=== PATIENT | male | born 1945 | race Caucasian/White ===

== ENCOUNTER 2021-06-15 08:32 | Inpatient (IN) ==
[2021-06-15] MEDS ORDERED: SODIUM CHLORIDE 0.9% 1000ML 1,000 ML IV ONE ×3 (08:45→09:20)
[2021-06-15] MEDS ORDERED: ONDANSETRON INJ 2 MG/ML 2 ML VIAL IV STA (08:45)
[2021-06-15] MEDS ORDERED: fentaNYL citrate 100 MCG/2 ML VIAL IV STA (08:45)
--- NOTE | 2021-06-15 08:50 | Emergency Department Note ---
Impression & Plan Acute necrotizing pancreatitis, Leukocytosis, Acute renal insufficiency, Lactic acidosis ED Provider Note Name: SEVERO CUTLER Age: 75 Sex: M Arrives Via: Walk-In Informant: Patient, Family ED Provider: Mani Bush MD Chief Complaint: Chest Pain Impression: See above Medical Decision Makin yr old male with history of GERD, HTN, HLP, Neuropathy and no previous surgical history arrives with chest & abdominal pain tearing through to back with diffuse abdominal TTP. With symptoms and exam high concern for dissection thus IV obtained, fluids started and sent emergently to CT for evaluation. CT with no acute chest findings, but there is acute pancreatitis with concern necrotizing and possible abscess development. Patient denies history pancr eatitis nor alcohol use. Labs with severely elevated WBC and mild lactate elevation. Sepsis managed with Zosyn, NSS Bolus 3L IV, nss infusion. Pain controlled with IV narcotics. Other labs with mild renal insufficiency though in setting of concern dissection it was felt CT contrast still necessary. LFTs and Bili mildly elevated as well. Patient kept comfortable. Discussed with GI who advised transfer. Attempted to Place for transfer at [facility] but they report they have no available beds. Discussed with Amanda Aldridge who advised that likely not much different treatment if kept at [facility] vs what Amanda would be able to offer at this time. ELI Hale consulted again and plan will be to admit to this facility, keep up agreesive hydration, and monitor in ICU[facility]. Prior Medical Record and Triage/Nursing Notes reviewed by Me Additional history obtained from chart Differentials:Cardiac ischemia, aortic dissection, pulmonary embolism, pneumothorax, pneumonia, pericarditis, myocarditis, esophageal rupture, GERD, cholecystitis, pancreatitis, musculoskeletal, as well as other pathologies. Vital Signs: reviewed and remarkable for Tachy Interventions: Saline lock, nss bolus 3 L IV, Fentanyl 100mcg, Dilaudid 1mg & 0.5mg IV, Zosyn 4.5gm IV Labs:Reviewed and remarkable for elevated wbc, elevated lactate, bumped Cr and elevated LFTs Imaging:X ray results are stated below per my interpretation: Chest: 1 view: No infiltrate, no effusion, normal cardiac border. Radiologist interpretation reviewed by me: See below. Acute pancreatitis with concern abscess/necrosis EKG:Per My Interpretation: Indication Chest Pain: NSR 113 bpm, qtc 452. No Ectopy. No Ischemia. No previous for comparison Cardiac/Tele Monitoring: Cardiac Monitoring: An Order was placed for continuous cardiac monitoring. The monitor shows a rate of 90 with a normal sinus rhythm following sepsis/pain control. Consults:Amanda Hospitalist suggests continued management at [facility]. Kena hospitalist at [place] will admit Plan: Disposition:Hospitalization. Condition: Guarded History of Present Illness:75 yr old male arrives for evaluation of chest pain. Patient with 3 days of chest pain. Substernal and radiates to back. Associated with nausea, vomiting, palpitations. Notes developing severe diffuse abdominal pain over the last few days. Denies headache, cough, chills, fevers, syncope, arm pain, leg weakness, calf swelling, urinary/bowel symptoms nor other symptoms. no medications prior to arrival. Unable to eat nor take meds due to vomiting. No history of similar. Denies trauma, injuries, falls. No previous surgeries. Denies known CAD/Aortic history. ROS: See above HPI for pertinent positives & negatives. A total of 10 systems reviewed and were otherwise negative. Past Medical History:GERD, HTN, HLP, Neuropathy Past Surgical History:none Family History:See Below Social History:See Below Home Medications:See Below Allergies:NKDA Vitals:Blood Pressure: 119/79, Pulse 117, RR 20, T 36.9C, O2 96% on RA Physical Exam: GENERAL: Patient is very unwell appearing and in moderate/severe distress. Moaning loudly EYES: No scleral icterus, unremarkable pupils. ENT: Mucous membranes moist, no nasal congestion. NECK: No masses appreciated, nomeningismus, trachea is midline. RESPIRATORY: No dyspnea. Clear to auscultation and equal bilaterally. No wheeze, no rhonchi. CARDIOVASCULAR: Tachy.No murmurs, rubs, gallops appreciated. GASTROINTESTINAL: Diffuse TTP, mildly distended Abdomen soft, no peritonitis.Bowel sounds positive.No masses appreciated. BACK: No midline tenderness, no CVA tenderness EXTREMITIES: Normal motion all extremities, no cyanosis, no edema. NEUROLOGIC: Hard of hearing, Alert and oriented, no acute motor or sensory deficits, no focal weakness, cranial nerves grossly intact. SKIN: No rash, no jaundice, no diaphoresis. PSYCH: Appropriate GCS: 15 ED Course: Times/Reassessments: vastly improved pain with narcotics though requiring repeat dosing, abdomen without tense nor evidence compartment syndrome. Breathing comfortably. Given increased hydration with evidence of sepsis and hospitalist in to evaluate further. Critical Care: I have personally spent 50 minutes of critical care time in the direct management of this patient. Necrotizing Pancreatitis with severe sepsis. This was a life/limb threatening event. This 50 minutes is in excess of all separately billable procedures. Mani Bush MD Past Med/Surg History Medical History BPH (benign prostatic hyperplasia) GERD (gastroesophageal reflux disease) Hyperlipidemia Hypertension Surgical History H/O: vasectomy Social History Smoking Status: Former smoker Hx Alcohol Use: Yes Alcohol type: beer Hx Substance Use: No Preferred Language: Belizean Communication Ability: Effective Irrigator Sprinkling System Required: No Beliefs That Will Affect Care: None Current Living Situation: Family Other Information That Helps Us Care for You: No Feels Safe at Home: Yes Safety Concerns: Feels Safe At This Time Assistive Devices: Cane, Glasses, Hearing Aid - Left, Hearing Aid - Right and Oxygen - Continuous Allergies Allergies Allergy/AdvReac Type Severity Reaction Status Date / Time No Known Allergies Allergy Verified 06/15/21 10:29 Home Meds Home Medications Medication Instructions Recorded Confirmed atorvastatin 20 mg tablet (Lipitor) 20 mg PO HS 10/28/20 06/15/21 famotidine 20 mg tablet (Pepcid) 20 mg PO BID 10/28/20 06/15/21 lisinopril 20 1 tab PO QAM 10/28/20 06/15/21 mg-hydrochlorothiazide 25 mg tablet (Zestoretic) omega-3 fatty acids-fish oil 340 1 cap PO QAM 10/28/20 06/15/21 mg-1,000 mg capsule (Fish Oil) cholecalciferol (vitamin D3) 50 50 mcg PO QAM 06/15/21 06/15/21 mcg (2,000 unit) capsule (Vitamin D3) finasteride 5 mg tablet (Proscar) 5 mg PO QAM 06/15/21 06/15/21 potassium citrate 10 mEq (1,080 10 meq PO BID 06/15/21 06/15/21 mg) tablet,extended release (Urocit-K 10) tamsulosin 0.4 mg capsule (Flomax) 0.4 mg PO HS 06/15/21 06/15/21 Results & Data (ED) Vital Signs Vital Signs - 24 hr 06/15/21 08:32 06/15/21 08:36 06/15/21 10:32 Temperature 36.9 C 36.9 C Temperature Source Temporal Artery Scan Temporal Artery Scan Pulse Rate 117 H Pulse Rate [Apical] 98 H Pulse Rate from SpO2 Sensor Pulse Rhythm Regular Pulse Strength Normal Respiratory Rate 20 20 Respiratory Effort / Characteristics Non-Labored Spontaneous Non-Labored Spontaneous Non-Labored Spontaneous Respiratory Depth Normal Normal Normal Respiratory Pattern Regular Regular Blood Pressure 119/79 Blood Pressure [Right Arm] 169/87 H Blood Pressure Mean 92 Blood Pressure Mean [Right Arm] 114 Blood Pressure Position Sitting Blood Pressure Position [Right Arm] Lying Pulse Oximetry 96 96 Oxygen Delivery Method Room Air Room Air Room Air Sepsis Recent Fever Within 48 Hours No Sepsis New/Unexplained Change in Mental Status N/A Sepsis Action Taken by Nursing No Action Required 06/15/21 12:00 06/15/21 13:30 Temperature Temperature Source Pulse Rate 107 H 105 H Pulse Rate [Apical] Pulse Rate from SpO2 Sensor 107 H 105 H Pulse Rhythm Pulse Strength Respiratory Rate 20 18 Respiratory Effort / Characteristics Respiratory Depth Respiratory Pattern Blood Pressure 132/81 142/88 H Blood Pressure [Right Arm] Blood Pressure Mean 98 106 Blood Pressure Mean [Right Arm] Blood Pressure Position Blood Pressure Position [Right Arm] Pulse Oximetry 91 91 Oxygen Delivery Method Sepsis Recent Fever Within 48 Hours Sepsis New/Unexplained Change in Mental Status Sepsis Action Taken by Nursing Laboratory Data Result diagrams: 06/16/21 05:23 06/16/21 05:23 Lab Results 06/15/21 06/15/21 06/15/21 Range/Units 08:53 08:53 08:53 WBC 39.22 H* (4.8-10.8) K/uL RBC 5.55 (4.7-6.1) M/uL Hgb 18.0 (14.0-18.0) g/dL POC Hgb (14.0-18.0) g/dl Hct 50.2 (42-52) % POC Hct (42-52) % MCV 90.5 (80-100) fL MCH 32.4 (25-34) pg MCHC 35.9 (32-36) g/dL RDW Std Deviation 44.1 (36.4-46.3) fL RDW Coeff of Yinka 13.6 (11.5-14.5) % Plt Count 263 (130-400) K/uL MPV 9.4 (7.4-10.4) fL Immature Gran % (Auto) 0.7 % Neut % (Auto) 88.4 % Lymph % (Auto) 2.1 % [place] % (Auto) 8.8 % Eos % (Auto) 0.0 % Baso % (Auto) 0.0 % Neut # (Auto) 34.66 H (1.4-6.5) K/uL Lymph # (Auto) 0.82 L (1.2-3.4) K/uL [place] # (Auto) 3.46 H (0.11-0.59) K/uL Eos # (Auto) 0.00 (0-0.5) K/uL Baso # (Auto) 0.01 (0-0.2) K/uL Immature Gran # (Auto) 0.27 H (0.00-0.02) K/uL PT 13.0 H (9.0-12.0) Seconds INR 1.3 H (0.9-1.1) APTT 25.8 (21.0-31.0) Seconds PTT Ratio 1.0 POC Sodium (135-144) mmol/L Sodium 133 L (136-145) mmol/L POC Potassium (3.3-5.0) mmol/L Potassium 3.9 (3.5-5.1) mmol/L POC Chloride (101-112) mmol/L Chloride 99 (98-107) mmol/L Carbon Dioxide 25 (21-32) mmol/L POC Total CO2 (24-31) mmol/L Anion Gap 9.0 (3-11) POC Anion Gap (16-25) mmol/L POC BUN (7-18) mg/dl BUN 40 H (7-18) mg/dl Creatinine 1.89 H (0.6-1.4) mg/dl POC Creatinine (0.6-1.3) mg/dl Est Cr Clr Drug Dosing 40.3 ml/min Est GFR ( Amer) 39.6 ml/min Est GFR (Non-Af Amer) 34.2 ml/min BUN/Creatinine Ratio 20.9 H (10-20) Glucose 141 H (70-99) mg/dl POC Glucose (other) (70-99) mg/dl Lactate (0.4-2.0) mmol/L Calcium 8.5 (8.5-10.1) mg/dl POC Ioniz Calcium Leonard (1.12-1.32) mmol/l Magnesium 1.5 L (1.8-2.4) mg/dl Total Bilirubin 2.6 H (0.2-1) mg/dl Direct Bilirubin 1.0 H (0-0.2) mg/dl AST 286 H (15-37) U/L ALT 631 H (12-78) U/L Alkaline Phosphatase 143 H (45-117) U/L Troponin I < 0.015 (0-0.045) ng/ml Total Protein 7.7 (6.4-8.2) gm/dl Albumin 3.7 (3.4-5.0) gm/dl Lipase 4141 H (73-393) U/L COVID-19 Eval Order SARS-CoV-2 (PCR) (Negative) 06/15/21 06/15/21 06/15/21 Range/Units 09:01 09:14 09:14 WBC (4.8-10.8) K/uL RBC (4.7-6.1) M/uL Hgb (14.0-18.0) g/dL POC Hgb 18.7 H (14.0-18.0) g/dl Hct (42-52) % POC Hct 55 H (42-52) % MCV (80-100) fL MCH (25-34) pg MCHC (32-36) g/dL RDW Std Deviation (36.4-46.3) fL RDW Coeff of Yinka (11.5-14.5) % Plt Count (130-400) K/uL MPV (7.4-10.4) fL Immature Gran % (Auto) % Neut % (Auto) % Lymph % (Auto) % [place] % (Auto) % Eos % (Auto) % Baso % (Auto) % Neut # (Auto) (1.4-6.5) K/uL Lymph # (Auto) (1.2-3.4) K/uL [place] # (Auto) (0.11-0.59) K/uL Eos # (Auto) (0-0.5) K/uL Baso # (Auto) (0-0.2) K/uL Immature Gran # (Auto) (0.00-0.02) K/uL PT (9.0-12.0) Seconds INR (0.9-1.1) APTT (21.0-31.0) Seconds PTT Ratio POC Sodium 134 L (135-144) mmol/L Sodium (136-145) mmol/L POC Potassium 3.8 (3.3-5.0) mmol/L Potassium (3.5-5.1) mmol/L POC Chloride 96 L (101-112) mmol/L Chloride (98-107) mmol/L Carbon Dioxide (21-32) mmol/L POC Total CO2 22 L (24-31) mmol/L Anion Gap (3-11) POC Anion Gap 21.0 (16-25) mmol/L POC BUN 40 H (7-18) mg/dl BUN (7-18) mg/dl Creatinine (0.6-1.4) mg/dl POC Creatinine 1.7 H (0.6-1.3) mg/dl Est Cr Clr Drug Dosing ml/min Est GFR ( Amer) ml/min Est GFR (Non-Af Amer) ml/min BUN/Creatinine Ratio (10-20) Glucose (70-99) mg/dl POC Glucose (other) 148 H (70-99) mg/dl Lactate (0.4-2.0) mmol/L Calcium (8.5-10.1) mg/dl POC Ioniz Calcium Leonard 1.02 L (1.12-1.32) mmol/l Magnesium (1.8-2.4) mg/dl Total Bilirubin (0.2-1) mg/dl Direct Bilirubin (0-0.2) mg/dl AST (15-37) U/L ALT (12-78) U/L Alkaline Phosphatase (45-117) U/L Troponin I (0-0.045) ng/ml Total Protein (6.4-8.2) gm/dl Albumin (3.4-5.0) gm/dl Lipase (73-393) U/L COVID-19 Eval Order Covid19 at [facility] SARS-CoV-2 (PCR) NEGATIVE (Negative) 06/15/21 06/15/21 Range/Units 09:41 12:20 WBC (4.8-10.8) K/uL RBC (4.7-6.1) M/uL Hgb (14.0-18.0) g/dL POC Hgb (14.0-18.0) g/dl Hct (42-52) % POC Hct (42-52) % MCV (80-100) fL MCH (25-34) pg MCHC (32-36) g/dL RDW Std Deviation (36.4-46.3) fL RDW Coeff of Yinka (11.5-14.5) % Plt Count (130-400) K/uL MPV (7.4-10.4) fL Immature Gran % (Auto) % Neut % (Auto) % Lymph % (Auto) % [place] % (Auto) % Eos % (Auto) % Baso % (Auto) % Neut # (Auto) (1.4-6.5) K/uL Lymph # (Auto) (1.2-3.4) K/uL [place] # (Auto) (0.11-0.59) K/uL Eos # (Auto) (0-0.5) K/uL Baso # (Auto) (0-0.2) K/uL Immature Gran # (Auto) (0.00-0.02) K/uL PT (9.0-12.0) Seconds INR (0.9-1.1) APTT (21.0-31.0) Seconds PTT Ratio POC Sodium (135-144) mmol/L Sodium (136-145) mmol/L POC Potassium (3.3-5.0) mmol/L Potassium (3.5-5.1) mmol/L POC Chloride (101-112) mmol/L Chloride (98-107) mmol/L Carbon Dioxide (21-32) mmol/L POC Total CO2 (24-31) mmol/L Anion Gap (3-11) POC Anion Gap (16-25) mmol/L POC BUN (7-18) mg/dl BUN (7-18) mg/dl Creatinine (0.6-1.4) mg/dl POC Creatinine (0.6-1.3) mg/dl Est Cr Clr Drug Dosing ml/min Est GFR ( Amer) ml/min Est GFR (Non-Af Amer) ml/min BUN/Creatinine Ratio (10-20) Glucose (70-99) mg/dl POC Glucose (other) (70-99) mg/dl Lactate 2.6 H* 3.0 H* (0.4-2.0) mmol/L Calcium (8.5-10.1) mg/dl POC Ioniz Calcium Leonard (1.12-1.32) mmol/l Magnesium (1.8-2.4) mg/dl Total Bilirubin (0.2-1) mg/dl Direct Bilirubin (0-0.2) mg/dl AST (15-37) U/L ALT (12-78) U/L Alkaline Phosphatase (45-117) U/L Troponin I (0-0.045) ng/ml Total Protein (6.4-8.2) gm/dl Albumin (3.4-5.0) gm/dl Lipase (73-393) U/L COVID-19 Eval Order SARS-CoV-2 (PCR) (Negative) Administered Medications Atorvastatin Calcium (Atorvastatin 20 Mg Tab) 20 mg PO HS APOLLO Stop: 07/15/21 20:59 Last Admin: 06/15/21 21:24 Dose: 20 mg Documented by: [id number] Famotidine (Famotidine 20 Mg Tab) 20 mg PO BID APOLLO Stop: 07/15/21 20:59 Last Admin: 06/15/21 21:24 Dose: 20 mg Documented by: [id number] Heparin Sodium (Porcine) (Heparin Sod 5,000 Unit/0.5 Ml Vial) 5,000 units SQ Q12H APOLLO Stop: 07/16/21 05:59 Last Admin: 06/16/21 05:26 Dose: 5,000 units Documented by: [id number] Hydromorphone HCl (Hydromorphone Inj 1 Mg/Ml Syringe) 1 mg IV Q2H PRN PRN Reason: Pain Stop: 06/29/21 16:43 Last Admin: 06/16/21 05:39 Dose: 1 mg Documented by: [id number] Admin: 06/16/21 03:29 Dose: 1 mg Documented by: [id number] Admin: 06/16/21 00:02 Dose: 1 mg Documented by: [id number] Admin: 06/15/21 21:17 Dose: 1 mg Documented by: [id number] Lactated Ringer's (Lr) 1,000 mls @ 100 mls/hr IV .Q10H APOLLO Stop: 07/15/21 13:59 Last Admin: 06/16/21 05:26 Dose: 100 mls/hr Documented by: [id number] Infusion: 06/16/21 05:26 Dose: 150 mls/hr Documented by: [id number] Infusion: 06/16/21 01:36 Dose: 150 mls/hr Documented by: [id number] Admin: 06/15/21 23:35 Dose: 200 mls/hr Documented by: [id number] Infusion: 06/15/21 23:35 Dose: 200 mls/hr Documented by: [id number] Infusion: 06/15/21 22:08 Dose: 200 mls/hr Documented by: [id number] Admin: 06/15/21 19:02 Dose: 250 mls/hr Documented by: [id number] Infusion: 06/15/21 19:02 Dose: 250 mls/hr Documented by: [id number] Admin: 06/15/21 15:45 Dose: 250 mls/hr Documented by: [id number] Meropenem 500 mg/ Syringe 10 mls @ 2 mls/min IV Q8H APOLLO; Protocol Stop: 06/25/21 15:59 Last Admin: 06/16/21 00:01 Dose: 2 mls/min Documented by: [id number] Admin: 06/15/21 17:18 Dose: 2 mls/min Documented by: [id number] Tamsulosin HCl (Tamsulosin Hcl 0.4 Mg Cap) 0.4 mg PO HS APOLLO Stop: 07/15/21 20:59 Last Admin: 06/15/21 21:25 Dose: 0.4 mg Documented by: [id number] Discontinued Medications Fentanyl Citrate (Fentanyl Citrate 100 Mcg/2 Ml Vial) 75 mcg IV NOW STA Stop: 06/15/21 08:46 Last Admin: 06/15/21 09:10 Dose: 75 mcg Documented by: [id number] Heparin Sodium (Porcine) (Heparin Sod 5,000 Unit/0.5 Ml Vial) 5,000 units SQ NOW STA Stop: 06/15/21 16:06 Last Admin: 06/15/21 16:49 Dose: 5,000 units Documented by: [id number] Hydromorphone HCl (Hydromorphone Inj 1 Mg/Ml Syringe) 1 mg IV NOW STA Stop: 06/15/21 11:19 Last Admin: 06/15/21 11:23 Dose: 1 mg Documented by: [id number] Hydromorphone HCl (Hydromorphone Inj 0.5 Mg/0.5 Ml Syr) 0.5 mg IV NOW STA Stop: 06/15/21 12:21 Last Admin: 06/15/21 12:30 Dose: 0.5 mg Documented by: [id number] Hydromorphone HCl (Hydromorphone Inj 0.5 Mg/0.5 Ml Syr) 0.5 mg IV Q4H PRN PRN Reason: Pain Stop: 06/29/21 15:43 Last Admin: 06/15/21 16:22 Dose: 0.5 mg Documented by: [id number] Hydromorphone HCl (Hydromorphone Inj 1 Mg/Ml Syringe) 1 mg IV NOW STA Stop: 06/15/21 16:44 Last Admin: 06/15/21 16:48 Dose: 1 mg Documented by: [id number] Sodium Chloride (Nss 1000ml) 1,000 mls @ 999 mls/hr IV .Q1H1M ONE Stop: 06/15/21 09:45 Last Infusion: 06/15/21 10:46 Dose: 0 mls/hr Documented by: [id number] Admin: 06/15/21 09:10 Dose: 999 mls/hr Documented by: [id number] Sodium Chloride (Nss 1000ml) 1,000 mls @ 999 mls/hr IV .Q1H1M ONE Stop: 06/15/21 10:18 Last Infusion: 06/15/21 12:32 Dose: 0 mls/hr Documented by: [id number] Admin: 06/15/21 11:19 Dose: 999 mls/hr Documented by: [id number] Piperacillin Sod/Tazobactam Sod (Zosyn) 4.5 gm in 120 mls @ 240 mls/hr IV NOW STA Stop: 06/15/21 09:49 Last Infusion: 06/15/21 11:19 Dose: 0 mls/hr Documented by: [id number] Admin: 06/15/21 10:23 Dose: 240 mls/hr Documented by: [id number] Sodium Chloride (Nss 1000ml) 1,000 mls @ 999 mls/hr IV .Q1H1M ONE Stop: 06/15/21 10:20 Last Infusion: 06/15/21 12:32 Dose: 0 mls/hr Documented by: [id number] Admin: 06/15/21 10:23 Dose: 999 mls/hr Documented by: [id number] Sodium Chloride (Nss 1000ml) 1,000 mls @ 250 mls/hr IV .Q4H APOLLO Stop: 07/15/21 12:29 Last Infusion: 06/15/21 14:55 Dose: 0 mls/hr Documented by: [id number] Admin: 06/15/21 12:30 Dose: 125 mls/hr Documented by: [id number] Magnesium Sulfate/Dextrose (Magnesium Sulfate / D5w) 1 gm in 100 mls @ 50 mls/hr IV Q2H APOLLO Stop: 06/15/21 21:25 Last Infusion: 06/15/21 21:50 Dose: 0 mls/hr Documented by: [id number] Admin: 06/15/21 19:43 Dose: 50 mls/hr Documented by: [id number] Infusion: 06/15/21 19:43 Dose: 50 mls/hr Documented by: [id number] Admin: 06/15/21 17:53 Dose: 50 mls/hr Documented by: [id number] Ondansetron HCl (Ondansetron Inj 2 Mg/Ml 2 Ml Vial) 4 mg IV NOW STA Stop: 06/15/21 08:46 Last Admin: 06/15/21 09:10 Dose: 4 mg Documented by: [id number] Imaging Data Radiologist's Impression: Abdomen/Pelvis CTA 06/15/21 08:45 CT angio abd pelvis wo/w con CT DOSE: CLINICAL HISTORY: tearing chest pain from chest in to entire abdomen TECHNIQUE: A dose lowering technique was utilized adhering to the principles of ALARA. COMPARISON STUDY: None. FINDINGS: Abdominal aorta is normal in caliber with scattered calcifications of its wall. There is no dissection or aneurysmal dilatation is seen. Liver, spleen and bilateral adrenal glands are unremarkable. Gallbladder is fluid-filled without intraluminal radiopaque gallstones. Evaluation of the pancreas shows 3.3 cm area of decreased opacification within pancreatic body, extensive peripancreatic fat stranding and 2.6 x 2.2 cm fluid collection at superior aspect of the pancreatic body concerning for acute pancreatitis which is complicated by focal area of necrosis and possible abscess formation. Scattered areas of fluid collection is seen extending from the pancreas to the lower abdomen and right and left paracolic gutter. Evaluation of the kidneys shows no evidence of hydronephrosis or nephrolithiasis. Urinary bladder is adequately filled with urine. Prostate gland is mildly enlarged. There is large diverticulum at the first portion of duodenum with diffuse enhancement of its mucosa and air-fluid level. Second and third portion of duodenum shows mild thickening of its wall and diffuse mucosal enhancement, likely reactive due to close proximity to the pancreas. Distal loops of small bowel are collapsed. Large bowel is nondilated. Diverticulosis of sigmoid colon is seen without evidence of diverticulitis. Adenopathy: None. Osseous structures: Degenerative changes of the spine. IMPRESSION: 1. Acute pancreatitis. Possible pancreatic necrosis and abscess/cyst formation. Short-term follow-up is recommended. Report will be sent to emergency Department. 2. Large duodenal diverticulum. Mucosal enhancement and wall thickening of proximal duodenum, likely reactive due to surrounding inflammatory changes from acute pancreatitis. 3. Diverticulosis of sigmoid colon without evidence of diverticulitis. 4. Normal abdominal aorta without aneurysmal dilatation or dissection. 5. The rest of findings as above. ACT 112: Negative or not required by law. The above report was generated using voice recognition software. It may contain grammatical, syntax or spelling errors. Electronically signed by: Shandra Pérez DO 06/15/2021 10:54 AM Chest CTA 06/15/21 08:45 CT ANGIOGRAM OF THE CHEST COMBO CLINICAL HISTORY: Lower chest pain is at radiates into entire back. Vomiting. COMPARISON STUDY: None TECHNIQUE: Before and following the IV administration of 120 cc of Optiray, CT angiogram of the chest was performed from the thoracic inlet to the upper abdomen utilizing the dissection protocol. Images are reviewed in the axial, sagittal, and coronal planes. 3-D MIPS images are created and assessed. IV contrast was administered without complication. A dose lowering technique was utilized adhering to the principles of ALARA. CT DOSE: 2573.26 mGy.cm FINDINGS: Thyroid: Imaged portions of the thyroid gland are normal in size and attenuation. Mild wall thinning of distal esophagus with surrounding fat stranding (6/179). Small fat containing hiatal hernia is seen. Thoracic aorta: The thoracic aorta is normal in caliber and demonstrates standard 3-vessel arch anatomy. No dissection is seen. Minimal calcified aortic wall plaques are seen within aortic arch. Pulmonary vasculature: Is normal in caliber. Heart: The heart is normal in size and configuration, and without pericardial effusion. Coronary calcifications are seen. Lungs and pleural spaces: Tracheobronchial tree is patent. Small amount of secretion is seen within right tracheal wall, vinny and dependent portion of the left mainstem bronchus. Patchy consolidative opacities are seen at dependent portion of the left lower lobe and lingula which opacified with IV contrast most likely representing atelectasis. Mild diffuse thickening of bronchial rios are seen throughout bilateral lungs. Mild compressive atelectasis is seen at dependent portions of bilateral lower lobes. Limited evaluation due to motion artifact and low inspiratory effort. Trace left pleural effusion is seen. Upper abdomen: Please see separate report of CT of abdomen and pelvis. Skeletal structures: No multilevel degenerative changes of the spine with prominent anterior osteophytes. IMPRESSION: 1. Mild wall thickening and surrounding fat stranding within distal esophagus which might represent esophagitis versus other etiology. Please correlate above- mentioned findings with GI evaluation. 2. Normal appearance of aorta without aneurysmal dilatation or dissection. 3. Atelectasis within lingula and left lower lobe. Possible bronchitis. Trace left pleural effusion. 4. Atherosclerosis. 5. The rest of findings as above. ACT 112: Negative or not required by law. The above report was generated using voice recognition software. It may contain grammatical, syntax or spelling errors. Electronically signed by: Shandra Pérez DO 06/15/2021 10:39 AM Chest X-Ray 06/15/21 08:45 XR chest 1V portable CLINICAL HISTORY: chest pain COMPARISON STUDY: No previous studies for comparison. FINDINGS: No pneumothorax. Mild blunting of the left costophrenic angle which could be due to atelectasis or small left pleural effusion. Linear density at the left base might represent atelectasis or infiltrates. Overall lung volumes are decreased with crowded lung markings. Cardiomediastinal silhouette is within normal limits in size. No significant pulmonary vascular congestion.. Aorta is tortuous. Osseous structures: Degenerative changes of the spine and bilateral shoulder. IMPRESSION: 1. Atelectasis or infiltrate at the left base. Possible small left pleural effusion. ACT 112: Negative or not required by law. The above report was generated using voice recognition software. It may contain grammatical, syntax or spelling errors. Electronically signed by: Shandra Pérez DO 06/15/2021 10:27 AM Discharge Plan Visit Data Chief Complaint: Chest Pain Stated Complaint: CHEST PAIN INTO LOWER BACK ED Provider: Mani Bush Discharge Problem: Acute necrotizing pancreatitis, Leukocytosis, Acute renal insufficiency, Lactic acidosis Patient Disposition: Admitted As Inpatient Discharge Instructions Interventions: ED Discharge Assessment Last Done: 06/15/21 15:00
[2021-06-15 09:14] LABS: iSTAT Creatinine 1.7 mg/dl (0.6-1.3); iSTAT Hemoglobin 18.7 g/dl (14.0-18.0); iSTAT Ionized Calcium 1.02 mmol/l (1.12-1.32); iSTAT Potassium 3.8 mmol/L (3.3-5.0)
[2021-06-15 09:14] LABS: Hematocrit (blood only) 50.2 % (42-52); Mean Corpuscular Hemoglobin 32.4 pg (25-34); Mean Corpuscular Hgb Conc 35.9 g/dL (32-36); Mean Corpuscular Volume 90.5 fL (80-100); Mean Platelet Volume 9.4 fL (7.4-10.4); Platelet Count 263 K/uL (130-400); RDW Coefficient of Variation 13.6 % (11.5-14.5); RDW Standard Deviation 44.1 fL (36.4-46.3); Red Blood Count 5.55 M/uL (4.7-6.1); White Blood Count 39.22 K/uL (4.8-10.8)
[2021-06-15 09:17] LABS: INR 1.3 (0.9-1.1); Partial Thromboplastin Time 25.8 Seconds (21.0-31.0)
[2021-06-15] MEDS ORDERED: PIPERACILLIN/TAZOBACTAM 4.5 GM/120 ML BAG IV STA (09:20)
[2021-06-15 09:24] LABS: Alanine Aminotransferase 631 U/L (12-78); Albumin Level 3.7 gm/dl (3.4-5.0); Aspartate Aminotransferase 286 U/L (15-37); BUN Creatinine Ratio 20.9 (10-20); Blood Urea Nitrogen 40 mg/dl (7-18); Calcium 8.5 mg/dl (8.5-10.1); Carbon Dioxide 25 mmol/L (21-32); Chloride 99 mmol/L (98-107); Creatinine Clr Calc Pharmacy 40.3 ml/min; Est GFR (African American) 39.6 ml/min; Est GFR (Non-African American) 34.2 ml/min; Glucose 141 mg/dl (70-99); Magnesium 1.5 mg/dl (1.8-2.4); Potassium 3.9 mmol/L (3.5-5.1); Sodium 133 mmol/L (136-145)
[2021-06-15 09:29] LABS: Alkaline Phosphatase 143 U/L (45-117); Bilirubin,Total 2.6 mg/dl (0.2-1); Lipase 4141 U/L (73-393); Total Protein 7.7 gm/dl (6.4-8.2); Troponin I < 0.015 ng/ml (0-0.045)
[2021-06-15 09:47] LABS: Basophils # (auto) 0.01 K/uL (0-0.2); Immature Granulocytes # (auto) 0.27 K/uL (0.00-0.02); Immature Granulocytes % (auto) 0.7 %; Lymphocytes # (auto) 0.82 K/uL (1.2-3.4); Lymphocytes % (auto) 2.1 %; Monocytes # (auto) 3.46 K/uL (0.11-0.59); Monocytes % (auto) 8.8 %; Neutrophils # (auto) 34.66 K/uL (1.4-6.5); Neutrophils % (auto) 88.4 %
--- NOTE | 2021-06-15 10:29 | XRay Report ---
XR chest 1V portable CLINICAL HISTORY: chest pain COMPARISON STUDY: No previous studies for comparison. FINDINGS: No pneumothorax. Mild blunting of the left costophrenic angle which could be due to atelectasis or small left pleural effusion. Linear density at the left base might represent atelectasis or infiltrates. Overall lung volumes are decreased with crowded lung markings. Cardiomediastinal silhouette is within normal limits in size. No significant pulmonary vascular congestion.. Aorta is tortuous. Osseous structures: Degenerative changes of the spine and bilateral shoulder. IMPRESSION: 1. Atelectasis or infiltrate at the left base. Possible small left pleural effusion. ACT 112: Negative or not required by law. The above report was generated using voice recognition software. It may contain grammatical, syntax o r spelling errors. Electronically signed by: Shandra Pérez DO 06/15/2021 10:27 AM
--- NOTE | 2021-06-15 10:41 | CT Scan Report ---
CT ANGIOGRAM OF THE CHEST COMBO CLINICAL HISTORY: Lower chest pain is at radiates into entire back. Vomiting. COMPARISON STUDY: None TECHNIQUE: Before and following the IV administration of 120 cc of Optiray, CT angiogram of the chest was performed from the thoracic inlet to the upper abdomen utilizing the dissection protocol. Images are reviewed in the axial, sagittal, and coronal planes. 3-D MIPS images are created and assessed. I V contrast was administered without complication. A dose lowering technique was utilized adhering to the principles of ALARA. CT DOSE: 2573.26 mGy.cm FINDINGS: Thyroid: Imaged portions of the thyroid gland are normal in size and attenuation. Mild wall thinning of distal esophagus with surrounding fat stranding (6/179). Small fat containing h iatal hernia is seen. Thoracic aorta: The thoracic aorta is normal in caliber and demonstrates standard 3-vessel arch anato my. No dissection is seen. Minimal calcified aortic wall plaques are seen within aortic arch. Pulmonary vasculature: Is normal in caliber. Heart: The heart is normal in size and configuration, and without pericardial effusion. Coronary calc ifications are seen. Lungs and pleural spaces: Tracheobronchial tree is patent. Small amount of secretion is seen within right tracheal wall, vinny and dependent portion of the lef t mainstem bronchus. Patchy consolidative opacities are seen at dependent portion of the left lower lobe and lingula which opacified with IV contrast most likely representing atelectasis. Mild diffuse thickening of bronchial rios are seen throughout bilateral lungs. Mild compressive atelectasis is seen at dependent portions of bilateral lower lobes. Limited evaluation due to motion artifact and low inspiratory effort. Trace left pleural effusion is seen. Upper abdomen: Please see separate report of CT of abdomen and pelvis. Skeletal structures: No multilevel degenerative changes of the spine with prominent anterior osteophy jumana. IMPRESSION: 1. Mild wall thickening and surrounding fat stranding within distal esophagus which might represent esophagitis versus other etiology. Please correlate above-mentioned findings with GI evaluation. 2. Normal appearance of aorta without aneurysmal dilatation or dissection. 3. Atelectasis within lingula and left lower lobe. Possible bronchitis. Trace left pleural effusion. 4. Atherosclerosis. 5. The rest of findings as above. ACT 112: Negative or not required by law. The above report was generated using voice recognition software. It may contain grammatical, syntax o r spelling errors. Electronically signed by: Shandra Pérez DO 06/15/2021 10:39 AM
--- NOTE | 2021-06-15 10:55 | CT Scan Report ---
CT angio abd pelvis wo/w con CT DOSE: CLINICAL HISTORY: tearing chest pain from chest in to entire abdomen TECHNIQUE: A dose lowering technique was utilized adhering to the principles of ALARA. COMPARISON STUDY: None. FINDINGS: Abdominal aorta is normal in caliber with scattered calcifications of its wall. There is no dissectio n or aneurysmal dilatation is seen. Liver, spleen and bilateral adrenal glands are unremarkable. Gallbladder is fluid-filled without intraluminal radiopaque gallstones. Evaluation of the pancreas shows 3.3 cm area of decreased opacification within pancreatic body, exten sive peripancreatic fat stranding and 2.6 x 2.2 cm fluid collection at superior aspect of the pancrea tic body concerning for acute pancreatitis which is complicated by focal area of necrosis and possibl e abscess formation. Scattered areas of fluid collection is seen extending from the pancreas to the lower abdomen and righ t and left paracolic gutter. Evaluation of the kidneys shows no evidence of hydronephrosis or nephrolithiasis. Urinary bladder is adequately filled with urine. Prostate gland is mildly enlarged. There is large diverticulum at the first portion of duodenum with diffuse enhancement of its mucosa and air-fluid level. Second and third portion of duodenum shows mild thickening of its wall and diffu se mucosal enhancement, likely reactive due to close proximity to the pancreas. Distal loops of small bowel are collapsed. Large bowel is nondilated. Diverticulosis of sigmoid colon is seen without evid ence of diverticulitis. Adenopathy: None. Osseous structures: Degenerative changes of the spine. IMPRESSION: 1. Acute pancreatitis. Possible pancreatic necrosis and abscess/cyst formation. Short-term follow-up is recommended. Report will be sent to emergency Department. 2. Large duodenal diverticulum. Mucosal enhancement and wall thickening of proximal duodenum, likely reactive due to surrounding inflammatory changes from acute pancreatitis. 3. Diverticulosis of sigmoid colon without evidence of diverticulitis. 4. Normal abdominal aorta without aneurysmal dilatation or dissection. 5. The rest of findings as above. ACT 112: Negative or not required by law. The above report was generated using voice recognition software. It may contain grammatical, syntax o r spelling errors. Electronically signed by: Shandra Pérez DO 06/15/2021 10:54 AM
[2021-06-15] MEDS ORDERED: HYDROmorphone INJ 1 MG/ML SYRINGE IV STA ×2 (11:18→16:43)
[2021-06-15] MEDS ORDERED: HYDROmorphone INJ 0.5 MG/0.5 ML SYR IV STA (12:20)
[2021-06-15] MEDS ORDERED: SODIUM CHLORIDE 0.9% 1000ML 1,000 ML IV SCH (12:30)
--- NOTE | 2021-06-15 13:52 | History & Physical Report ---
Date of Service June 15, 2021 Assessment & Plan (1) Sepsis: (2) Acute necrotizing pancreatitis: Plan: This is a 75yo M with a PMH of HTN, HLD, peripheral neuropathy who presents with worsening abdominal pain x3 days. HR 117, WBC 39, lactate 3.0 Tbili 2.6, dbili 1, AST 286, ALT 631, alk phos 142, lipase 4,141 CT abd/pelvis with acute pancreatitis. Possible pancreatic necrosis and abscess/cyst formation No history of pancreatitis. Denies tobacco or alcohol use. ? Gall stone (does have gall bladder) ER discussed potential transfer to [place] with Dr. Aldridge who advised that treatment would likely be the same if kept at [facility] Case discussed with Dr. Hale of GI, who recommends management in ICU Dr. Umanzor aware and accepts patient LR @250 ml/hr Starting IV Meropenem Continue trending lactate (3) Acute renal insufficiency: Plan: Unknown renal baseline but Cr 1.89 in setting of sepsis, necrotizing pancreatitis Continue to monitor with daily BMP (4) Hypertension: Plan: Home meds include lisinopril- hctz, which we will hold at this point due to potential FR[place]LIN and dehydration (5) Hyperlipidemia: Plan: On statin at home (6) BPH (benign prostatic hyperplasia): Plan: Flomax HS Code status: FULL PCP: [facility] MK Thompson Dispo: Admitted to ICU. Discharge planning ordered Patient seen in collaboration with Dr. Reed. Please see addendum. History of Present Illness Chief Complaint: abd pain Primary Care Provider: Júnior Thompson PA-C This is a 75yo M with a PMH of HTN, HLD, peripheral neuropathy who presents with worsening abdominal pain x3 days. Endorses diffuse sharp 10/10 abdominal pain that is constant and most painful in epigastric region with radiation to back. Not currently nauseated but endorses nausea with a few episodes of emesis 2 nights ago that were dark in color, described as black. No recurrent emesis since then. Poor appetite. Pain persisted at home but patient did not take any medication for it. Patient denies any history of pancreatitis. Is not smoking or drinking alcohol at this time. Remote history. Does have history of hyperlipidemia for which she is taking a statin. Is a [facility] patient of MK Thompson. Denies fever, chills, lightheadedness, headache, chest pain, shortness of breath, dysuria, diarrhea or constipation. Allergies Allergy/AdvReac Type Severity Reaction Status Date / Time No Known Allergies Allergy Verified 06/15/21 10:29 Home Medications Medication Instructions Recorded Confirmed Type atorvastatin 20 mg tablet (Lipitor) 20 mg PO HS 10/28/20 06/15/21 History famotidine 20 mg tablet (Pepcid) 20 mg PO BID 10/28/20 06/15/21 History lisinopril 20 1 tab PO QAM 10/28/20 06/15/21 History mg-hydrochlorothiazide 25 mg tablet (Zestoretic) omega-3 fatty acids-fish oil 340 1 cap PO QAM 10/28/20 06/15/21 History mg-1,000 mg capsule (Fish Oil) cholecalciferol (vitamin D3) 50 50 mcg PO QAM 06/15/21 06/15/21 History mcg (2,000 unit) capsule (Vitamin D3) finasteride 5 mg tablet (Proscar) 5 mg PO QAM 06/15/21 06/15/21 History potassium citrate 10 mEq (1,080 10 meq PO BID 06/15/21 06/15/21 History mg) tablet,extended release (Urocit-K 10) tamsulosin 0.4 mg capsule (Flomax) 0.4 mg PO HS 06/15/21 06/15/21 History Past Med/Surg History Medical History BPH (benign prostatic hyperplasia) GERD (gastroesophageal reflux disease) Hyperlipidemia Hypertension Surgical History H/O: vasectomy Social History Smoking Status: Former smoker Hx Alcohol Use: Yes Alcohol type: beer Hx Substance Use: No Preferred Language: Guinean Communication Ability: Effective Internal Grinder Required: No Beliefs That Will Affect Care: None Current Living Situation: Family Other Information That Helps Us Care for You: No Feels Safe at Home: Yes Safety Concerns: Feels Safe At This Time Assistive Devices: Cane, Glasses, Hearing Aid - Left and Hearing Aid - Right Review of Systems Review of Systems: At least ten systems reviewed and negative except as noted in the HPI. Physical Exam Physical Exam: General Appearance: vitals as above, NAD, sitting up in bed, appears acutely ill, conversing easily Head: normocephalic, atraumatic Eyes: normal inspection, PERRL, conjunctivae normal, anicteric sclerae ENT: external ear and nose normal, oropharynx normal Neck: normal visual inspection, trachea midline, no thyromegaly Respiratory: normal respiratory effort, lungs clear to auscultation, no wheeze, rales, rhonchi. No accessory muscle use Cardiovascular: tachycardic rate, regular rhythm, no murmur appreciated, normal peripheral pulses, no BLE edema. Vessels: no JVD Chest: normal inspection of chest Abdomen/GI: normal bowel sounds, soft, diffuse TTP, no hepatosplenomegaly Extremities/Musculoskeletal: no cyanosis or clubbing, extremities motor strength 5/5 Neurologic: PERRL, EOMI, accommodation nl, no face palsy, no dysarthria, CN's II-XI intact bilaterally and moves all extremities Psychiatric: A+Ox3, euthymic affect Skin: no rashes, normal color, warm/dry Results & Data Results & Data ([facility]) Vital Signs (Past 12 Hours) Vital Signs Temp Pulse Pulse Resp BP BP Pulse Ox 06/15/21 13:30 105 H 18 142/88 H 91 06/15/21 12:00 107 H 20 132/81 91 06/15/21 10:32 36.9 C 98 H 20 169/87 H 96 06/15/21 08:36 36.9 C 117 H 20 119/79 96 Laboratory Results Short CBC 06/15/21 Range/Units 08:53 WBC 39.22 H* (4.8-10.8) K/uL Hgb 18.0 (14.0-18.0) g/dL Hct 50.2 (42-52) % Plt Count 263 (130-400) K/uL BMP 06/15/21 08:53 Sodium 133 L Potassium 3.9 Chloride 99 Carbon Dioxide 25 BUN 40 H Creatinine 1.89 H Glucose 141 H Calcium 8.5 Cardiac Enzymes 06/15/21 Range/Units 08:53 Troponin I < 0.015 (0-0.045) ng/ml Liver Function 06/15/21 Range/Units 08:53 Total Bilirubin 2.6 H (0.2-1) mg/dl Direct Bilirubin 1.0 H (0-0.2) mg/dl AST 286 H (15-37) U/L ALT 631 H (12-78) U/L Alkaline Phosphatase 143 H (45-117) U/L Albumin 3.7 (3.4-5.0) gm/dl Urine 06/15/21 Range/Units 14:01 Urine Color Dark Yellow Urine Appearance Clear (Clear) Urine pH 5.5 (4.5-7.5) Ur Specific [place] > 1.045 H (1.000-1.030) Urine Protein Trace H (Negative) Urine Glucose (UA) Negative (Negative) Diagnostic Findings Abdomen/Pelvis CTA 06/15/21 08:45 CT angio abd pelvis wo/w con CT DOSE: CLINICAL HISTORY: tearing chest pain from chest in to entire abdomen TECHNIQUE: A dose lowering technique was utilized adhering to the principles of ALARA. COMPARISON STUDY: None. FINDINGS: Abdominal aorta is normal in caliber with scattered calcifications of its wall. There is no dissection or aneurysmal dilatation is seen. Liver, spleen and bilateral adrenal glands are unremarkable. Gallbladder is fluid-filled without intraluminal radiopaque gallstones. Evaluation of the pancreas shows 3.3 cm area of decreased opacification within pancreatic body, extensive peripancreatic fat stranding and 2.6 x 2.2 cm fluid collection at superior aspect of the pancreatic body concerning for acute pancreatitis which is complicated by focal area of necrosis and possible abscess formation. Scattered areas of fluid collection is seen extending from the pancreas to the lower abdomen and right and left paracolic gutter. Evaluation of the kidneys shows no evidence of hydronephrosis or nephrolithiasis. Urinary bladder is adequately filled with urine. Prostate gland is mildly enlarged. There is large diverticulum at the first portion of duodenum with diffuse enhancement of its mucosa and air-fluid level. Second and third portion of duodenum shows mild thickening of its wall and diffuse mucosal enhancement, likely reactive due to close proximity to the pancreas. Distal loops of small bowel are collapsed. Large bowel is nondilated. Diverticulosis of sigmoid colon is seen without evidence of diverticulitis. Adenopathy: None. Osseous structures: Degenerative changes of the spine. IMPRESSION: 1. Acute pancreatitis. Possible pancreatic necrosis and abscess/cyst formation. Short-term follow-up is recommended. Report will be sent to emergency Department. 2. Large duodenal diverticulum. Mucosal enhancement and wall thickening of proximal duodenum, likely reactive due to surrounding inflammatory changes from acute pancreatitis. 3. Diverticulosis of sigmoid colon without evidence of diverticulitis. 4. Normal abdominal aorta without aneurysmal dilatation or dissection. 5. The rest of findings as above. ACT 112: Negative or not required by law. The above report was generated using voice recognition software. It may contain grammatical, syntax or spelling errors. Electronically signed by: Shandra Pérez DO 06/15/2021 10:54 AM Chest CTA 06/15/21 08:45 CT ANGIOGRAM OF THE CHEST COMBO CLINICAL HISTORY: Lower chest pain is at radiates into entire back. Vomiting. COMPARISON STUDY: None TECHNIQUE: Before and following the IV administration of 120 cc of Optiray, CT angiogram of the chest was performed from the thoracic inlet to the upper abdomen utilizing the dissection protocol. Images are reviewed in the axial, sagittal, and coronal planes. 3-D MIPS images are created and assessed. IV contrast was administered without complication. A dose lowering technique was utilized adhering to the principles of ALARA. CT DOSE: 2573.26 mGy.cm FINDINGS: Thyroid: Imaged portions of the thyroid gland are normal in size and attenuation. Mild wall thinning of distal esophagus with surrounding fat stranding (6/179). Small fat containing hiatal hernia is seen. Thoracic aorta: The thoracic aorta is normal in caliber and demonstrates standard 3-vessel arch anatomy. No dissection is seen. Minimal calcified aortic wall plaques are seen within aortic arch. Pulmonary vasculature: Is normal in caliber. Heart: The heart is normal in size and configuration, and without pericardial effusion. Coronary calcifications are seen. Lungs and pleural spaces: Tracheobronchial tree is patent. Small amount of secretion is seen within right tracheal wall, vinny and dependent portion of the left mainstem bronchus. Patchy consolidative opacities are seen at dependent portion of the left lower lobe and lingula which opacified with IV contrast most likely representing atelectasis. Mild diffuse thickening of bronchial rios are seen throughout bilateral lungs. Mild compressive atelectasis is seen at dependent portions of bilateral lower lobes. Limited evaluation due to motion artifact and low inspiratory effort. Trace left pleural effusion is seen. Upper abdomen: Please see separate report of CT of abdomen and pelvis. Skeletal structures: No multilevel degenerative changes of the spine with prominent anterior osteophytes. IMPRESSION: 1. Mild wall thickening and surrounding fat stranding within distal esophagus which might represent esophagitis versus other etiology. Please correlate above- mentioned findings with GI evaluation. 2. Normal appearance of aorta without aneurysmal dilatation or dissection. 3. Atelectasis within lingula and left lower lobe. Possible bronchitis. Trace left pleural effusion. 4. Atherosclerosis. 5. The rest of findings as above. ACT 112: Negative or not required by law. The above report was generated using voice recognition software. It may contain grammatical, syntax or spelling errors. Electronically signed by: Shandra Pérez DO 06/15/2021 10:39 AM Chest X-Ray 06/15/21 08:45 XR chest 1V portable CLINICAL HISTORY: chest pain COMPARISON STUDY: No previous studies for comparison. FINDINGS: No pneumothorax. Mild blunting of the left costophrenic angle which could be due to atelectasis or small left pleural effusion. Linear density at the left base might represent atelectasis or infiltrates. Overall lung volumes are decreased with crowded lung markings. Cardiomediastinal silhouette is within normal limits in size. No significant pulmonary vascular congestion.. Aorta is tortuous. Osseous structures: Degenerative changes of the spine and bilateral shoulder. IMPRESSION: 1. Atelectasis or infiltrate at the left base. Possible small left pleural effusion. ACT 112: Negative or not required by law. The above report was generated using voice recognition software. It may contain grammatical, syntax or spelling errors. Electronically signed by: Shandra Pérez DO 06/15/2021 10:27 AM Code Status & VTE Plan VTE Prophylaxis Plan VTE Prophylaxis will be ordered: Yes Supervising Physician Co-Signing Physician Notes Attending addendum The patient was seen and examined in ICU Is a 75-year-old male was admitted with worsening abdominal pain for the last 3 days and noted to have acute necrotizing pancreatitis He remains unstable in the ICU but has been feeling a little better since admission Denies any nausea and or vomiting and the pain seems to be reasonably stable On examination Acute distress due to abdominal distention and pain Has tachycardia and tachypnea otherwise hemodynamically stable Chest-clear to auscultate bilaterally Heart-S1-S2, tachycardic Abdomen-distended, mildly tender all over specially over epigastrium, bowel sounds sluggish and difficult to feel for any organs 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 Generally weak His admission labs, EKG and imaging studies reviewed Has acute necrotizing pancreatitis-transferred to [facility] was attempted at presentation by the ER physician and was advised to have conservative management Appreciate GI and shrimp header input We will continue IV antibiotics and IV fluid and pain medications with suppor tive care Agree with assessment and plan as outlined above by MK Rehman DR
--- NOTE | 2021-06-15 13:53 | Critical Care Consultation ---
Date of Consultation June 15, 2021 Assessment & Plan (1) Acute necrotizing pancreatitis: Reason Critically Ill: 75 y/o male admitted for acute pancreatitis. He was transferred to the ICU because of pancreatic necrosis w/ possible abscess and septic presentation w/ severe leukocytosis and climbing lactate. acute necrotizing pancreatitis with severe sepsis - [place] (13, 15% nonoperative mortality). BISAP (3, >15% mortality). [place] (3 points at admission, severe). - tachycardic, tachypneic, elevated lactate 2.6, wbc of 40. - he has significant tbili (2.6) and transaminitis (AST 286, ALT 631), hepatocellular>cholestatic - etiologies considered: gallstone, HCTZ, etoh (distant hx use), tobacco (distant heavy use), HLD (will order panel), autoimmune (denies family hx), trauma (denies), infection (denies hx hepatitis), obstruction (denies celiac, IBD). - severe pain, may be partially masked by narcotic medications - CT abd showing possible pancreatic necrosis (3.3cm area at body) and abscess/cyst (2.6x2.2cm) formation. Wall thickening of proximal duodenum likely from surrounding inflammation. No radiopaque gallstones noted. - GI consulted - s/p Zosyn x1 in ED - plan: fluids (250mL/hr), pain control, NPO, abx (Meropenem), assess for worsening sepsis (would suggest need for intervention such as percutaneous drainage). - Follow labs. Check hepatitis panel. Check RUQ US. Monitor intra-abd compartment pressures via chao. Neuro - [facility] ICU: negative - analgesia: IV Dilaudid 1mg q2hprn Cardiac - - cardiac monitoring for sepsis hypertension - hold home lisinopril-hctz - exacerbated by pain Respiratory - - goal saturation >90; he is tolerating room air and in no respiratory distress GI - - see above - NPO abnormal liver enzymes - as above. follow CMP RENAL/LYTES - - acute kidney injury - Cr 1.89, baseline unknown - most likely prerenal/hypovolemic [place]LIN given HPI's lack of PO intake x3 days - ordered lab workup - bladder scan if poor UOP, has hx of BPH - hyponatremia 133 - follow BMP, continue LR - - chao, monitor Is/Os ENDO - - no listed hx of diabetes - check A1C, more prone to gallstones if diabetic HEME - - stable H/H, follow CBC ID - see above - urine and blood cultures pending - follow CBC LINES/IV ACCESS - PIVs intact DVT PROPHYLAXIS - SCDs, subq heparin 5000u q12h CODE - full (2) Acute renal insufficiency: (3) BPH (benign prostatic hyperplasia): (4) Admitted to intensive care unit: (5) Sepsis: (6) Hyperlipidemia: (7) Hypertension: (8) GERD (gastroesophageal reflux disease): (9) Hyponatremia: Supervising Physician Co-Signing Physician Notes Dr. Iniguez was the resident-physician during care of patient. I separately evaluat ed patient for ngo portions of the history and the exam. I was present during the critical portion of medical decision making, and I discussed the case with the resident. I generally agree with the findings and plan except for any additions/exceptions noted. 75-year-old male with past medical history of dyslipidemia, heavy alcohol use back in his 20s quit very long time ago, half a pack a day smoker again in his 20s presented to hospital with complaints of epigastric abdominal pain going on since last 3 days associated with nonbilious nonbloody vomit. He denies any history of trauma to the belly. No fever at home. No headache. Denies any history of gallstones or any surgery in the belly. Patient had CT abdomen which showed acute pancreatitis possibility of formation of abscess. No pleural effusion Constitutional: In distress secondary to pain HEENT: EOMI, PERRLA, hard to hear Respiratory system: Decreased antibiotic, no wheeze, rhonchi, mild crackles bilateral lower lobe CVS: S1-S2 positive, no murmurs or gallops, tachycardia Abdomen: Soft, diffuse abdominal tenderness more in the epigastrium, no rebound, decreased bowel sounds, obese Extremities: +2 pulses bilaterally radialis/ dorsalis pedis, no cyanosis, no edema, cold extremities Neuro: Awake alert oriented x3 Psych: Normal mood and affect G/U: No Chao --Prophylaxis VTE: Heparin GI: None Lines: Peripheral Diet: N.p.o. Plan: ESR 16 CRP 14.5, procalcitonin 1.54, nasal MRSA negative COVID-19 PCR negative EKG: Sinus tachycardia, normal axis, no ST-T wave changes Give aggressive IV fluids to 50 mL an hour for at least 3-4 L. Reassess patient status at that time. We will go down lower after that. Pain medication [id number]. Given the patient's possibility of necrotizing pancreatitis and formation of abscess I will give the patient meropenem for at least 48 hours. [place] likely prerenal. Follow-up urine lites Monitor BUNs/creatinine, avoid nephrotoxic medications Stick in and out. I will get the Chao catheter placed into local intra-abdominal pressure. We need to make sure we are not developing compartment syndrome in patients with severe pancreatitis Transaminitis Could be secondary to pancreatitis I would order hepatitis profile. Follow-up right upper quadrant ultrasound, no gallstones appreciated on the CT chest Incentive spirometry. Patient's biSAp score is 3, [place] score was 13 both of which shows mortality approximately 15-20% I have personally spent 66 minutes of critical care time in the direct management of this patient. This is a life/limb threatening event. This includes time spent evaluating patient, direct bedside care, chart review, placing orders, interpretation of diagnostic studies, discussion with consultants, patient, and/or family members regarding treatment decisions, as well as other required patient management activities. This time is exclusive of all separately billable procedures, and teaching time and separate from and in addition to any other critical care service time. History of Present Illness Reason for Consultation: necrotizing pancreatitis Requesting Physician: Dr. Reed Attending Physician: Dr. Umanzor History of Present Illness Leeroy Lee is a 75 y/o male w/ PMHx of BTH, HTN, HLD, GERD, neuropathy, and chronic low back pain who presents nausea, vomiting, and epigastric abdominal pain since 2 days ago. He had multiple episodes of NBNB emesis 2 nights ago continued into most of day yesterday, since stopped. His intermittent epigastric abdominal pain worsened in severity, described as an ache. Patient has had no appetite for these 3 days and has skipped his home medications as a result due to lack of PO intake. He has not taken any medications for the pain at home. Denies fevers or chills. No chest pain and no resting shortness of breath, but he has been more dyspneic on exertion than usual. Distant tobacco (0.5 PPD x many years) and distant alcohol use (heavier use in his 20s). No family history of IBD, Crohn's, or pancreatic disease. Patient has not had abdominal surgeries and denies prior history of pancreatitis, gallstones or hepatitis. No recent changes in his health or medications. Currently, the pain is much better after narcotic medications, and is a 2/10 at rest, 10/10 w/ movement or actions such as coughing. ED course: WBC to 40, Lactate 2.6->3.0. AST 280 ALT 631. Lipase 4141. Zosyn and IV fluids. fentanyl 75mcg x1 and 1.5mg of Dilaudid. CT chest neg for dissection. CT abd w/ acute pancreatitis and necrosis and possible abscess. Allergies Allergy/AdvReac Type Severity Reaction Status Date / Time No Known Allergies Allergy Verified 06/15/21 10:29 Home Medications Medication Instructions Recorded Confirmed Type atorvastatin 20 mg tablet (Lipitor) 20 mg PO HS 10/28/20 06/15/21 History famotidine 20 mg tablet (Pepcid) 20 mg PO BID 10/28/20 06/15/21 History lisinopril 20 1 tab PO QAM 10/28/20 06/15/21 History mg-hydrochlorothiazide 25 mg tablet (Zestoretic) omega-3 fatty acids-fish oil 340 1 cap PO QAM 10/28/20 06/15/21 History mg-1,000 mg capsule (Fish Oil) cholecalciferol (vitamin D3) 50 50 mcg PO QAM 06/15/21 06/15/21 History mcg (2,000 unit) capsule (Vitamin D3) finasteride 5 mg tablet (Proscar) 5 mg PO QAM 06/15/21 06/15/21 History potassium citrate 10 mEq (1,080 10 meq PO BID 06/15/21 06/15/21 History mg) tablet,extended release (Urocit-K 10) tamsulosin 0.4 mg capsule (Flomax) 0.4 mg PO HS 06/15/21 06/15/21 History Patient History Medical History BPH (benign prostatic hyperplasia) GERD (gastroesophageal reflux disease) Hyperlipidemia Hypertension Surgical History H/O: vasectomy Social History Smoking Status: Former smoker Hx Alcohol Use: Yes Alcohol type: beer Hx Substance Use: No Preferred Language: Hebrew Communication Ability: Effective [employer]er Required: No Beliefs That Will Affect Care: None Current Living Situation: Family Other Information That Helps Us Care for You: No Feels Safe at Home: Yes Safety Concerns: Feels Safe At This Time Assistive Devices: Cane, Glasses, Hearing Aid - Left and Hearing Aid - Right Immunizations: Patient has not had covid immunization. Review of Systems Review of Systems: Constitutional: Denies fever, chills, ENT: Denies sore throat, sinus pain. Cardiovascular: Denies chest pain, chest pressure, palpitations, extremity swelling Respiratory: Denies shortness of breath, cough Gastrointestinal: Denies nausea, vomiting, constipation, diarrhea. + epigastric abdominal pain Genitourinary: Denies urinary symptoms including dysuria, hematuria Musculoskeletal: Denies muscle aches/pain, joint aches/pain. + chronic low back pain. Neurological: Denies headache. + L foot paresthesia, chronic. + bilat radicular symptoms, mild, chronic Physical Exam Physical Exam: General: A&Ox4. NAD. Cooperative. He appeared comfortable while at rest (s/p IV fentanyl and Dilaudid in ED) in the ED. He is moaning in pain after movement (straight leg raise test). Appears uncomfortable from pain during reassessment after arrived in ICU. HEENT: Atraumatic, normocephalic. EOMI. PERRL. No oropharyngeal erythema. + hard colored nodule at of mouth. Pulm: Auscultated anteriorly and laterally because exam limited by severe pain with movement. -wheezes. +transmitted neck sounds. Symmetrical chest rise. No respiratory distress. Cardiac: RRR, -mrg. Radial pulses intact and symmetrical. No LE edema. Abdominal: Soft, mild fullness. TTP at epigastrium. Mild discomfort w/ palpation of other regions of abdomen. No rigidity or involuntary guarding. No rebound. Back: Bilateral mild discomfort to palpation of costovertebral angles. Neuro: Moving all extremities. Skin: No rashes. Results & Data Results & Data ([facility]) Vital Signs (Past 12 Hours) Vital Signs Temp Pulse Pulse Resp BP BP Pulse Ox 06/15/21 13:30 105 H 18 142/88 H 91 06/15/21 12:00 107 H 20 132/81 91 06/15/21 10:32 36.9 C 98 H 20 169/87 H 96 06/15/21 08:36 36.9 C 117 H 20 119/79 96 16:30: 171/109. pulse 125. RR 27. 06/15/21 16:20 06/15/21 16:20 Laboratory Results Abnormal lab results 06/15/21 06/15/21 06/15/21 Range/Units 08:53 08:53 08:53 WBC 39.22 H* (4.8-10.8) K/uL POC Hgb (14.0-18.0) g/dl POC Hct (42-52) % Neut # (Auto) 34.66 H (1.4-6.5) K/uL Lymph # (Auto) 0.82 L (1.2-3.4) K/uL [place] # (Auto) 3.46 H (0.11-0.59) K/uL Immature Gran # (Auto) 0.27 H (0.00-0.02) K/uL PT 13.0 H (9.0-12.0) Seconds INR 1.3 H (0.9-1.1) POC Sodium (135-144) mmol/L Sodium 133 L (136-145) mmol/L POC Chloride (101-112) mmol/L POC Total CO2 (24-31) mmol/L POC BUN (7-18) mg/dl BUN 40 H (7-18) mg/dl Creatinine 1.89 H (0.6-1.4) mg/dl POC Creatinine (0.6-1.3) mg/dl BUN/Creatinine Ratio 20.9 H (10-20) Glucose 141 H (70-99) mg/dl POC Glucose (other) (70-99) mg/dl Lactate (0.4-2.0) mmol/L POC Ioniz Calcium [place] (1.12-1.32) mmol/l Magnesium 1.5 L (1.8-2.4) mg/dl Total Bilirubin 2.6 H (0.2-1) mg/dl Direct Bilirubin 1.0 H (0-0.2) mg/dl AST 286 H (15-37) U/L ALT 631 H (12-78) U/L Alkaline Phosphatase 143 H (45-117) U/L Lipase 4141 H (73-393) U/L Ur Specific [place] (1.000-1.030) Urine Protein (Negative) Urine Ketones (Negative) Urine Blood (Negative) Urine WBC (Auto) (0-5) /hpf U Epithel Cells (Auto) (0-5) /lpf Urine Mucus (None Prsent) 06/15/21 06/15/21 06/15/21 Range/Units 09:01 09:41 12:20 WBC (4.8-10.8) K/uL POC Hgb 18.7 H (14.0-18.0) g/dl POC Hct 55 H (42-52) % Neut # (Auto) (1.4-6.5) K/uL Lymph # (Auto) (1.2-3.4) K/uL [place] # (Auto) (0.11-0.59) K/uL Immature Gran # (Auto) (0.00-0.02) K/uL PT (9.0-12.0) Seconds INR (0.9-1.1) POC Sodium 134 L (135-144) mmol/L Sodium (136-145) mmol/L POC Chloride 96 L (101-112) mmol/L POC Total CO2 22 L (24-31) mmol/L POC BUN 40 H (7-18) mg/dl BUN (7-18) mg/dl Creatinine (0.6-1.4) mg/dl POC Creatinine 1.7 H (0.6-1.3) mg/dl BUN/Creatinine Ratio (10-20) Glucose (70-99) mg/dl POC Glucose (other) 148 H (70-99) mg/dl Lactate 2.6 H* 3.0 H* (0.4-2.0) mmol/L POC Ioniz Calcium [place] 1.02 L (1.12-1.32) mmol/l Magnesium (1.8-2.4) mg/dl Total Bilirubin (0.2-1) mg/dl Direct Bilirubin (0-0.2) mg/dl AST (15-37) U/L ALT (12-78) U/L Alkaline Phosphatase (45-117) U/L Lipase (73-393) U/L Ur Specific [place] (1.000-1.030) Urine Protein (Negative) Urine Ketones (Negative) Urine Blood (Negative) Urine WBC (Auto) (0-5) /hpf U Epithel Cells (Auto) (0-5) /lpf Urine Mucus (None Prsent) 06/15/21 Range/Units 14:01 WBC (4.8-10.8) K/uL POC Hgb (14.0-18.0) g/dl POC Hct (42-52) % Neut # (Auto) (1.4-6.5) K/uL Lymph # (Auto) (1.2-3.4) K/uL [place] # (Auto) (0.11-0.59) K/uL Immature Gran # (Auto) (0.00-0.02) K/uL PT (9.0-12.0) Seconds INR (0.9-1.1) POC Sodium (135-144) mmol/L Sodium (136-145) mmol/L POC Chloride (101-112) mmol/L POC Total CO2 (24-31) mmol/L POC BUN (7-18) mg/dl BUN (7-18) mg/dl Creatinine (0.6-1.4) mg/dl POC Creatinine (0.6-1.3) mg/dl BUN/Creatinine Ratio (10-20) Glucose (70-99) mg/dl POC Glucose (other) (70-99) mg/dl Lactate (0.4-2.0) mmol/L POC Ioniz Calcium [place] (1.12-1.32) mmol/l Magnesium (1.8-2.4) mg/dl Total Bilirubin (0.2-1) mg/dl Direct Bilirubin (0-0.2) mg/dl AST (15-37) U/L ALT (12-78) U/L Alkaline Phosphatase (45-117) U/L Lipase (73-393) U/L Ur Specific [place] > 1.045 H (1.000-1.030) Urine Protein Trace H (Negative) Urine Ketones Trace H (Negative) Urine Blood Trace H (Negative) Urine WBC (Auto) 10-30 H (0-5) /hpf U Epithel Cells (Auto) >30 H (0-5) /lpf Urine Mucus Present A (None Prsent) Diagnostic Findings Abdomen/Pelvis CTA 06/15/21 08:45 CT angio abd pelvis wo/w con IMPRESSION: 1. Acute pancreatitis. Possible pancreatic necrosis and abscess/cyst formation. Short-term follow-up is recommended. Report will be sent to emergency Department. 2. Large duodenal diverticulum. Mucosal enhancement and wall thickening of proximal duodenum, likely reactive due to surrounding inflammatory changes from acute pancreatitis. 3. Diverticulosis of sigmoid colon without evidence of diverticulitis. 4. Normal abdominal aorta without aneurysmal dilatation or dissection. 5. The rest of findings as above. FINDINGS (pancreas only): Evaluation of the pancreas shows 3.3 cm area of decreased opacification within pancreatic body, extensive peripancreatic fat stranding and 2.6 x 2.2 cm fluid collection at superior aspect of the pancreatic body concerning for acute pancreatitis which is complicated by focal area of necrosis and possible abscess formation. Scattered areas of fluid collection is seen extending from the pancreas to the lower abdomen and right and left paracolic gutter. Chest CTA 06/15/21 08:45 IMPRESSION: 1. Mild wall thickening and surrounding fat stranding within distal esophagus which might represent esophagitis versus other etiology. Please correlate above- mentioned findings with GI evaluation. 2. Normal appearance of aorta without aneurysmal dilatation or dissection. 3. Atelectasis within lingula and left lower lobe. Possible bronchitis. Trace left pleural effusion. 4. Atherosclerosis. 5. The rest of findings as above. Chest X-Ray 06/15/21 08:45 XR chest 1V portable IMPRESSION: 1. Atelectasis or infiltrate at the left base. Possible small left pleural effusion. ECG Additional Comments: Per my interpretation: Sinus tach 113. Normal axis and intervals. No acute ST-T changes. +poor R wave progression. Resident Activity Tracking Resident Involvement: Resident Care Provided Care Provided: Adult [facility] Medicine
[2021-06-15] MEDS ORDERED: MEROPENEM CONSULT ACITVE PRN ×2 (14:22→14:35)
[2021-06-15 14:33] LABS: Appearance Urine Clear (Clear); Bacteria Urine Automated Negative (Negative); Bilirubin Urine Negative (Negative); Blood Urine Trace (Negative); Color Urine Dark Yellow; Epithelial Cell Urine Auto >30 /lpf (0-5); Glucose Urine UA Negative (Negative); Ketones Urine Trace (Negative); Leukocyte Esterase Urine Negative (Negative); Nitrite Urine Negative (Negative); Protein Urine Trace (Negative); RBC Urine Automated 0-4 /hpf (0-4); Specific Gravity Urine > 1.045 (1.000-1.030); Urobilinogen Urine Negative (Negative); pH Urine 5.5 (4.5-7.5)
[2021-06-15 14:45] LABS: Mucus Urine Present (None Prsent)
[2021-06-15] MEDS ORDERED: ICU PROTOCOL FOR HYPERGLYCEMIA PRN (15:44)
[2021-06-15] MEDS ORDERED: HYDROmorphone INJ 0.5 MG/0.5 ML SYR IV PRN (15:44)
[2021-06-15] MEDS: LACTATED RINGER'S 1,000 ML IV SCH ×3 (15:45→23:35)
[2021-06-15] MEDS ORDERED: HEPARIN SOD 5,000 UNIT/0.5 ML VIAL SQ STA (16:05)
[2021-06-15 16:41] LABS: INR 1.3 (0.9-1.1); Prothrombin Time 13.1 Seconds (9.0-12.0)
[2021-06-15 16:45] LABS: Hematocrit (blood only) 45.4 % (42-52); Hemoglobin 15.6 g/dL (14.0-18.0); Mean Corpuscular Hemoglobin 31.9 pg (25-34); Mean Corpuscular Hgb Conc 34.4 g/dL (32-36); Mean Corpuscular Volume 92.8 fL (80-100); Mean Platelet Volume 9.4 fL (7.4-10.4); Platelet Count 237 K/uL (130-400); RDW Coefficient of Variation 13.7 % (11.5-14.5); RDW Standard Deviation 46.8 fL (36.4-46.3); Red Blood Count 4.89 M/uL (4.7-6.1); White Blood Count 34.38 K/uL (4.8-10.8)
[2021-06-15 17:04] LABS: Albumin Level 3.1 gm/dl (3.4-5.0); C Reactive Protein 14.5 mg/dl (0-0.29); Calcium 7.2 mg/dl (8.5-10.1); Creatinine Clr Calc Pharmacy 46.1 ml/min; Est GFR (African American) 47.4 ml/min; Est GFR (Non-African American) 40.9 ml/min; Globulin 3.1 gm/dl (2.5-4.0); Magnesium 1.3 mg/dl (1.8-2.4); Phosphorus 3.8 mg/dl (2.5-4.9); Potassium 4.3 mmol/L (3.5-5.1); Total Protein 6.2 gm/dl (6.4-8.2)
[2021-06-15] MEDS: MEROPENEM 500 MG in SYRINGE 0 ML IV SCH (17:18)
[2021-06-15 17:33] LABS: Appearance Urine Cloudy (Clear); Bacteria Urine Automated Negative (Negative); Bilirubin Urine Negative (Negative); Blood Urine 3+ (Negative); Color Urine Orange; Epithelial Cell Urine Auto >30 /lpf (0-5); Glucose Urine UA Negative (Negative); Ketones Urine Trace (Negative); Leukocyte Esterase Urine 1+ (Negative); Nitrite Urine Negative (Negative); Protein Urine Trace (Negative); RBC Urine Automated >30 /hpf (0-4); Specific Gravity Urine 1.037 (1.000-1.030); Urobilinogen Urine Negative (Negative)
[2021-06-15 17:45] LABS: Bilirubin Direct 0.8 mg/dl (0-0.2)
[2021-06-15 17:52] LABS: Chloride Random Urine < 10 mmol/L; Potassium Random Urine 84.9 mmol/L; Sodium Random Urine < 5 mmol/L
[2021-06-15] MEDS: MAGNESIUM SULFATE / D5W 1 GM/100 ML BAG IV SCH ×2 (17:53→19:43)
--- NOTE | 2021-06-15 18:15 | Billing Data ---
Date of Service June 15, 2021 Coding Level of Care Code Critical Care 1st 30-74 mins Time Spent (min) 66
--- NOTE | 2021-06-15 18:29 | Ultrasound Report ---
US liver CLINICAL HISTORY: 75 years-old Male presenting with r/o gallstone. patient has pancreatitis. TECHNIQUE: Real-time grayscale ultrasound imaging of the upper abdomen was performed for a focused ev aluation at the site of clinical concern. COMPARISON: None. Correlation is made with CT of the abdomen and pelvis performed earlier today. FINDINGS: Pancreas is not well seen due to overlying bowel gas. Liver is normal in size with heterogeneous echogenicity and slightly coarsening of echotexture of its parenchyma. Minimal ascites is seen. Gallbladder is fluid-filled without definite evidence of intraluminal calculi and multiple avascular echogenic foci attached to mildly thickening gallbladder wall which could represent polyps or tumef active sludge. Isaacs's sign cannot be assessed due to pain medications. Common bile duct is nondilated measuring 0.4 cm in diameter. Right kidney is measuring 11.3 cm in length without evidence of hydronephrosis. IMPRESSION: 1. No gallstones seen. Mild diffuse thickening of gallbladder wall which could be due to ascites/adrian ma or cholecystitis. Small polyps versus tumefactive sludge. 2. Possible hepatic steatosis. 3. Pancreas is not visualized. 4. Mild ascites. ACT 112: Negative or not required by law. Electronically signed by: Shandra Pérez DO 06/15/2021 6:28 PM
[2021-06-15] MEDS: HYDROmorphone INJ 1 MG/ML SYRINGE IV PRN (21:17)
[2021-06-15] MEDS: ATORVASTATIN 20 MG TAB PO SCH (21:24)
[2021-06-15] MEDS: FAMOTIDINE 20 MG TAB PO SCH (21:24)
[2021-06-15] MEDS: TAMSULOSIN HCL 0.4 MG CAP PO SCH (21:25)
[2021-06-16] MEDS: MEROPENEM 500 MG in SYRINGE 0 ML IV SCH ×4 (00:01→19:42)
[2021-06-16] MEDS: HYDROmorphone INJ 1 MG/ML SYRINGE IV PRN ×9 (00:02→23:21)
[2021-06-16] MEDS: LACTATED RINGER'S 1,000 ML IV SCH (05:26)
[2021-06-16] MEDS: HEPARIN SOD 5,000 UNIT/0.5 ML VIAL SQ SCH ×2 (05:26→17:32)
[2021-06-16 05:35] LABS: Hematocrit (blood only) 42.1 % (42-52); Hemoglobin 14.2 g/dL (14.0-18.0); Mean Corpuscular Hemoglobin 31.6 pg (25-34); Mean Corpuscular Hgb Conc 33.7 g/dL (32-36); Mean Corpuscular Volume 93.8 fL (80-100); Mean Platelet Volume 9.2 fL (7.4-10.4); Platelet Count 211 K/uL (130-400); RDW Coefficient of Variation 13.9 % (11.5-14.5); RDW Standard Deviation 47.6 fL (36.4-46.3); Red Blood Count 4.49 M/uL (4.7-6.1); White Blood Count 28.24 K/uL (4.8-10.8)
[2021-06-16 05:43] LABS: INR 1.2 (0.9-1.1); Prothrombin Time 12.3 Seconds (9.0-12.0)
[2021-06-16] MEDS ORDERED: HEPARIN SOD 5,000 UNIT/0.5 ML VIAL SQ SCH (06:00)
[2021-06-16 06:02] LABS: Albumin Level 2.9 gm/dl (3.4-5.0); BUN Creatinine Ratio 30.9 (10-20); Calcium 7.4 mg/dl (8.5-10.1); Creatinine Clr Calc Pharmacy 59.6 ml/min; Est GFR (African American) 64.7 ml/min; Est GFR (Non-African American) 55.8 ml/min; Magnesium 2.1 mg/dl (1.8-2.4)
[2021-06-16 06:12] LABS: Albumin Globulin Ratio 0.9 (0.9-2); Bilirubin,Total 1.6 mg/dl (0.2-1); C Reactive Protein 18.7 mg/dl (0-0.29); Globulin 3.1 gm/dl (2.5-4.0)
[2021-06-16 06:15] LABS: Basophils # (auto) 0.01 K/uL (0-0.2); Immature Granulocytes # (auto) 0.29 K/uL (0.00-0.02); Lymphocytes # (auto) 0.63 K/uL (1.2-3.4); Lymphocytes % (auto) 2.2 %; Monocytes # (auto) 2.37 K/uL (0.11-0.59); Monocytes % (auto) 8.4 %; Neutrophils # (auto) 24.94 K/uL (1.4-6.5); Neutrophils % (auto) 88.4 %
--- NOTE | 2021-06-16 07:23 | Electrocardiogram Report ---
Test Reason : Blood Pressure : / mmHG Vent. Rate : 113 BPM Atrial Rate : 113 BPM P-R Int : 158 ms QRS Dur : 080 ms QT Int : 330 ms P-R-T Axes : 047 063 059 degrees QTc Int : 452 ms Sinus tachycardia Otherwise normal ECG No previous ECGs available Confirmed by Romulo Maldonado ([id number]) on 06/16/2021 7:23:08 AM Referred By: REFERRED SELF Confirmed By:Corby Maldonado
[2021-06-16] MEDS: FAMOTIDINE 20 MG TAB PO SCH ×2 (08:03→20:41)
[2021-06-16] MEDS: FINASTERIDE 5 MG TAB PO SCH (08:03)
--- NOTE | 2021-06-16 08:41 | Critical Care Progress Note ---
Date of Service June 16, 2021 Assessment & Plan (1) Acute necrotizing pancreatitis: Plan: Reason Critically Ill: 75 y/o male admitted for acute pancreatitis. He was t ransferred to the ICU because of pancreatic necrosis w/ possible abscess and septic presentation w/ severe leukocytosis and climbing lactate. Acute necrotizing pancreatitis with severe sepsis - [place] (13, 15% nonoperative mortality). BISAP (3, >15% mortality). [place] (3 points at admission, severe) - ESR 16 CRP 14.5, procalcitonin 1.54, nasal MRSA negative, COVID-19 PCR negative - tbili (2.6) and transaminitis (AST 286, ALT 631), hepatocellular>cholestatic - etiologies considered: gallstone, HCTZ, etoh (distant hx use), tobacco (distant heavy use), HLD (will order panel), autoimmune (denies family hx), trauma (denies), infection (denies hx hepatitis), obstruction (denies celiac, IBD). - CT abd showing possible pancreatic necrosis (3.3cm area at body) and abscess/cyst (2.6x2.2cm) formation. Wall thickening of proximal duodenum likely from surrounding inflammation. No radiopaque gallstones noted. -Continue monitoring intra-abdominal pressures - GI on board Neuro - [facility] ICU: negative - analgesia: IV Dilaudid 1mg q2hprn Cardiac - - cardiac monitoring for sepsis Hypertension - hold home lisinopril-hctz - exacerbated by pain Respiratory - -O2 supplementation to keep oxygen saturation greater than 90 GI - - see above Transaminitis -Trending down -Continue to monitor RENAL/LYTES - - Acute kidney injury - Cr 1.89, baseline unknown --> improving - likely prerenal, improving -Strict ins and outs -Avoid nephrotoxic medication - - chao, monitor Is/Os ENDO - - no listed hx of diabetes - check A1C, more prone to gallstones if diabetic HEME - - stable H/H, follow CBC ID - see above - urine and blood cultures pending --Prophylaxis VTE: Heparin GI: Pepcid Lines: Peripheral Diet: Start clear liquid Plan: In/out: +6.3 L, urine output 775 Intra-abdominal pressure was 15 in the morning. Continue with meropenem given the necrotic nature of the pancreatitis. Right upper quadrant ultrasound shows sludge in the gallbladder, questionable polyp. Nonspecific continue to monitor. We will decrease the IV fluids to 50 mL/h. Clear liquid diet and advance as tolerated Patient blood pressure is on the higher side. Will start amlodipine 5 mg if persistently stays high. Patient is requiring 2 L oxygen which is new compared to yesterday. We will consider Lasix if the patient gets in respiratory distress. Continue with pain management with Dilaudid. Follow-up hepatitis profile Incentive spirometry. Case was discussed with Dr. Hale I have personally spent 37 minutes of critical care time in the direct manag ement of this patient. This is a life/limb threatening event. This includes time spent evaluating patient, direct bedside care, chart review, placing orders, interpretation of diagnostic studies, discussion with consultants, patient, and/or family members regarding treatment decisions, as well as other required patient management activities. This time is exclusive of all separately billable procedures, and teaching time and separate from and in addition to any other critical care service time. (2) Acute renal insufficiency: (3) BPH (benign prostatic hyperplasia): (4) Admitted to intensive care unit: (5) Sepsis: (6) Hyperlipidemia: (7) Hypertension: (8) GERD (gastroesophageal reflux disease): (9) Hyponatremia: Admission and Anticipated Discharge Date Admission Date: June 15, 2021 Subjective Patient seen and examined at bedside. No acute distress. Patient is feeling better than yesterday. He still complains of some burping. Denies any nausea. Abdominal pain is controlled with pain medication Denies any chest pain, no shortness of breath No dizziness. Has been afebrile. Review of Systems Review of Systems: All systems reviewed & are unremarkable except as noted in Subjective Physical Exam Physical Exam: Constitutional: No acute distress HEENT: EOMI, PERRLA, hard to hear Respiratory system: Decreased antibiotic, no wheeze, rhonchi, positive crackles bilateral lower lobe CVS: S1-S2 positive, no murmurs or gallops Abdomen: Soft, minimal epigastric tenderness, no rebound, decreased bowel sounds, obese Extremities: +2 pulses bilaterally radialis/ dorsalis pedis, no cyanosis, no edema Neuro: Awake alert oriented x3 Psych: Normal mood and affect G/U: Positive Chao Skin: no rashes, warm and dry Lymphatic: no cervical or axillary lymphadenopathy Results & Data Results & Data ([facility]) Vital Signs (Past 12 Hours) Vital Signs Temp Pulse Resp BP Pulse Ox 06/16/21 05:13 102 H 20 166/111 H 97 06/16/21 04:30 101 H 20 161/117 H 96 06/16/21 04:00 37.4 C 06/16/21 03:31 108 H 16 176/95 H 95 06/16/21 02:30 107 H 21 155/94 H 96 06/16/21 01:30 106 H 17 156/101 H 93 06/16/21 00:30 106 H 13 111/90 95 06/16/21 00:00 37.1 C 106 H 06/15/21 23:30 106 H 15 122/95 95 06/15/21 22:30 104 H 14 125/88 94 06/15/21 21:30 108 H 17 104/84 95 06/15/21 21:28 112 H 19 143/90 H 97 06/16/21 05:23 06/16/21 05:23 Coding Level of Care Code Critical Care 1st 30-74 mins Diagnoses Acute necrotizing pancreatitis K85.91 Acute renal insufficiency N28.9 BPH (benign prostatic hyperplasia) N40.0 Admitted to intensive care unit Z78.9 Sepsis A41.9 Hyperlipidemia E78.5 Hypertension I10 GERD (gastroesophageal reflux disease) K21.9 Hyponatremia E87.1 Time Spent (min) 37
--- NOTE | 2021-06-16 09:33 | Gastrointestinal Consultation ---
Date of Consultation June 16, 2021 Assessment & Plan (1) Acute necrotizing pancreatitis: (2) Sepsis: BISAP score of 3, >15% mortality. appears to be infected necrosis, he is responding well to antbiotics and IVFs, lactate has normalized. Recs: --advance diet to clears today; then would advance to low residue diet as tolerated. --if unable to tolerate, take po diet after 48 hours of admission, would consider enteral feeding via NG tube with high protein, low fat, semi-elemental feeding formulas (eg, Peptamen AF) --continue meropenem alone for infected pancreatic necrosis, will likely need 4 weeks of antibiotics --obtain MRI pancreas protocol in the next day or two, then would repeat it in 4 weeks --after 4 weeks can reassess for the need for potential axios stent and necrosectomy, currently no plans for endoscopic intervention in this acute stage --supportive care, pain control -biliary sludge is noted on imaging, tbili 2.6, would continue to trend LFTs daily Thank you for allowing me to participate in the care of this patient History of Present Illness Attending Physician: Elise Reed MD History of Present Illness 75yo M with a PMH of HTN, HLD, peripheral neuropathy who presents with worsening abdominal pain x3 days. Endorses diffuse sharp 10/10 abdominal pain that is constant and most painful in epigastric region with radiation to back. Also with some emesis. He was found on imaging to have severe necrotizing pancreatitis with possible abscess, found to be septic as well. Currently he is improving, has been receiving aggressive IV hydration and pain control as well as meropenem for infected panc necrosis. labs reviewed, tachycardic. Allergies Allergy/AdvReac Type Severity Reaction Status Date / Time No Known Allergies Allergy Verified 06/15/21 10:29 Home Medications Medication Instructions Recorded Confirmed Type atorvastatin 20 mg tablet (Lipitor) 20 mg PO HS 10/28/20 06/15/21 History famotidine 20 mg tablet (Pepcid) 20 mg PO BID 10/28/20 06/15/21 History lisinopril 20 1 tab PO QAM 10/28/20 06/15/21 History mg-hydrochlorothiazide 25 mg tablet (Zestoretic) omega-3 fatty acids-fish oil 340 1 cap PO QAM 12/20/20 08/07/21 History mg-1,000 mg capsule (Fish Oil) cholecalciferol (vitamin D3) 50 50 mcg PO QAM 06/15/21 06/15/21 History mcg (2,000 unit) capsule (Vitamin D3) finasteride 5 mg tablet (Proscar) 5 mg PO QAM 06/15/21 06/15/21 History potassium citrate 10 mEq (1,080 10 meq PO BID 06/15/21 06/15/21 History mg) tablet,extended release (Urocit-K 10) tamsulosin 0.4 mg capsule (Flomax) 0.4 mg PO HS 06/15/21 06/15/21 History Patient History Medical History BPH (benign prostatic hyperplasia) GERD (gastroesophageal reflux disease) Hyperlipidemia Hypertension Surgical History H/O: vasectomy Social History Smoking Status: Former smoker Hx Alcohol Use: Yes Alcohol type: beer Hx Substance Use: No Preferred Language: Citizen Of [place] Communication Ability: Effective Student Services Rep Required: No Beliefs That Will Affect Care: None Current Living Situation: Family Other Information That Helps Us Care for You: No Feels Safe at Home: Yes Safety Concerns: Feels Safe At This Time Assistive Devices: Glasses, Hearing Aid - Bilateral and Oxygen - Continuous Review of Systems Constitutional: no fever, no chills and no weight loss Eyes: as per Subjective / HPI Ear, Nose, Mouth, Throat: as per Subjective / HPI Respiratory: no dyspnea and no dyspnea on exertion Cardiovascular: no chest pain and no palpitations Gastrointestinal: as per Subjective / HPI Musculoskeletal: no joint pain and no swelling Integumentary: no rash and no lesions Neurologic: no numbness and no paresthesia Psychiatric: no depression and no anxiety Endocrine: no fatigue Hematologic / Lymphatic: no easy bleeding and no easy bruising Physical Exam Constitutional: WD/WN, vitals as above Eyes: EOM intact bilaterally Neck: normal visual inspection Respiratory: normal respiratory effort, lungs clear to auscultation Cardiovascular: RRR, no murmur, no edema Gastrointestinal (Abdomen): Inspection/Auscultation: abdomen normal to inspection; abdomen not distended Percussion/Palpation: + abdomen tender (diffuse mild-moderate) and abdomen soft; no hepatosplenomegaly Musculoskeletal: Extremities: no cyanosis Gait: normal gait Skin: no rashes, warm and dry Neurologic: moves all extremities Psychiatric: A+Ox3, euthymic affect Results & Data ([facility]) Vital Signs (Past 12 Hours) Vital Signs Temp Pulse Resp BP Pulse Ox 06/16/21 08:30 105 H 19 149/89 H 97 06/16/21 07:30 101 H 20 129/82 92 06/16/21 05:13 102 H 20 166/111 H 97 06/16/21 04:30 101 H 20 161/117 H 96 06/16/21 04:00 37.4 C 06/16/21 03:31 108 H 16 176/95 H 95 06/16/21 02:30 107 H 21 155/94 H 96 06/16/21 01:30 106 H 17 156/101 H 93 06/16/21 00:30 106 H 13 111/90 95 06/16/21 00:00 37.1 C 106 H 06/15/21 23:30 106 H 15 122/95 95 06/15/21 22:30 104 H 14 125/88 94 06/15/21 21:30 108 H 17 104/84 95 06/15/21 21:28 112 H 19 143/90 H 97 PG Care Time/CCT Total # of Minutes Spent Total Time Spent with Patient: Total time spent is greater than 50% in coordination of care (as documented) at patient's floor/unit and/or counseling patient: Coding Level of Care Code 53866 Initial Inpt Care Lvl 3 Diagnoses Acute necrotizing pancreatitis K85.91 Sepsis A41.9
--- NOTE | 2021-06-16 13:04 | Hospitalist Progress Note ---
Date of Service June 16, 2021 Assessment & Plan (1) Sepsis: Plan: Secondary to acute necrotizing pancreatitis On admission HR 117, WBC 39, lactate 3.0 CRP and prolactin were elevated too Has been receiving considerable amount of intravenous fluid Has been on intravenous meropenem Signs and symptoms are improving Blood and urine culture have been negative White count is down to 28,000, lactate is normalized with improvement of BUN and creatinine (2) Acute necrotizing pancreatitis: Plan: This is a 75yo M with a PMH of HTN, HLD, peripheral neuropathy who presents with worsening abdominal pain x3 days. CT abd/pelvis with acute pancreatitis. Possible pancreatic necrosis and abscess/cyst formation No history of pancreatitis. Denies tobacco or alcohol use. Ultrasound did not show any gallstones but did show hepatic steatosis and lipid profile is unremarkable ER discussed potential transfer to [place] with Dr. Aldridge who advised that treatment would likely be the same if kept at [facility] Appreciate GI input and recommendation Appreciate videotape editor input and recommendation His condition is a little better Improvement of LFTs, lipase, BUN and creatinine We will continue current management-n.p.o., IV fluids, pain medications as needed and antibiotic Prognosis remains poor Elevated liver enzymes On admission Tbili 2.6, dbili 1, AST 286, ALT 631, alk phos 142, lipase 4,141 Has been improving (3) Acute renal insufficiency: Plan: Unknown renal baseline but Cr 1.89 in setting of sepsis, necrotizing pancreatitis Continue to monitor with daily BMP Creatinine has been normalized to 1.26 as of 06/16/2021 (4) Hypertension: Plan: Home meds include lisinopril- hctz, which we will hold at this point due to potential [place] and dehydration Blood pressure remains on the upper side at 154/94 today (5) Hyperlipidemia: Plan: On statin at home (6) BPH (benign prostatic hyperplasia): Plan: Flomax HS Code status: FULL PCP: [facility] MK Thompson Dispo: Admitted to ICU. Discharge planning ordered Admission and Anticipated Discharge Date Admission Date: June 15, 2021 Subjective 06/16/2021 The patient was seen and examined in ICU He complains to have abdominal distention and ongoing back pain Denies any nausea and or vomiting Bowel has not moved yet Review of Systems Review of Systems: All systems reviewed and are unremarkable except as noted below Gastrointestinal: Abdominal distention with discomfort. Back pain Physical Exam Physical Exam: Lying in bed with acute distress due to abdominal pain and distention Constitutional: well developed, well nourished, + ill appearing and + well hydrated Eyes: PERRL, conjunctivae normal, anicteric sclerae ENMT: external ear and nose normal, oropharynx normal Neck: trachea midline, no thyromegaly Respiratory: normal respiratory effort, lungs clear to auscultation Cardiovascular: Rate/Rhythm: regular rate, regular rhythm and + tachycardic Heart Sounds: normal S1 and normal S2; no murmur Extremities: no edema Gastrointestinal (Abdomen): Inspection/Auscultation: + abdomen distended; + abnormal bowel sounds (Diminished) Percussion/Palpation: + abdomen tender, + guarding and + abdomen firm; abdomen not rigid Musculoskeletal: No acute arthritis in any joint Neurologic: Alert, awake and oriented x3. Generally weak without any focal neuro deficit Lymphatic: no cervical or axillary lymphadenopathy Results & Data Results & Data ([facility]) Vital Signs (Past 12 Hours) Vital Signs Temp Pulse Resp BP Pulse Ox 06/16/21 11:30 104 H 22 154/94 H 97 06/16/21 10:30 104 H 19 150/94 H 97 06/16/21 09:30 104 H 13 114/81 96 06/16/21 09:00 36.9 C 06/16/21 08:30 105 H 19 149/89 H 97 06/16/21 07:30 101 H 20 129/82 92 06/16/21 05:13 102 H 20 166/111 H 97 06/16/21 04:30 101 H 20 161/117 H 96 06/16/21 04:00 37.4 C 06/16/21 03:31 108 H 16 176/95 H 95 06/16/21 02:30 107 H 21 155/94 H 96 06/16/21 01:30 106 H 17 156/101 H 93 Laboratory Results Short CBC 06/15/21 06/16/21 Range/Units 16:20 05:23 WBC 34.38 H* 28.24 H (4.8-10.8) K/uL Hgb 15.6 14.2 (14.0-18.0) g/dL Hct 45.4 42.1 (42-52) % Plt Count 237 211 (130-400) K/uL BMP 06/15/21 06/16/21 16:20 05:23 Sodium 135 L 135 L Potassium 4.3 4.0 Chloride 103 104 Carbon Dioxide 27 27 BUN 38 H 39 H Creatinine 1.63 H 1.26 D Glucose 112 H 110 H Calcium 7.2 L D 7.4 L Liver Function 06/15/21 06/16/21 Range/Units 16:20 05:23 Total Bilirubin 2.0 H 1.6 H (0.2-1) mg/dl Direct Bilirubin 0.8 H (0-0.2) mg/dl AST 162 H 96 H (15-37) U/L ALT 416 H 284 H (12-78) U/L Alkaline Phosphatase 95 76 (45-117) U/L Albumin 3.1 L 2.9 L (3.4-5.0) gm/dl Urine 06/15/21 06/15/21 Range/Units 14:01 17:10 Urine Color Dark Yellow [place] Urine Appearance Clear Cloudy A (Clear) Urine pH 5.5 5.0 (4.5-7.5) Ur Specific V[place] > 1.045 H 1.037 H (1.000-1.030) Urine Protein Trace H Trace H (Negative) Urine Glucose (UA) Negative Negative (Negative) Medications Administered Current Inpatient Medications Atorvastatin Calcium (Atorvastatin 20 Mg Tab) 20 mg PO HS APOLLO Stop: 07/15/21 20:59 Last Admin: 06/15/21 21:24 Dose: 20 mg Documented by: Famotidine (Famotidine 20 Mg Tab) 20 mg PO BID APOLLO Stop: 07/15/21 20:59 Last Admin: 06/16/21 08:03 Dose: 20 mg Documented by: Finasteride (Finasteride 5 Mg Tab) 5 mg PO QAM APOLLO Stop: 07/16/21 08:59 Last Admin: 06/16/21 08:03 Dose: 5 mg Documented by: Heparin Sodium (Porcine) (Heparin Sod 5,000 Unit/0.5 Ml Vial) 5,000 units SQ Q12H APOLLO Stop: 07/16/21 05:59 Last Admin: 06/16/21 05:26 Dose: 5,000 units Documented by: Hydromorphone HCl (Hydromorphone Inj 1 Mg/Ml Syringe) 1 mg IV Q2H PRN PRN Reason: Pain Stop: 06/29/21 16:43 Last Admin: 06/16/21 12:42 Dose: 1 mg Documented by: Lactated Ringer's (Lr) 1,000 mls @ 50 mls/hr IV .Q20H APOLLO Stop: 07/15/21 13:59 Last Infusion: 06/16/21 08:34 Dose: 50 mls/hr Documented by: Meropenem 500 mg/ Syringe 10 mls @ 2 mls/min IV Q6H APOLLO; Protocol Stop: 06/25/21 15:59 Miscellaneous (Icu Protocol For Hyperglycemia) 1 ea N/A PRN PRN; Protocol PRN Reason: Hyperglycemia Protocol Stop: 06/17/21 15:43 Miscellaneous Information (Meropenem Consult Acitve) 1 ea N/A UD PRN PRN Reason: Consult Stop: 07/15/21 14:21 Tamsulosin HCl (Tamsulosin Hcl 0.4 Mg Cap) 0.4 mg PO HS APOLLO Stop: 07/15/21 20:59 Last Admin: 06/15/21 21:25 Dose: 0.4 mg Documented by:
[2021-06-16] MEDS: ATORVASTATIN 20 MG TAB PO SCH (20:41)
[2021-06-16] MEDS: TAMSULOSIN HCL 0.4 MG CAP PO SCH (20:41)
[2021-06-17] MEDS: HYDROmorphone INJ 1 MG/ML SYRINGE IV PRN ×4 (01:38→23:11)
[2021-06-17] MEDS: MEROPENEM 500 MG in SYRINGE 0 ML IV SCH ×4 (01:38→21:06)
[2021-06-17 04:41] LABS: Hematocrit (blood only) 35.8 % (42-52); Mean Corpuscular Hgb Conc 33.5 g/dL (32-36); Mean Corpuscular Volume 92.5 fL (80-100); Mean Platelet Volume 9.3 fL (7.4-10.4); Platelet Count 182 K/uL (130-400); RDW Coefficient of Variation 13.7 % (11.5-14.5); RDW Standard Deviation 46.8 fL (36.4-46.3); Red Blood Count 3.87 M/uL (4.7-6.1); White Blood Count 18.72 K/uL (4.8-10.8)
[2021-06-17 04:49] LABS: INR 1.1 (0.9-1.1); Prothrombin Time 11.2 Seconds (9.0-12.0)
[2021-06-17] MEDS: HEPARIN SOD 5,000 UNIT/0.5 ML VIAL SQ SCH ×2 (05:01→17:15)
[2021-06-17 05:02] LABS: Basophils # (auto) 0.01 K/uL (0-0.2); Basophils % (auto) 0.1 %; Eosinophils # (auto) 0.04 K/uL (0-0.5); Eosinophils % (auto) 0.2 %; Immature Granulocytes # (auto) 0.11 K/uL (0.00-0.02); Immature Granulocytes % (auto) 0.6 %; Lymphocytes # (auto) 0.96 K/uL (1.2-3.4); Lymphocytes % (auto) 5.1 %; Monocytes # (auto) 1.48 K/uL (0.11-0.59); Monocytes % (auto) 7.9 %; Neutrophils # (auto) 16.12 K/uL (1.4-6.5); Neutrophils % (auto) 86.1 %; RBC Morphology Unremarkable
[2021-06-17 05:05] LABS: Albumin Level 2.6 gm/dl (3.4-5.0); BUN Creatinine Ratio 36.8 (10-20); Calcium 7.6 mg/dl (8.5-10.1); Creatinine Clr Calc Pharmacy 81.6 ml/min; Est GFR (African American) 94.6 ml/min; Est GFR (Non-African American) 81.6 ml/min; Magnesium 2.4 mg/dl (1.8-2.4); Potassium 3.9 mmol/L (3.5-5.1)
[2021-06-17 05:17] LABS: Bilirubin Direct 0.6 mg/dl (0-0.2); Bilirubin,Total 1.4 mg/dl (0.2-1); Phosphorus 1.7 mg/dl (2.5-4.9); Total Protein 5.8 gm/dl (6.4-8.2)
[2021-06-17] MEDS ORDERED: POTASSIUM PHOS 3 MMOL/1 ML INFUSION IV STA (06:26)
[2021-06-17] MEDS ORDERED: POTASSIUM PHOSPHATE 21 MMOL in SODIUM CHLORIDE 0.9% 500 ML IV ONE (06:45)
[2021-06-17 07:44] LABS: Estimated Average Glucose 131 mg/dl; Hemoglobin A1C 6.2 % (4.5-5.6)
[2021-06-17 09:14] LABS: Hepatitis B Surf Ag Rflx Conf Neg (Neg)
[2021-06-17 09:42] LABS: Hepatitis C IgG 13Yrs+Old_Rflx Neg (Neg)
--- NOTE | 2021-06-17 10:06 | Critical Care Progress Note ---
Date of Service June 17, 2021 Assessment & Plan (1) Acute necrotizing pancreatitis: Plan: Reason Critically Ill: 75 y/o male admitted for acute pancreatitis. He was transferred to the ICU because of pancreatic necrosis w/ possible abscess and septic presentation. Overall, he is stable and improving. Acute necrotizing pancreatitis with severe sepsis, improving - EMMONAK II (13, 15% nonoperative mortality). BISAP (3, >15% mortality) - At admission, ESR 16 CRP 14.5, procalcitonin 1.54, nasal MRSA negative, COVID-19 PCR negative - tbili (2.6) and transaminitis (AST 286, ALT 631), hepatocellular>cholestatic - etiologies considered: gallstone, HCTZ, etoh (distant hx use), tobacco (distant heavy use), HLD (will order panel), autoimmune (denies family hx), trauma (denies), infection (denies hx hepatitis), obstruction (denies celiac, IBD). - CT abd showing possible pancreatic necrosis (3.3cm area at body) and abscess/cyst (2.6x2.2cm) formation. Wall thickening of proximal duodenum likely from surrounding inflammation. No radiopaque gallstones noted. - liver US: No gallstones. Mild diffuse thickening of gallbladder wall which could be due to ascites/edema or cholecystitis. Small polyps versus tumefactive sludge. Possible hepatic steatosis. Mild ascites. - overall w/ symptoms/pain improvement and downtrending wbc and transaminases. - uptrending crp noted. 14.5->18.5->22 Neuro - CAM ICU: negative - analgesia: IV Dilaudid 1mg q2hprn changed to q4hprn chronic low back pain - s/p injury in many years ago - flaring up today. ordered Voltaren gel - deferred Tylenol given transaminitis Cardiac - - cardiac monitoring for sepsis Hypertension, resolved - hold home lisinopril-hctz - exacerbated by pain Respiratory - - O2 supplementation to keep oxygen saturation greater than 90 - continue incentive spirometry GI - - see above Transaminitis and elevated bilirubin - Trending down - Continue to monitor RENAL/LYTES - - Acute kidney injury, resolved - Hypophosphatemia 1.7 - s/p KPhos repletion 21mmol - - chao removed ENDO - - no listed hx of diabetes - A1C 6.2, prediabetes HEME - - stable H/H, follow CBC ID - see above - leukocytosis downtrending, 29->34->28->19 - BC 48 hrs no growth. - UC w/ mixed claudia, low counts possible pancreatic abscess - continue meropenem; defer to GI regarding abx choice and duration (possibly 4 wks) - awaiting MRI pancreas --Prophylaxis VTE: Heparin GI: Pepcid Lines: Peripheral Diet: NPO while awaiting MRI pancreas. Otherwise, diet had been advanced to full liquids low fat. Dispo: stable for downgrade from ICU (2) Acute renal insufficiency: (3) BPH (benign prostatic hyperplasia): (4) Admitted to intensive care unit: (5) Sepsis: (6) Hyperlipidemia: (7) Hypertension: (8) GERD (gastroesophageal reflux disease): (9) Hyponatremia: (10) Hypophosphatemia: Admission and Anticipated Discharge Date Admission Date: June 15, 2021 Supervising Physician Co-Signing Physician Notes Seen and examined. Discussed with off going roof technician. Discussed with family practice resident and agree with assessment and plan as noted. Patient was presented on multidisciplinary rounds and discussed with bedside critical care nurse as well. The patient's improved clinically. His best complaint currently is his chronic back pain. He is tolerating a diet without significant abdominal pain. He is passing gas. Bladder pressures have been checked but they are likely unreliable in this patient who is awake and breathing spontaneously. Will defer antibiotic choice and duration to GI. The patient is stable to transfer out of the intensive care unit to the floor. We will sign off at this point time from a critical care perspective. Feel free to contact us if we can be of additional assistance. Subjective Patient's main complaint is low back pain. He denies any chest pain or SOB. His epigastric pain has resolved. No N/V. No headache or dizziness. Last BM was >2 days ago. He does not feel hungry. Review of Systems Review of Systems: All systems reviewed & are unremarkable except as noted in HPI & below Physical Exam Physical Exam: General: A&Ox4. NAD. Cooperative. Uncomfortable from low back pain. HEENT: Atraumatic, normocephalic. EOMI. PERRL. Neck is loud to auscultation bilaterally. Pulm: Diffuse short-duration expiratory wheezes. + transmitted upper airway sounds from neck. No respiratory distress. Cardiac: RRR, -mrg. Radial pulses intact and symmetrical. No LE edema. Abdominal: Mildly distended. Soft, nontender, including at epigastrium. +BS. Neuro: Moving all extremities. Results & Data Results & Data ([facility]) Vital Signs (Past 12 Hours) Vital Signs Temp Pulse Pulse Resp BP BP BP 06/17/21 08:30 88 22 107/66 06/17/21 08:00 36.5 C 91 H 18 125/72 06/17/21 06:10 93 H 16 127/73 06/17/21 05:00 95 H 14 116/79 06/17/21 04:00 37.1 C 87 15 115/67 06/17/21 03:00 84 14 114/63 06/17/21 02:00 89 12 126/61 06/17/21 01:00 90 16 124/88 06/17/21 00:00 37.2 C 88 14 107/80 06/16/21 23:00 95 H 16 116/67 06/16/21 22:00 90 14 127/70 Pulse Ox 06/17/21 08:30 97 06/17/21 08:00 96 06/17/21 06:10 99 06/17/21 05:00 94 06/17/21 04:00 95 06/17/21 03:00 97 06/17/21 02:00 95 06/17/21 01:00 95 06/17/21 00:00 95 06/16/21 23:00 94 06/16/21 22:00 95 Laboratory Results Abnormal lab results 06/16/21 06/17/21 06/17/21 Range/Units 05:23 04:29 04:29 WBC 18.72 H (4.8-10.8) K/uL RBC 3.87 L (4.7-6.1) M/uL Hgb 12.0 L (14.0-18.0) g/dL Hct 35.8 L (42-52) % RDW Std Deviation 46.8 H (36.4-46.3) fL Neut # (Auto) 16.12 H (1.4-6.5) K/uL Lymph # (Auto) 0.96 L (1.2-3.4) K/uL Carver # (Auto) 1.48 H (0.11-0.59) K/uL Immature Gran # (Auto) 0.11 H (0.00-0.02) K/uL Sodium 135 L (136-145) mmol/L Anion Gap 2.0 L (3-11) BUN 34 H (7-18) mg/dl BUN/Creatinine Ratio 36.8 H (10-20) Glucose 100 H (70-99) mg/dl Hemoglobin A1c 6.2 H (4.5-5.6) % Calcium 7.6 L (8.5-10.1) mg/dl Phosphorus 1.7 L D (2.5-4.9) mg/dl Total Bilirubin 1.4 H (0.2-1) mg/dl Direct Bilirubin 0.6 H (0-0.2) mg/dl AST 59 H (15-37) U/L ALT 172 H (12-78) U/L C-Reactive Protein 22.00 H (0-0.29) mg/dl Total Protein 5.8 L (6.4-8.2) gm/dl Albumin 2.6 L (3.4-5.0) gm/dl Procalcitonin (0-0.5) ng/ml 06/17/21 Range/Units 04:29 WBC (4.8-10.8) K/uL RBC (4.7-6.1) M/uL Hgb (14.0-18.0) g/dL Hct (42-52) % RDW Std Deviation (36.4-46.3) fL Neut # (Auto) (1.4-6.5) K/uL Lymph # (Auto) (1.2-3.4) K/uL Carver # (Auto) (0.11-0.59) K/uL Immature Gran # (Auto) (0.00-0.02) K/uL Sodium (136-145) mmol/L Anion Gap (3-11) BUN (7-18) mg/dl BUN/Creatinine Ratio (10-20) Glucose (70-99) mg/dl Hemoglobin A1c (4.5-5.6) % Calcium (8.5-10.1) mg/dl Phosphorus (2.5-4.9) mg/dl Total Bilirubin (0.2-1) mg/dl Direct Bilirubin (0-0.2) mg/dl AST (15-37) U/L ALT (12-78) U/L C-Reactive Protein (0-0.29) mg/dl Total Protein (6.4-8.2) gm/dl Albumin (3.4-5.0) gm/dl Procalcitonin 1.15 H (0-0.5) ng/ml Resident Activity Tracking Resident Involvement: Resident Care Provided Care Provided: Adult [facility]
[2021-06-17] MEDS: DICLOFENAC SOD 1% GEL 100 GM TUBE EXT PRN (10:09)
[2021-06-17] MEDS: FINASTERIDE 5 MG TAB PO SCH (10:09)
[2021-06-17] MEDS: FAMOTIDINE 20 MG TAB PO SCH ×2 (10:09→23:12)
--- NOTE | 2021-06-17 10:53 | Gastroenterology Progress Note ---
Date of Service June 17, 2021 Assessment & Plan (1) Acute necrotizing pancreatitis: Plan: -Keep NPO for MRI today for further evaluation -Continue IV antibiotics per primary team -Supportive care and pain control per primary team -Continue to trend LFTs Further recommendations pending results of MRI. Admission and Anticipated Discharge Date Admission Date: June 15, 2021 Supervising Physician Co-Signing Physician Notes Agree with TRISTAN Whitaker as above Abd: Soft, tender midepigastric, Distended, +BS Continue current therapy and supportive care MRI tonight for further evaluation Subjective Patient is a 75 yo male with necrotizing pancreatitis. Patient is resting in bed at the time of my visit. He notes that he has back pain. he denies other complaints at present. WBC 18,720, T Bili 1.4, D Bili 0.6, CRP 22, AST 59, ALT 172. Review of Systems Constitutional: no fever Respiratory: no cough and no dyspnea Cardiovascular: no chest pain Gastrointestinal: + abdominal pain (abdominal/back pain) Musculoskeletal: + back pain Physical Exam Constitutional: no acute distress Respiratory: normal respiratory effort Cardiovascular: Extremities: no edema Gastrointestinal (Abdomen): Inspection/Auscultation: abdomen normal to inspection Percussion/Palpation: abdomen soft; abdomen nontender Results & Data Results & Data ([facility]) Vital Signs (Past 12 Hours) Vital Signs Temp Pulse Pulse Resp BP BP BP 06/17/21 09:30 91 H 18 122/61 06/17/21 08:30 88 22 107/66 06/17/21 08:00 36.5 C 91 H 18 125/72 06/17/21 06:10 93 H 16 127/73 06/17/21 05:00 95 H 14 116/79 06/17/21 04:00 37.1 C 87 15 115/67 06/17/21 03:00 84 14 114/63 06/17/21 02:00 89 12 126/61 06/17/21 01:00 90 16 124/88 06/17/21 00:00 37.2 C 88 14 107/80 06/16/21 23:00 95 H 16 116/67 Pulse Ox 06/17/21 09:30 97 06/17/21 08:30 97 06/17/21 08:00 96 06/17/21 06:10 99 06/17/21 05:00 94 06/17/21 04:00 95 06/17/21 03:00 97 06/17/21 02:00 95 06/17/21 01:00 95 06/17/21 00:00 95 06/16/21 23:00 94 PG Care Time/CCT Total # of Minutes Spent Total Time Spent with Patient: Total time spent is greater than 50% in coordination of care (as documented) at patient's floor/unit and/or counseling patient: Coding Level of Care Code 13329 Subseq [facility] 3 Diagnoses Acute necrotizing pancreatitis K85.91
--- NOTE | 2021-06-17 11:37 | Hospitalist Progress Note ---
Date of Service June 17, 2021 Assessment & Plan (1) Sepsis: Plan: Secondary to acute necrotizing pancreatitis On admission HR 117, WBC 39, lactate 3.0 CRP and prolactin were elevated too Has been receiving considerable amount of intravenous fluid Has been on intravenous meropenem Signs and symptoms are improving Blood and urine culture have been negative No fever and/or chills The white count is coming down and which is 18.72 as of 06/17/2021 The patient be transferred to telemetry unit for continuation of care (2) Acute necrotizing pancreatitis: Plan: This is a 75yo M with a PMH of HTN, HLD, peripheral neuropathy who presents with worsening abdominal pain x3 days. CT abd/pelvis with acute pancreatitis. Possible pancreatic necrosis and abscess/cyst formation No history of pancreatitis. Denies tobacco or alcohol use. Ultrasound did not show any gallstones but did show hepatic steatosis and lipid profile is unremarkable ER discussed potential transfer to [place] with Dr. Aldridge who advised that treatment would likely be the same if kept at [facility] Appreciate GI input and recommendation Appreciate machine ii trimmer input and recommendation His condition is a little better Improvement of LFTs, lipase, BUN and creatinine We will continue current management-n.p.o., IV fluids, pain medications as needed and antibiotic Prognosis remains poor Clinically little bit better today and has been tolerating clears orally Will be transferred to telemetry unit for continuation of care Elevated liver enzymes On admission Tbili 2.6, dbili 1, AST 286, ALT 631, alk phos 142, lipase 4,141 Has been improving (3) Acute renal insufficiency: Plan: Unknown renal baseline but Cr 1.89 in setting of sepsis, necrotizing pancreatitis Continue to monitor with daily BMP Creatinine has been normalized to 1.26 as of 06/16/2021 Creatinine remains normal at 0.92 as of 06/17/2021 (4) Hypertension: Plan: Home meds include lisinopril- hctz, which we will hold at this point due to potential FRANKLIN and dehydration Blood pressure remains on the upper side at 154/94 today Blood pressure is controlled today (5) Hyperlipidemia: Plan: On statin at home (6) BPH (benign prostatic hyperplasia): Plan: Flomax HS Code status: FULL PCP: [facility] MK Thompson Dispo: Admitted to ICU. Discharge planning ordered He will be transferred to PCU for continuation of care Admission and Anticipated Discharge Date Admission Date: June 15, 2021 Subjective 06/16/2021 The patient was seen and examined in ICU He complains to have abdominal distention and ongoing back pain Denies any nausea and or vomiting Bowel has not moved yet 06/17/2021 The patient was seen and examined in ICU He has been feeling a little better compared with yesterday Complains to have back pain which has been chronic and now is complicated by acute hemorrhagic pancreatitis He has been moving gas but no bowel movement No fever and no chills Review of Systems Review of Systems: All systems reviewed and are unremarkable except as noted below Gastrointestinal: Abdominal distention with discomfort. Back pain Physical Exam Physical Exam: Lying in bed with acute distress due to abdominal pain and distention Constitutional: well developed, well nourished, + ill appearing and + well hydrated Eyes: PERRL, conjunctivae normal, anicteric sclerae ENMT: external ear and nose normal, oropharynx normal Neck: trachea midline, no thyromegaly Respiratory: normal respiratory effort, lungs clear to auscultation Cardiovascular: Rate/Rhythm: regular rate, regular rhythm and + tachycardic Heart Sounds: normal S1 and normal S2; no murmur Extremities: no edema Gastrointestinal (Abdomen): Inspection/Auscultation: + abdomen distended; + abnormal bowel sounds (Diminished) Percussion/Palpation: + abdomen tender, + guarding and + abdomen firm; abdomen not rigid Musculoskeletal: No acute arthritis in any joint Neurologic: Alert, awake and oriented. Generally weak Lymphatic: no cervical or axillary lymphadenopathy Results & Data Results & Data ([facility]) Vital Signs (Past 12 Hours) Vital Signs Temp Pulse Pulse Resp BP BP BP 06/17/21 09:30 91 H 18 122/61 06/17/21 08:30 88 22 107/66 06/17/21 08:00 36.5 C 91 H 18 125/72 06/17/21 06:10 93 H 16 127/73 06/17/21 05:00 95 H 14 116/79 06/17/21 04:00 37.1 C 87 15 115/67 06/17/21 03:00 84 14 114/63 06/17/21 02:00 89 12 126/61 06/17/21 01:00 90 16 124/88 06/17/21 00:00 37.2 C 88 14 107/80 Pulse Ox 06/17/21 09:30 97 06/17/21 08:30 97 06/17/21 08:00 96 06/17/21 06:10 99 06/17/21 05:00 94 06/17/21 04:00 95 06/17/21 03:00 97 06/17/21 02:00 95 06/17/21 01:00 95 06/17/21 00:00 95 Laboratory Results Short CBC 06/17/21 Range/Units 04:29 WBC 18.72 H (4.8-10.8) K/uL Hgb 12.0 L (14.0-18.0) g/dL Hct 35.8 L (42-52) % Plt Count 182 (130-400) K/uL BMP 06/17/21 04:29 Sodium 135 L Potassium 3.9 Chloride 103 Carbon Dioxide 30 BUN 34 H Creatinine 0.92 D Glucose 100 H Calcium 7.6 L Liver Function 06/17/21 Range/Units 04:29 Total Bilirubin 1.4 H (0.2-1) mg/dl Direct Bilirubin 0.6 H (0-0.2) mg/dl AST 59 H (15-37) U/L ALT 172 H (12-78) U/L Alkaline Phosphatase 62 (45-117) U/L Albumin 2.6 L (3.4-5.0) gm/dl Medications Administered Current Inpatient Medications Atorvastatin Calcium (Atorvastatin 20 Mg Tab) 20 mg PO HS APOLLO Stop: 07/15/21 20:59 Last Admin: 06/16/21 20:41 Dose: 20 mg Documented by: Diclofenac Sodium (Diclofenac Sod 1% Gel 100 Gm Tube) 2 gm EXT Q6H PRN PRN Reason: Pain Stop: 07/17/21 08:44 Last Admin: 06/17/21 10:09 Dose: 2 gm Documented by: Famotidine (Famotidine 20 Mg Tab) 20 mg PO BID APOLLO Stop: 07/15/21 20:59 Last Admin: 06/17/21 10:09 Dose: 20 mg Documented by: Finasteride (Finasteride 5 Mg Tab) 5 mg PO QAM APOLLO Stop: 07/16/21 08:59 Last Admin: 06/17/21 10:09 Dose: 5 mg Documented by: Heparin Sodium (Porcine) (Heparin Sod 5,000 Unit/0.5 Ml Vial) 5,000 units SQ Q12H APOLLO Stop: 07/16/21 05:59 Last Admin: 06/17/21 05:01 Dose: Not Given Documented by: Hydromorphone HCl (Hydromorphone Inj 1 Mg/Ml Syringe) 1 mg IV Q4H PRN PRN Reason: Pain Stop: 06/29/21 16:43 Meropenem 500 mg/ Syringe 10 mls @ 2 mls/min IV Q6H APOLLO; Protocol Stop: 06/25/21 15:59 Last Admin: 06/17/21 07:39 Dose: 2 mls/min Documented by: Miscellaneous (Icu Protocol For Hyperglycemia) 1 ea N/A PRN PRN; Protocol PRN Reason: Hyperglycemia Protocol Stop: 06/17/21 15:43 Miscellaneous Information (Meropenem Consult Acitve) 1 ea N/A UD PRN PRN Reason: Consult Stop: 07/15/21 14:21 Tamsulosin HCl (Tamsulosin Hcl 0.4 Mg Cap) 0.4 mg PO HS APOLLO Stop: 07/15/21 20:59 Last Admin: 06/16/21 20:41 Dose: 0.4 mg Documented by:
--- NOTE | 2021-06-17 16:53 | Billing Data ---
Date of Service June 17, 2021 Coding Level of Care Code 65316 Initial Inpt Care Lvl 3 Time Spent (min) 45
[2021-06-17] MEDS: TAMSULOSIN HCL 0.4 MG CAP PO SCH (23:12)
[2021-06-17] MEDS: ATORVASTATIN 20 MG TAB PO SCH (23:12)
[2021-06-18] MEDS ORDERED: GADOBUTROL 65ML VIAL IV ONE (01:04)
[2021-06-18 01:46] LABS: Hepatitis A Antibody IgM NON-REACTIVE (NON-REACTIVE); Hepatitis B Core Antibody IgM NON-REACTIVE (NON-REACTIVE)
[2021-06-18] MEDS: MEROPENEM 500 MG in SYRINGE 0 ML IV SCH ×4 (03:04→20:00)
[2021-06-18] MEDS: HYDROmorphone INJ 1 MG/ML SYRINGE IV PRN ×3 (05:04→20:00)
[2021-06-18] MEDS: HEPARIN SOD 5,000 UNIT/0.5 ML VIAL SQ SCH ×2 (05:07→17:00)
[2021-06-18 07:00] LABS: Basophils # (auto) 0.02 K/uL (0-0.2); Basophils % (auto) 0.1 %; Eosinophils # (auto) 0.26 K/uL (0-0.5); Eosinophils % (auto) 1.5 %; Hemoglobin 11.3 g/dL (14.0-18.0); Immature Granulocytes # (auto) 0.08 K/uL (0.00-0.02); Immature Granulocytes % (auto) 0.5 %; Lymphocytes # (auto) 0.91 K/uL (1.2-3.4); Lymphocytes % (auto) 5.3 %; Mean Corpuscular Hemoglobin 30.8 pg (25-34); Mean Corpuscular Hgb Conc 33.2 g/dL (32-36); Mean Corpuscular Volume 92.6 fL (80-100); Mean Platelet Volume 8.6 fL (7.4-10.4); Monocytes # (auto) 1.91 K/uL (0.11-0.59); Monocytes % (auto) 11.1 %; Neutrophils # (auto) 14.09 K/uL (1.4-6.5); Neutrophils % (auto) 81.5 %; Platelet Count 211 K/uL (130-400); RDW Coefficient of Variation 13.6 % (11.5-14.5); Red Blood Count 3.67 M/uL (4.7-6.1); White Blood Count 17.27 K/uL (4.8-10.8)
--- NOTE | 2021-06-18 07:07 | XRay Report ---
XR orbits for MRI HISTORY: 75 years-old Male Screening for foreign body for MRI COMPARISON: None TECHNIQUE: 3 views of the orbits FINDINGS: No opaque foreign body of the orbits. No acute facial bone fracture identified. Mastoid air cells and paranasal sinuses are generally clear. IMPRESSION: No opaque foreign body of the orbits. ACT 112: Negative or not required by law. The above report was generated using voice recognition software. It may contain grammatical, syntax o r spelling errors. Electronically signed by: Akhil Padron M.D. 06/18/2021 7:06 AM
[2021-06-18 07:13] LABS: Prothrombin Time 10.5 Seconds (9.0-12.0)
[2021-06-18 07:36] LABS: Albumin Level 2.5 gm/dl (3.4-5.0); BUN Creatinine Ratio 33.5 (10-20); Calcium 7.9 mg/dl (8.5-10.1); Creatinine Clr Calc Pharmacy 91.1 ml/min; Est GFR (African American) 100.5 ml/min; Est GFR (Non-African American) 86.7 ml/min
[2021-06-18 07:39] LABS: Albumin Globulin Ratio 0.8 (0.9-2); Bilirubin,Total 1.3 mg/dl (0.2-1); Globulin 3.3 gm/dl (2.5-4.0); Total Protein 5.8 gm/dl (6.4-8.2)
[2021-06-18] MEDS: FINASTERIDE 5 MG TAB PO SCH (08:01)
[2021-06-18] MEDS: CHOLECALCIFEROL 1,000 UNITS 25 MCG TAB PO SCH (08:01)
[2021-06-18] MEDS: FAMOTIDINE 20 MG TAB PO SCH ×2 (08:01→20:02)
[2021-06-18] MEDS ORDERED: ALBUTEROL 0.083% NEBU SOLN 3 ML VIAL NEB PRN (09:03)
[2021-06-18] MEDS: NSS + 20MEQ KCL 20 MEQ/1,000 ML BAG IV SCH ×2 (09:39→16:53)
--- NOTE | 2021-06-18 10:38 | Gastroenterology Progress Note ---
Date of Service June 18, 2021 Assessment & Plan (1) Acute necrotizing pancreatitis: Plan: -Await MRI result -If patient unable to advance diet to liquids/light diet, would need to consider NG feeding -Continue IV antibiotics -Continue to monitor LFTs -Continue pain control & IV fluid hydration -Further recommendations pending results of MRI Admission and Anticipated Discharge Date Admission Date: June 15, 2021 Supervising Physician Co-Signing Physician Notes Agree with Eunice Blackwell PAC as above Abd: Soft, NT, Distended, +BS MRI Pending Continue current therapy and supportive care Subjective Patient is a 75 yo male with necrotizing pancreatitis. WBC 17,270, T Bili 1.3, AST 38, ALT 113. Patient reports persistent back pain. An MRI radiology report is pending. Patient reports that he is short of breath today. He denies nausea, vomiting, or other new GI complaints. He continues on IV antibiotic therapy at present. Review of Systems Constitutional: no fever and no chills Respiratory: no cough and no dyspnea Cardiovascular: no chest pain Gastrointestinal: no abdominal pain (+back pain), no nausea and no vomiting Physical Exam Constitutional: WD/WN, vitals as above Respiratory: + cough Auscultation: + crackles Cardiovascular: RRR, no murmur, no edema Gastrointestinal (Abdomen): normal bowel sounds, soft, nontender, no hepatosplenomegaly Psychiatric: A+Ox3, euthymic affect Results & Data Results & Data ([facility]) Vital Signs (Past 12 Hours) Vital Signs Temp Pulse Pulse Pulse Resp BP BP 06/18/21 09:57 83 20 06/18/21 07:48 36.6 C 75 22 116/56 L 06/18/21 03:11 37.4 C 73 20 115/63 06/18/21 00:00 82 06/17/21 23:05 37.5 C 77 20 123/64 Pulse Ox 06/18/21 09:57 96 06/18/21 07:48 96 06/18/21 03:11 94 06/18/21 00:00 06/17/21 23:05 95 PG Care Time/CCT Total # of Minutes Spent Total Time Spent with Patient: Total time spent is greater than 50% in coordination of care (as documented) at patient's floor/unit and/or counseling patient: Coding Level of Care Code 67574 Subseq Hosp Care Lvl 3 Diagnoses Acute necrotizing pancreatitis K85.91
[2021-06-18] MEDS: LIDOCAINE 5% 1 PATCH TD SCH (13:04)
[2021-06-18] MEDS: LORATADINE 10 MG TAB PO SCH (13:05)
--- NOTE | 2021-06-18 15:58 | Magnetic Resonance Report ---
MR abdomen wo/w con HISTORY: 75 years-old Male Pancreatitis with necrosis acute epigastric abdominal pain with concern f or acute pancreatitis COMPARISON: Ultrasound of the liver 06/15/2021, CTA chest, abdomen and pelvis 06/15/2021 TECHNIQUE: MRI of the abdomen was obtained both with and without the use of 10.0 mL Gadavist FINDINGS: Study is mildly motion degraded. Trace right and small left pleural effusions. Trace abdominal pelvic free fluid. Moderate interstitial and peripancreatic edema is similar to comparison there is an ovoi d 2.6 x 2.3 x 2.0 cm T2 hyperintense collection along the superior aspect of the pancreatic body on i mage 211 series 7 suggestive of an acute peripancreatic fluid collection. No encapsulated fluid colle ctions are identified. No pancreatic ductal dilation or pancreatic mass identified. There is heteroge neously decreased enhancement involving the pancreatic body and uncinate process which is similar to comparison. Partially occlusive thrombus of the superior mesenteric vein. Duodenal diverticulum. Mild distention of the proximal duodenum is suggestive of a focal ileus. Wall thickening of the stomach and duodenum is likely reactive. No bowel obstruction. Mild nonspecific tara ateral perinephric stranding. Unremarkable appearance of the liver. 5 mm T2 hyperintense lesion invol ving the posterior right hepatic lobe is too small to characterize however suggestive of a probable c yst. The gallbladder is mildly contracted and demonstrates mild wall thickening. No biliary ductal di lation identified. IMPRESSION: 1. Findings compatible with acute pancreatitis. Areas of heterogeneously decreased enhancement of the pancreas, notably within the body and uncinate process are suggestive of necrotizing pancreatitis. N o pancreatic ductal dilation or pancreatic mass identified. 2. 2.6 cm T2 hyperintense collection along the superior margin of the pancreatic body is suggestive o f an acute peripancreatic fluid collection. No abscess. 3. Small partially occlusive thrombus of the superior mesenteric vein. 4. Trace right and small left pleural effusions. 5. Gastric and duodenal wall thickening with moderate distention of the proximal duodenum, likely dirk ctive from the acute pancreatitis. ACT 112: Negative or not required by law. The above report was generated using voice recognition software. It may contain grammatical, syntax o r spelling errors. Electronically signed by: Akhil Padron M.D. 06/18/2021 3:57 PM
--- NOTE | 2021-06-18 17:18 | Hospitalist Progress Note ---
Date of Service June 18, 2021 Assessment & Plan (1) Sepsis: Plan: Secondary to acute necrotizing pancreatitis On admission HR 117, WBC 39, lactate 3.0 CRP and prolactin were elevated too Has been receiving considerable amount of intravenous fluid Has been on intravenous meropenem Signs and symptoms are improving Blood and urine culture have been negative No fever and/or chills The white count is coming down Clinically better-continue current antibiotic (2) Acute necrotizing pancreatitis: Plan: This is a 75yo M with a PMH of HTN, HLD, peripheral neuropathy who presents with worsening abdominal pain x3 days. CT abd/pelvis with acute pancreatitis. Possible pancreatic necrosis and abscess/cyst formation No history of pancreatitis. Denies tobacco or alcohol use. Ultrasound did not show any gallstones but did show hepatic steatosis and lipid profile is unremarkable ER discussed potential transfer to [place] with Dr. Aldridge who advised that treatment would likely be the same if kept at [facility] Appreciate GI input and recommendation Appreciate publishing director input and recommendation His condition is a little better Improvement of LFTs, lipase, BUN and creatinine We will continue current management-n.p.o., IV fluids, pain medications as needed and antibiotic Prognosis remains poor Clinically little bit better today and has been tolerating clears orally Abdominal MRI showed acute necrotizing pancreatitis but no evidence of abscess elsewhere. 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 Elevated liver enzymes On admission Tbili 2.6, dbili 1, AST 286, ALT 631, alk phos 142, lipase 4,141 Has been improving Acute on chronic back pain Has been complaining of back pain which may be aggravated by acute necrotizing pancreatitis Will apply local Lidoderm patch and try to avoid any narcotics use (3) Acute renal insufficiency: Plan: Unknown renal baseline but Cr 1.89 in setting of sepsis, necrotizing pancreatitis Continue to monitor with daily BMP Creatinine has been normalized to 1.26 as of 06/16/2021 Creatinine remains normal at 0.92 as of 06/17/2021 (4) Hypertension: Plan: Home meds include lisinopril- hctz, which we will hold at this point due to potential FR[place]LIN and dehydration Blood pressure remains on the upper side at 154/94 today Blood pressure is controlled today (5) Hyperlipidemia: Plan: On statin at home (6) BPH (benign prostatic hyperplasia): Plan: Flomax HS Code status: FULL PCP: [facility] MK Thompson Dispo: Admitted to ICU. Discharge planning ordered We will continue current management Admission and Anticipated Discharge Date Admission Date: June 15, 2021 Subjective 06/16/2021 The patient was seen and examined in ICU He complains to have abdominal distention and ongoing back pain Denies any nausea and or vomiting Bowel has not moved yet 06/17/2021 The patient was seen and examined in ICU He has been feeling a little better compared with yesterday Complains to have back pain which has been chronic and now is complicated by acute hemorrhagic pancreatitis He has been moving gas but no bowel movement No fever and no chills 06/18/2021 The patient was seen and examined in telemetry unit He has been complaining of back pain without radiation Denies any significant abdominal symptoms and no nausea and or vomiting He has been feeling cold with nasal congestion Review of Systems Review of Systems: All systems reviewed and are unremarkable except as noted below Gastrointestinal: Abdominal distention with discomfort. Back pain Physical Exam Physical Exam: Lying in bed with acute distress due to abdominal pain and distention Constitutional: well developed, well nourished, + ill appearing and + well hydrated Eyes: PERRL, conjunctivae normal, anicteric sclerae ENMT: external ear and nose normal, oropharynx normal Neck: trachea midline, no thyromegaly Respiratory: normal respiratory effort, lungs clear to auscultation Cardiovascular: Rate/Rhythm: regular rate, regular rhythm and + tachycardic Heart Sounds: normal S1 and normal S2; no murmur Extremities: no edema Gastrointestinal (Abdomen): Inspection/Auscultation: + abdomen distended; + abnormal bowel sounds (Diminished) Percussion/Palpation: + abdomen tender, + guarding and + abdomen firm; abdomen not rigid Musculoskeletal: No significant spinal tenderness. No radiculopathy Neurologic: Alert and awake. Generally weak and lethargic Lymphatic: no cervical or axillary lymphadenopathy Results & Data Results & Data ([facility]) Vital Signs (Past 12 Hours) Vital Signs Temp Pulse Pulse Pulse Resp BP BP 06/18/21 16:01 36.8 C 78 18 134/64 06/18/21 16:00 59 L 06/18/21 11:37 37.0 C 72 18 109/57 L 06/18/21 09:57 83 20 06/18/21 08:00 59 L 06/18/21 07:48 36.6 C 75 22 116/56 L Pulse Ox 06/18/21 16:01 95 06/18/21 16:00 06/18/21 11:37 97 06/18/21 09:57 96 06/18/21 08:00 06/18/21 07:48 96 Laboratory Results Short CBC 06/18/21 Range/Units 06:46 WBC 17.27 H (4.8-10.8) K/uL Hgb 11.3 L (14.0-18.0) g/dL Hct 34.0 L (42-52) % Plt Count 211 (130-400) K/uL BMP 06/18/21 06:46 Sodium 135 L Potassium 4.0 Chloride 102 Carbon Dioxide 30 BUN 28 H Creatinine 0.83 Glucose 96 Calcium 7.9 L Liver Function 06/18/21 Range/Units 06:46 Total Bilirubin 1.3 H (0.2-1) mg/dl AST 38 H (15-37) U/L ALT 113 H (12-78) U/L Alkaline Phosphatase 64 (45-117) U/L Albumin 2.5 L (3.4-5.0) gm/dl Medications Administered Current Inpatient Medications Albuterol (Albuterol 0.083% Nebu Soln 3 Ml Vial) 2.5 mg NEB Q6R PRN PRN Reason: Congestion Stop: 07/18/21 09:02 Last Admin: 06/18/21 09:56 Dose: 2.5 mg Documented by: Atorvastatin Calcium (Atorvastatin 20 Mg Tab) 20 mg PO HS APOLLO Stop: 07/15/21 20:59 Last Admin: 06/17/21 23:12 Dose: 20 mg Documented by: Diclofenac Sodium (Diclofenac Sod 1% Gel 100 Gm Tube) 2 gm EXT Q6H PRN PRN Reason: Pain Stop: 07/17/21 08:44 Last Admin: 06/17/21 10:09 Dose: 2 gm Documented by: Famotidine (Famotidine 20 Mg Tab) 20 mg PO BID APOLLO Stop: 07/15/21 20:59 Last Admin: 06/18/21 08:01 Dose: 20 mg Documented by: Finasteride (Finasteride 5 Mg Tab) 5 mg PO QAM APOLLO Stop: 07/16/21 08:59 Last Admin: 06/18/21 08:01 Dose: 5 mg Documented by: Heparin Sodium (Porcine) (Heparin Sod 5,000 Unit/0.5 Ml Vial) 5,000 units SQ Q12H [facility] Stop: 07/16/21 05:59 Last Admin: 06/18/21 17:00 Dose: Not Given Documented by: Hydromorphone HCl (Hydromorphone Inj 1 Mg/Ml Syringe) 1 mg IV Q4H PRN PRN Reason: Pain Stop: 06/29/21 16:43 Last Admin: 06/18/21 15:36 Dose: 1 mg Documented by: Meropenem 500 mg/ Syringe 10 mls @ 2 mls/min IV Q6H [facility]; Protocol Stop: 06/25/21 15:59 Last Admin: 06/18/21 13:05 Dose: 2 mls/min Documented by: Potassium Chloride/Sodium Chloride (Normal Saline W/20 Meq Kcl) 20 meq in 1,000 mls @ 125 mls/hr IV .Q8H [facility] Stop: 07/18/21 08:14 Last Admin: 06/18/21 16:53 Dose: 125 mls/hr Documented by: Lidocaine (Lidocaine 5% 1 Patch) 1 patch TD [facility] Stop: 07/18/21 11:29 Last Admin: 06/18/21 13:04 Dose: 1 patch Documented by: Loratadine (Loratadine 10 Mg Tab) 10 mg PO [facility] Stop: 07/18/21 11:14 Last Admin: 06/18/21 13:05 Dose: 10 mg Documented by: Miscellaneous (Remove Lidoderm Patch) 1 ea N/A DAILY@2100 [facility] Stop: 07/18/21 20:59 Miscellaneous Information (Meropenem Consult Acitve) 1 ea N/A UD PRN PRN Reason: Consult Stop: 07/15/21 14:21 Tamsulosin HCl (Tamsulosin Hcl 0.4 Mg Cap) 0.4 mg PO HS [facility] Stop: 07/15/21 20:59 Last Admin: 06/17/21 23:12 Dose: 0.4 mg Documented by: Vitamin D (Cholecalciferol 1,000 Units 25 Mcg Tab) 2,[facility] Stop: 07/18/21 08:59 Last Admin: 06/18/21 08:01 Dose: 2,000 units Documented by:
[2021-06-18] MEDS ORDERED: Nursing to Pharmacy Communication SCH (18:30)
[2021-06-18] MEDS: ATORVASTATIN 20 MG TAB PO SCH (20:01)
[2021-06-18] MEDS: TAMSULOSIN HCL 0.4 MG CAP PO SCH (20:02)
[2021-06-18] MEDS: DICLOFENAC SOD 1% GEL 100 GM TUBE EXT PRN (22:36)
[2021-06-19] MEDS: MEROPENEM 500 MG in SYRINGE 0 ML IV SCH ×4 (02:02→20:10)
[2021-06-19] MEDS ORDERED: ACETAMINOPHEN 325 MG TAB PO STA (02:52)
[2021-06-19] MEDS: NSS + 20MEQ KCL 20 MEQ/1,000 ML BAG IV SCH ×2 (05:25→20:04)
[2021-06-19] MEDS: HEPARIN SOD 5,000 UNIT/0.5 ML VIAL SQ SCH ×3 (05:26→17:50)
[2021-06-19] MEDS: HYDROmorphone INJ 1 MG/ML SYRINGE IV PRN ×2 (05:26→15:42)
[2021-06-19 06:20] LABS: Basophils # (auto) 0.01 K/uL (0-0.2); Basophils % (auto) 0.1 %; Eosinophils # (auto) 0.27 K/uL (0-0.5); Eosinophils % (auto) 1.5 %; Hematocrit (blood only) 33.1 % (42-52); Hemoglobin 11.3 g/dL (14.0-18.0); Immature Granulocytes # (auto) 0.28 K/uL (0.00-0.02); Immature Granulocytes % (auto) 1.6 %; Lymphocytes # (auto) 1.08 K/uL (1.2-3.4); Lymphocytes % (auto) 6.1 %; Mean Corpuscular Hemoglobin 31.3 pg (25-34); Mean Corpuscular Hgb Conc 34.1 g/dL (32-36); Mean Corpuscular Volume 91.7 fL (80-100); Mean Platelet Volume 9.1 fL (7.4-10.4); Monocytes # (auto) 2.53 K/uL (0.11-0.59); Monocytes % (auto) 14.2 %; Neutrophils # (auto) 13.62 K/uL (1.4-6.5); Neutrophils % (auto) 76.5 %; Platelet Count 242 K/uL (130-400); RDW Coefficient of Variation 13.4 % (11.5-14.5); Red Blood Count 3.61 M/uL (4.7-6.1); White Blood Count 17.79 K/uL (4.8-10.8)
[2021-06-19 06:51] LABS: Albumin Level 2.2 gm/dl (3.4-5.0); BUN Creatinine Ratio 27.3 (10-20); Calcium 7.5 mg/dl (8.5-10.1); Creatinine Clr Calc Pharmacy 102.2 ml/min; Est GFR (African American) 104.7 ml/min; Est GFR (Non-African American) 90.4 ml/min; Potassium 3.8 mmol/L (3.5-5.1)
[2021-06-19 06:53] LABS: Albumin Globulin Ratio 0.7 (0.9-2); Bilirubin,Total 1.1 mg/dl (0.2-1); Globulin 3.3 gm/dl (2.5-4.0); Total Protein 5.5 gm/dl (6.4-8.2)
[2021-06-19] MEDS: FAMOTIDINE 20 MG TAB PO SCH ×2 (07:48→20:05)
[2021-06-19] MEDS: LORATADINE 10 MG TAB PO SCH (07:48)
[2021-06-19] MEDS: FINASTERIDE 5 MG TAB PO SCH (07:48)
[2021-06-19] MEDS: CHOLECALCIFEROL 1,000 UNITS 25 MCG TAB PO SCH (07:48)
[2021-06-19] MEDS: LIDOCAINE 5% 1 PATCH TD SCH (07:49)
--- NOTE | 2021-06-19 10:31 | Gastroenterology Progress Note ---
Date of Service June 19, 2021 Assessment & Plan (1) Acute necrotizing pancreatitis: Plan: -Would advise continuation of IV Meropenem x 14 days -Will add IV PPI BID given duodenal inflammation -Continue to monitor CBC, CMP -Diet as tolerated -Pain control per primary team -Discussed with patient that unfortunately this may take a significant amount of time to improve (2) Mesenteric vein thrombosis: Plan: -Will defer further management to primary team Admission and Anticipated Discharge Date Admission Date: June 15, 2021 Supervising Physician Co-Signing Physician Notes Agree with TRISTAN Whitaker as above Abd: Soft, NT, ND, +BS Continue current therapy and supportive care Will follow clinical course and make further recommendations as needed. Subjective Patient is a 75 yo male with necrotizing pancreatitis. The patient reports back pain, but notes it does not worsen with food intake. He notes that he is tolerating his diet well. He had an MRI yesterday that indicated necrotizing pa ncreatitis with fluid collection and thrombus of the mesenteric vein as well as gastric and duodenal wall thickening. He continues on IV Meropenem. WBC count is 17.79. Other findings on the MRI include a thrombus of the mesenteric vein and small pleural effusions. Review of Systems Constitutional: + fatigue; no fever and no chills Respiratory: + cough Cardiovascular: no chest pain Gastrointestinal: + abdominal pain (back pain); no nausea, no vomiting and no diarrhea/loose stools moving bowels routinely Physical Exam Gastrointestinal (Abdomen): normal bowel sounds, soft, nontender, no hepatosplenomegaly Results & Data Results & Data ([facility]) Vital Signs (Past 12 Hours) Vital Signs Temp Pulse Pulse Resp BP Pulse Ox 06/19/21 08:00 67 06/19/21 07:24 37.2 C 71 18 132/70 95 06/19/21 03:38 36.9 C 06/19/21 02:50 38.0 C H 75 19 114/58 L 94 06/19/21 00:00 67 PG Care Time/CCT Total # of Minutes Spent Total Time Spent with Patient: Total time spent is greater than 50% in coordination of care (as documented) at patient's floor/unit and/or counseling patient: Coding Level of Care Code 29946 Subseq Hosp Care Lvl 3 Diagnoses Acute necrotizing pancreatitis K85.91 Mesenteric vein thrombosis K55.069
[2021-06-19] MEDS: PANTOprazole 40 MG TAB PO SCH ×2 (12:17→20:05)
--- NOTE | 2021-06-19 17:33 | Hospitalist Progress Note ---
Date of Service June 19, 2021 Assessment & Plan (1) Sepsis: Plan: Secondary to acute necrotizing pancreatitis On admission HR 117, WBC 39, lactate 3.0 CRP and prolactin were elevated too Has been receiving considerable amount of intravenous fluid Has been on intravenous meropenem Signs and symptoms are improving Blood and urine culture have been negative Has had fever of 38.0 last night and white counts remains elevated at 17.79 Will ask for ID recommendation for antibiotic (2) Acute necrotizing pancreatitis: Plan: This is a 75yo M with a PMH of HTN, HLD, peripheral neuropathy who presents with worsening abdominal pain x3 days. CT abd/pelvis with acute pancreatitis. Possible pancreatic necrosis and abscess/cyst formation No history of pancreatitis. Denies tobacco or alcohol use. Ultrasound did not show any gallstones but did show hepatic steatosis and lipid profile is unremarkable ER discussed potential transfer to [place] with Dr. Aldridge who advised that treatment would likely be the same if kept at [facility] Appreciate GI input and recommendation Appreciate dietary services director input and recommendation His condition is a little better Improvement of LFTs, lipase, BUN and creatinine We will continue current management-n.p.o., IV fluids, pain medications as needed and antibiotic Prognosis remains poor Clinically little bit better today and has been tolerating clears orally Abdominal MRI showed acute necrotizing pancreatitis but no evidence of abscess elsewhere. 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 Abdominal pain is better but complains to back pain Elevated liver enzymes On admission Tbili 2.6, dbili 1, AST 286, ALT 631, alk phos 142, lipase 4,141 Has been improving Acute on chronic back pain Has been complaining of back pain which may be aggravated by acute necrotizing pancreatitis Will apply local Lidoderm patch and try to avoid any narcotics use We will try local diclofenac gel (3) Acute renal insufficiency: Plan: Unknown renal baseline but Cr 1.89 in setting of sepsis, necrotizing pancreatitis Continue to monitor with daily BMP Creatinine has been normalized to 1.26 as of 06/16/2021 Creatinine remains normal at 0.92 as of 06/17/2021 (4) Hypertension: Plan: Home meds include lisinopril- hctz, which we will hold at this point due to potential FRANKLIN and dehydration Blood pressure remains on the upper side at 154/94 today Blood pressure is controlled today (5) Hyperlipidemia: Plan: On statin at home (6) BPH (benign prostatic hyperplasia): Plan: Flomax HS Code status: FULL PCP: [facility] MK Thompson Dispo: Admitted to ICU. Discharge planning ordered We will continue current management Admission and Anticipated Discharge Date Admission Date: June 15, 2021 Subjective 06/16/2021 The patient was seen and examined in ICU He complains to have abdominal distention and ongoing back pain Denies any nausea and or vomiting Bowel has not moved yet 06/17/2021 The patient was seen and examined in ICU He has been feeling a little better compared with yesterday Complains to have back pain which has been chronic and now is complicated by acute hemorrhagic pancreatitis He has been moving gas but no bowel movement No fever and no chills 06/18/2021 The patient was seen and examined in telemetry unit He has been complaining of back pain without radiation Denies any significant abdominal symptoms and no nausea and or vomiting He has been feeling cold with nasal congestion 06/19/2021 The patient was seen and examined in telemetry unit He improved a little bit but he still complains a lot of back pain Denies any acute shortness of breath, denies any nausea and or vomiting Review of Systems Review of Systems: All systems reviewed and are unremarkable except as noted below Gastrointestinal: Abdominal distention with discomfort. Back pain Physical Exam Physical Exam: Lying in bed with acute distress due to abdominal pain and distention Constitutional: well developed, well nourished, + ill appearing and + well hydrated Eyes: PERRL, conjunctivae normal, anicteric sclerae ENMT: external ear and nose normal, oropharynx normal Neck: trachea midline, no thyromegaly Respiratory: normal respiratory effort, lungs clear to auscultation Cardiovascular: Rate/Rhythm: regular rate, regular rhythm and + tachycardic Heart Sounds: normal S1 and normal S2; no murmur Extremities: no edema Gastrointestinal (Abdomen): Inspection/Auscultation: + abdomen distended; + abnormal bowel sounds (Diminished) Percussion/Palpation: + abdomen tender, + guarding and + abdomen firm; abdomen not rigid Musculoskeletal: No acute arthritis in any joint Lymphatic: no cervical or axillary lymphadenopathy Results & Data Results & Data ([facility]) Vital Signs (Past 12 Hours) Vital Signs Temp Pulse Pulse Resp BP Pulse Ox 06/19/21 15:44 37.4 C 77 18 158/89 H 92 06/19/21 11:13 37.1 C 76 18 118/82 97 06/19/21 08:00 67 06/19/21 07:24 37.2 C 71 18 132/70 95 Laboratory Results Short CBC 06/19/21 Range/Units 06:04 WBC 17.79 H (4.8-10.8) K/uL Hgb 11.3 L (14.0-18.0) g/dL Hct 33.1 L (42-52) % Plt Count 242 (130-400) K/uL BMP 06/19/21 06:04 Sodium 134 L Potassium 3.8 Chloride 107 Carbon Dioxide 26 BUN 20 H Creatinine 0.75 Glucose 97 Calcium 7.5 L Liver Function 06/19/21 Range/Units 06:04 Total Bilirubin 1.1 H (0.2-1) mg/dl AST 33 (15-37) U/L ALT 85 H (12-78) U/L Alkaline Phosphatase 67 (45-117) U/L Albumin 2.2 L (3.4-5.0) gm/dl Medications Administered Current Inpatient Medications Albuterol (Albuterol 0.083% Nebu Soln 3 Ml Vial) 2.5 mg NEB Q6R PRN PRN Reason: Congestion Stop: 07/18/21 09:02 Last Admin: 06/18/21 09:56 Dose: 2.5 mg Documented by: Atorvastatin Calcium (Atorvastatin 20 Mg Tab) 20 mg PO HS APOLLO Stop: 07/15/21 20:59 Last Admin: 06/18/21 20:01 Dose: 20 mg Documented by: Diclofenac Sodium (Diclofenac Sod 1% Gel 100 Gm Tube) 2 gm EXT Q6H PRN PRN Reason: Pain Stop: 07/17/21 08:44 Last Admin: 06/18/21 22:36 Dose: 2 gm Documented by: Famotidine (Famotidine 20 Mg Tab) 20 mg PO BID [facility] Stop: 07/15/21 20:59 Last Admin: 06/19/21 07:48 Dose: 20 mg Documented by: Finasteride (Finasteride 5 Mg Tab) 5 mg PO QAM [facility] Stop: 07/16/21 08:59 Last Admin: 06/19/21 07:48 Dose: 5 mg Documented by: Heparin Sodium (Porcine) (Heparin Sod 5,000 Unit/0.5 Ml Vial) 5,000 units SQ Q12H [facility] Stop: 07/16/21 05:59 Last Admin: 06/19/21 05:29 Dose: Not Given Documented by: Hydromorphone HCl (Hydromorphone Inj 1 Mg/Ml Syringe) 1 mg IV Q4H PRN PRN Reason: Pain Stop: 06/29/21 16:43 Last Admin: 06/19/21 15:42 Dose: 1 mg Documented by: Meropenem 500 mg/ Syringe 10 mls @ 2 mls/min IV Q6H [facility]; Protocol Stop: 06/25/21 15:59 Last Admin: 06/19/21 13:22 Dose: 2 mls/min Documented by: Potassium Chloride/Sodium Chloride (Normal Saline W/20 Meq Kcl) 20 meq in 1,000 mls @ 75 mls/hr IV .[id number] [facility] Stop: 07/18/21 08:14 Last Admin: 06/19/21 05:25 Dose: 75 mls/hr Documented by: Lidocaine (Lidocaine 5% 1 Patch) 1 patch TD [facility] Stop: 07/18/21 11:29 Last Admin: 06/19/21 07:49 Dose: Not Given Documented by: Loratadine (Lor[facility]adine 10 Mg Tab) [facility] Stop: 07/18/21 11:14 Last Admin: 06/19/21 07:48 Dose: 10 mg Documented by: Miscellaneous (Remove Lidoderm Patch) 1 ea N/A DAILY@2100 [facility] Stop: 07/18/21 20:59 Last Admin: 06/18/21 20:02 Dose: 1 ea Documented by: Miscellaneous Information (Meropenem Consult Acitve) 1 ea N/A UD PRN PRN Reason: Consult Stop: 07/15/21 14:21 Pantoprazole Sodium (Pantoprazole 40 Mg Tab) 40 mg PO BID [facility] Stop: 07/19/21 10:59 Last Admin: 06/19/21 12:17 Dose: 40 mg Documented by: Tamsulosin HCl (Tamsulosin Hcl 0.4 Mg Cap) 0.4 mg PO HS [facility] Stop: 07/15/21 20:59 Last Admin: 06/18/21 20:02 Dose: 0.4 mg Documented by: Vitamin D (Cholecalciferol 1,000 Units 25 Mcg Tab) 2,000 [facility] Stop: 07/18/21 08:59 Last Admin: 06/19/21 07:48 Dose: 2,000 units Documented by:
[2021-06-19] MEDS: ATORVASTATIN 20 MG TAB PO SCH (20:04)
[2021-06-19] MEDS: TAMSULOSIN HCL 0.4 MG CAP PO SCH (20:05)
[2021-06-19] MEDS: DICLOFENAC SOD 1% GEL 100 GM TUBE EXT PRN (20:06)
[2021-06-19] MEDS ORDERED: ACETAMINOPHEN 325 MG TAB PO PRN (23:29)
[2021-06-20] MEDS ORDERED: ACETAMINOPHEN 325 MG TAB ONE (00:20)
[2021-06-20] MEDS: HYDROmorphone INJ 1 MG/ML SYRINGE IV PRN ×4 (00:22→16:15)
[2021-06-20] MEDS: MEROPENEM 500 MG in SYRINGE 0 ML IV SCH ×3 (02:56→14:31)
[2021-06-20 06:41] LABS: Hematocrit (blood only) 37.9 % (42-52); Hemoglobin 12.7 g/dL (14.0-18.0); Mean Corpuscular Hgb Conc 33.5 g/dL (32-36); Mean Corpuscular Volume 92.4 fL (80-100); Mean Platelet Volume 9.3 fL (7.4-10.4); Platelet Count 286 K/uL (130-400); RDW Coefficient of Variation 13.5 % (11.5-14.5); RDW Standard Deviation 45.7 fL (36.4-46.3); White Blood Count 20.88 K/uL (4.8-10.8)
[2021-06-20] MEDS: HEPARIN SOD 5,000 UNIT/0.5 ML VIAL SQ SCH ×2 (06:55→16:59)
[2021-06-20 07:06] LABS: Basophils # (auto) 0.04 K/uL (0-0.2); Basophils % (auto) 0.2 %; Eosinophils # (auto) 0.28 K/uL (0-0.5); Eosinophils % (auto) 1.3 %; Immature Granulocytes # (auto) 0.85 K/uL (0.00-0.02); Immature Granulocytes % (auto) 4.1 %; Lymphocytes # (auto) 1.72 K/uL (1.2-3.4); Lymphocytes % (auto) 8.2 %; Monocytes % (auto) 12.9 %; Neutrophils # (auto) 15.29 K/uL (1.4-6.5); Neutrophils % (auto) 73.3 %
[2021-06-20] MEDS: LIDOCAINE 5% 1 PATCH TD SCH (07:26)
[2021-06-20 07:27] LABS: Albumin Globulin Ratio 0.6 (0.9-2); Albumin Level 2.2 gm/dl (3.4-5.0); BUN Creatinine Ratio 19.2 (10-20); Calcium 7.8 mg/dl (8.5-10.1); Creatinine Clr Calc Pharmacy 92.6 ml/min; Globulin 3.4 gm/dl (2.5-4.0); Magnesium 2.2 mg/dl (1.8-2.4); Phosphorus 2.5 mg/dl (2.5-4.9); Potassium 4.8 mmol/L (3.5-5.1); Total Protein 5.6 gm/dl (6.4-8.2)
[2021-06-20] MEDS: CHOLECALCIFEROL 1,000 UNITS 25 MCG TAB PO SCH (07:49)
[2021-06-20] MEDS: LORATADINE 10 MG TAB PO SCH (07:49)
[2021-06-20] MEDS: FAMOTIDINE 20 MG TAB PO SCH ×2 (07:50→21:35)
[2021-06-20] MEDS: PANTOprazole 40 MG TAB PO SCH ×2 (07:50→21:35)
[2021-06-20] MEDS: FINASTERIDE 5 MG TAB PO SCH (07:50)
[2021-06-20] MEDS: NSS + 20MEQ KCL 20 MEQ/1,000 ML BAG IV SCH ×2 (09:31→21:34)
--- NOTE | 2021-06-20 09:52 | Communication Note ---
Date of Service: June 20, 2021 Patient is a 75 yo male with necrotizing pancreatitis.
--- NOTE | 2021-06-20 10:15 | Gastroenterology Progress Note ---
Date of Service June 20, 2021 Assessment & Plan (1) Acute necrotizing pancreatitis: Plan: -Would advise continuation of IV Meropenem x 14 days -Continue IV PPI BID given duodenal inflammation on MRI -Continue to monitor CBC, CMP -Diet as tolerated -Pain control per primary team -Discussed with Dr. Arthur. Given worsening WBC count and persistence of back pain, if no other source of leukocytosis, could consider transfer to a tertiary center. (2) Mesenteric vein thrombosis: Plan: -Will defer further management to primary team Admission and Anticipated Discharge Date Admission Date: June 15, 2021 Supervising Physician Co-Signing Physician Notes Agree with TRISTAN Whitaker as above Abd: Soft, NT, ND, +BS Continues to have BM's daily and tolerating PO intake Continue IV Abx and supportive care If symptoms worsen recommend transfer to tertiary care center Subjective Patient is a 75 yo male with necrotizing pancreatitis without abscess. Patient's WBC count continues to increase despite IV Meropenem. Patient reports persistence of back pain. He is eating a low-fat diet. Review of Systems Constitutional: + fatigue Cardiovascular: no chest pain Gastrointestinal: + abdominal pain (back pain) Physical Exam Constitutional: WD/WN, vitals as above Cardiovascular: Extremities: no edema Gastrointestinal (Abdomen): normal bowel sounds, soft, nontender, no hepatosplenomegaly Psychiatric: A+Ox3, euthymic affect Results & Data Results & Data ([facility]) Vital Signs (Past 12 Hours) Vital Signs Temp Pulse Pulse Resp BP Pulse Ox 06/20/21 07:38 76 06/20/21 07:13 36.9 C 74 17 131/71 97 06/20/21 03:38 37.1 C 72 18 134/66 95 06/20/21 00:00 73 06/19/21 23:27 38.3 C H 71 20 131/67 96 PG Care Time/CCT Total # of Minutes Spent Total Time Spent with Patient: Total time spent is greater than 50% in coordination of care (as documented) at patient's floor/unit and/or counseling patient: Coding Level of Care Code 66793 Subseq Hosp Care Lvl 2 Diagnoses Acute necrotizing pancreatitis K85.91 Mesenteric vein thrombosis K55.069
[2021-06-20] MEDS: DICLOFENAC SOD 1% GEL 100 GM TUBE EXT PRN (14:32)
--- NOTE | 2021-06-20 15:40 | Hospitalist Progress Note ---
Date of Service June 20, 2021 Assessment & Plan (1) Sepsis: Plan: Secondary to acute necrotizing pancreatitis On admission HR 117, WBC 39, lactate 3.0 CRP and prolactin were elevated too Has been receiving considerable amount of intravenous fluid Has been on intravenous meropenem Signs and symptoms are improving Blood and urine culture have been negative Has had fever of 38.0 last night and white counts remains elevated at 17.79 Clinically better, no more fever and no chills but white count increased to 20.88 Appreciate ID input and recommendation-no noticeable collection for aspiration, will change antibiotic to 1 g every 8 hourly and ultrasound to rule out pseudocyst if fever persisting or white cell count persisting (2) Acute necrotizing pancreatitis: Plan: This is a 75yo M with a PMH of HTN, HLD, peripheral neuropathy who presents with worsening abdominal pain x3 days. CT abd/pelvis with acute pancreatitis. Possible pancreatic necrosis and abscess/cyst formation No history of pancreatitis. Denies tobacco or alcohol use. Ultrasound did not show any gallstones but did show hepatic steatosis and lipid profile is unremarkable ER discussed potential transfer to [place] with Dr. Aldridge who advised that treatment would likely be the same if kept at [facility] Appreciate GI input and recommendation Appreciate marketing developer input and recommendation His condition is a little better Improvement of LFTs, lipase, BUN and creatinine We will continue current management-n.p.o., IV fluids, pain medications as needed and antibiotic Prognosis remains poor Clinically little bit better today and has been tolerating clears orally Abdominal MRI showed acute necrotizing pancreatitis but no evidence of abscess elsewhere. 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 Abdominal pain is better but complains to back pain Clinically much better Elevated liver enzymes On admission Tbili 2.6, dbili 1, AST 286, ALT 631, alk phos 142, lipase 4,141 Has been improving Acute on chronic back pain Has been complaining of back pain which may be aggravated by acute necrotizing pancreatitis Will apply local Lidoderm patch and try to avoid any narcotics use We will try local diclofenac gel (3) Acute renal insufficiency: Plan: Unknown renal baseline but Cr 1.89 in setting of sepsis, necrotizing pancreatit is Continue to monitor with daily BMP Creatinine has been normalized to 1.26 as of 06/16/2021 Creatinine remains normal at 0.92 as of 06/17/2021 (4) Hypertension: Plan: Home meds include lisinopril- hctz, which we will hold at this point due to potential [place] and dehydration Blood pressure remains on the upper side at 154/94 today Blood pressure is controlled today (5) Hyperlipidemia: Plan: On statin at home (6) BPH (benign prostatic hyperplasia): Plan: Flomax HS Code status: FULL PCP: [facility] Thompson Dispo: Admitted to ICU. Discharge planning ordered We will continue current management Admission and Anticipated Discharge Date Admission Date: June 15, 2021 Subjective 06/16/2021 The patient was seen and examined in ICU He complains to have abdominal distention and ongoing back pain Denies any nausea and or vomiting Bowel has not moved yet 06/17/2021 The patient was seen and examined in ICU He has been feeling a little better compared with yesterday Complains to have back pain which has been chronic and now is complicated by acute hemorrhagic pancreatitis He has been moving gas but no bowel movement No fever and no chills 06/18/2021 The patient was seen and examined in telemetry unit He has been complaining of back pain without radiation Denies any significant abdominal symptoms and no nausea and or vomiting He has been feeling cold with nasal congestion 06/19/2021 The patient was seen and examined in telemetry unit He improved a little bit but he still complains a lot of back pain Denies any acute shortness of breath, denies any nausea and or vomiting 06/20/2021 The patient was seen and examined in telemetry unit He has been feeling much better today Still has back pain but denies any abdominal pain, nausea and or vomiting No more fever and no chills Review of Systems Review of Systems: All systems reviewed and are unremarkable except as noted below Gastrointestinal: Abdominal distention with discomfort. Back pain Physical Exam Physical Exam: Lying in bed without any acute distress Constitutional: well developed, well nourished, + ill appearing and + well hydrated Eyes: PERRL, conjunctivae normal, anicteric sclerae ENMT: external ear and nose normal, oropharynx normal Neck: trachea midline, no thyromegaly Respiratory: normal respiratory effort, lungs clear to auscultation Cardiovascular: Rate/Rhythm: regular rate, regular rhythm and + tachycardic Heart Sounds: normal S1 and normal S2; no murmur Extremities: no edema Gastrointestinal (Abdomen): Inspection/Auscultation: + abdomen distended; + abnormal bowel sounds (Diminished) Percussion/Palpation: + abdomen tender, + guarding and + abdomen firm; abdomen not rigid Musculoskeletal: No acute arthritis in any joint Neurologic: Alert, awake and oriented. Generally weak without any focal neuro deficit Lymphatic: no cervical or axillary lymphadenopathy Results & Data Results & Data ([facility]) Vital Signs (Past 12 Hours) Vital Signs Temp Pulse Pulse Pulse Resp BP Pulse Ox 06/20/21 11:06 36.6 C 89 18 156/84 H 96 06/20/21 07:38 76 06/20/21 07:13 36.9 C 74 17 131/71 97 06/20/21 03:38 37.1 C 72 18 134/66 95 Laboratory Results Short CBC 06/20/21 Range/Units 06:01 WBC 20.88 H (4.8-10.8) K/uL Hgb 12.7 L (14.0-18.0) g/dL Hct 37.9 L (42-52) % Plt Count 286 (130-400) K/uL BMP 06/20/21 06:01 Sodium 135 L Potassium 4.8 D Chloride 105 Carbon Dioxide 27 BUN 15 Creatinine 0.80 Glucose 96 Calcium 7.8 L Liver Function 06/20/21 Range/Units 06:01 Total Bilirubin 1.0 (0.2-1) mg/dl AST 48 H (15-37) U/L ALT 86 H (12-78) U/L Alkaline Phosphatase 85 (45-117) U/L Albumin 2.2 L (3.4-5.0) gm/dl Medications Administered Current Inpatient Medications Acetaminophen (Acetaminophen 325 Mg Tab) 325 mg PO Q6H PRN PRN Reason: Mild Pain Stop: 07/19/21 23:28 Last Admin: 06/20/21 00:22 Dose: 325 mg Documented by: Albuterol (Albuterol 0.083% Nebu Soln 3 Ml Vial) 2.5 mg NEB Q6R PRN PRN Reason: Congestion Stop: 07/18/21 09:02 Last Admin: 06/18/21 09:56 Dose: 2.5 mg Documented by: Atorvastatin Calcium (Atorvastatin 20 Mg Tab) 20 mg PO HS [facility] Stop: 07/15/21 20:59 Last Admin: 06/19/21 20:04 Dose: 20 mg Documented by: Diclofenac Sodium (Diclofenac Sod 1% Gel 100 Gm Tube) 2 gm EXT Q6H PRN PRN Reason: Pain Stop: 07/17/21 08:44 Last Admin: 06/20/21 14:32 Dose: 2 gm Documented by: Famotidine (Famotidine 20 Mg Tab) 20 mg PO BID [facility] Stop: 07/15/21 20:59 Last Admin: 06/20/21 07:50 Dose: 20 mg Documented by: Finasteride (Finasteride 5 Mg Tab) 5 mg PO [facility] Stop: 07/16/21 08:59 Last Admin: 06/20/21 07:50 Dose: 5 mg Documented by: Heparin Sodium (Porcine) (Heparin Sod 5,000 Unit/0.5 Ml Vial) 5,000 units SQ Q12H [facility] Stop: 07/16/21 05:59 Last Admin: 06/20/21 06:55 Dose: Not Given Documented by: Hydromorphone HCl (Hydromorphone Inj 1 Mg/Ml Syringe) 1 mg IV Q4H PRN PRN Reason: Pain Stop: 06/29/21 16:43 Last Admin: 06/20/21 12:13 Dose: 1 mg Documented by: Potassium Chloride/Sodium Chloride (Normal Saline W/20 Meq Kcl) 20 meq in 1,000 mls @ 75 mls/hr IV .[id number] [facility] Stop: 07/18/21 08:14 Last Admin: 06/20/21 09:31 Dose: 75 mls/hr Documented by: Meropenem 1,000 mg/ Syringe 20 mls @ 2 mls/min IV Q8H [facility]; Protocol Stop: 06/30/21 15:44 Lidocaine (Lidocaine 5% 1 Patch) 1 patch TD [facility] Stop: 07/18/21 11:29 Last Admin: 06/20/21 07:26 Dose: Not Given Documented by: Loratadine (Loratadine 10 Mg Tab) 10 mg PO [facility] Stop: 07/18/21 11:14 Last Admin: 06/20/21 07:49 Dose: 10 mg Documented by: Miscellaneous (Remove Lidoderm Patch) 1 ea N/A DAILY@2100 [facility] Stop: 07/18/21 20:59 Last Admin: 06/19/21 20:05 Dose: Not Given Documented by: Miscellaneous Information (Meropenem Consult Acitve) 1 ea N/A UD PRN PRN Reason: Consult Stop: 07/15/21 14:21 Pantoprazole Sodium (Pantoprazole 40 Mg Tab) 40 mg PO BID [facility] Stop: 07/19/21 10:59 Last Admin: 06/20/21 07:50 Dose: 40 mg Documented by: Tamsulosin HCl (Tamsulosin Hcl 0.4 Mg Cap) 0.4 mg PO HS [facility] Stop: 07/15/21 20:59 Last Admin: 06/19/21 20:05 Dose: 0.4 mg Documented by: Vitamin D (Cholecalciferol 1,000 Units 25 Mcg Tab) [facility] Stop: 07/18/21 08:59 Last Admin: 06/20/21 07:49 Dose: 2,000 units Documented by:
[2021-06-20] MEDS: ATORVASTATIN 20 MG TAB PO SCH (21:35)
[2021-06-20] MEDS: TAMSULOSIN HCL 0.4 MG CAP PO SCH (21:35)
[2021-06-20] MEDS ORDERED: POLYETHYLENE (MIRALAX) 17 GM PACK PO STA (21:44)
[2021-06-20] MEDS ORDERED: POLYETHYLENE (MIRALAX) 17 GM PACK PO PRN (21:44)
[2021-06-20] MEDS ORDERED: LACTULOSE SYRUP 20 GM/30 ML UDC PO STA (21:44)
[2021-06-20] MEDS: MEROPENEM 1,000 MG in SYRINGE 0 ML IV SCH (21:45)
[2021-06-20] MEDS ORDERED: HYDROmorphone INJ 1 MG/ML SYRINGE IV PRN (21:46)
[2021-06-20] MEDS ORDERED: HYDROmorphone INJ 0.5 MG/0.5 ML SYR IV PRN (21:47)
[2021-06-20] MEDS: oxyCODONE HCL IR 5 MG TAB (IMMEDIATE RELEASE) PO PRN (22:25)
[2021-06-20] MEDS: DOCUSATE SODIUM/SENNA 50/8.6MG TAB PO SCH (23:24)
[2021-06-21] MEDS: HEPARIN SOD 5,000 UNIT/0.5 ML VIAL SQ SCH ×3 (06:37→17:36)
[2021-06-21 06:39] LABS: Hemoglobin 13.4 g/dL (14.0-18.0); Mean Corpuscular Hemoglobin 31.4 pg (25-34); Mean Corpuscular Hgb Conc 34.4 g/dL (32-36); Mean Corpuscular Volume 91.3 fL (80-100); Mean Platelet Volume 9.1 fL (7.4-10.4); Platelet Count 321 K/uL (130-400); RDW Coefficient of Variation 13.6 % (11.5-14.5); RDW Standard Deviation 44.9 fL (36.4-46.3); Red Blood Count 4.27 M/uL (4.7-6.1)
[2021-06-21] MEDS: MEROPENEM 1,000 MG in SYRINGE 0 ML IV SCH ×3 (06:49→21:42)
[2021-06-21 07:09] LABS: Basophils # (auto) 0.04 K/uL (0-0.2); Basophils % (auto) 0.2 %; Eosinophils # (auto) 0.19 K/uL (0-0.5); Eosinophils % (auto) 0.8 %; Immature Granulocytes # (auto) 0.98 K/uL (0.00-0.02); Immature Granulocytes % (auto) 4.2 %; Lymphocytes # (auto) 1.79 K/uL (1.2-3.4); Lymphocytes % (auto) 7.6 %; Monocytes # (auto) 2.12 K/uL (0.11-0.59); Neutrophils # (auto) 18.48 K/uL (1.4-6.5); Neutrophils % (auto) 78.2 %
[2021-06-21 07:46] LABS: Est GFR (Non-African American) 87.1 ml/min; Potassium 4.3 mmol/L (3.5-5.1)
[2021-06-21 07:47] LABS: Calcium 8.1 mg/dl (8.5-10.1); Creatinine Clr Calc Pharmacy 92.4 ml/min; Magnesium 2.4 mg/dl (1.8-2.4)
[2021-06-21 08:09] LABS: Phosphorus 3.2 mg/dl (2.5-4.9)
[2021-06-21] MEDS: PANTOprazole 40 MG TAB PO SCH ×2 (08:18→21:40)
[2021-06-21] MEDS: LORATADINE 10 MG TAB PO SCH (08:18)
[2021-06-21] MEDS: CHOLECALCIFEROL 1,000 UNITS 25 MCG TAB PO SCH (08:18)
[2021-06-21] MEDS: FAMOTIDINE 20 MG TAB PO SCH ×2 (08:18→21:40)
[2021-06-21] MEDS: FINASTERIDE 5 MG TAB PO SCH (08:18)
[2021-06-21] MEDS: LIDOCAINE 5% 1 PATCH TD SCH (08:19)
[2021-06-21] MEDS: DOCUSATE SODIUM/SENNA 50/8.6MG TAB PO SCH ×2 (08:19→21:41)
[2021-06-21] MEDS: NSS + 20MEQ KCL 20 MEQ/1,000 ML BAG IV SCH (12:09)
--- NOTE | 2021-06-21 15:26 | Hospitalist Progress Note ---
Date of Service June 21, 2021 Assessment & Plan (1) Sepsis: Plan: Secondary to acute necrotizing pancreatitis On admission HR 117, WBC 39, lactate 3.0 CRP and prolactin were elevated too Has been receiving considerable amount of intravenous fluid Has been on intravenous meropenem Signs and symptoms are improving Blood and urine culture have been negative Has had fever of 38.0 last night and white counts remains elevated at 17.79 Clinically better, no more fever and no chills but white count increased to 20.88 Appreciate ID input and recommendation-no noticeable collection for aspiration, will change antibiotic to 1 g every 8 hourly and ultrasound to rule out pseudocyst if fever persisting or white cell count persisting Clinically much better but has had minimal temperature last night and also white count went up to 23,000 Will get ultrasound to rule out pseudocyst-Non diagnostic Likely to need to be transferred to tertiary care center for continued management Discussed with the [facility] [address] Transfer center Advised to have CT abd and Pelvis with contrast to r/o any abscess which may require IR intervention CT ordered (2) Acute necrotizing pancreatitis: Plan: This is a 75yo M with a PMH of HTN, HLD, peripheral neuropathy who presents with worsening abdominal pain x3 days. CT abd/pelvis with acute pancreatitis. Possible pancreatic necrosis and abscess/cyst formation No history of pancreatitis. Denies tobacco or alcohol use. Ultrasound did not show any gallstones but did show hepatic steatosis and lipid profile is unremarkable ER discussed potential transfer to [facility] with Dr. Aldridge who advised that treatment would likely be the same if kept at [facility] Appreciate GI input and recommendation Appreciate sustainability consultant input and recommendation His condition is a little better Improvement of LFTs, lipase, BUN and creatinine We will continue current management-n.p.o., IV fluids, pain medications as needed and antibiotic Prognosis remains poor Clinically little bit better today and has been tolerating clears orally Abdominal MRI showed acute necrotizing pancreatitis but no evidence of abscess elsewhere. 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 Abdominal pain is better but complains to back pain Clinically much better but white count increased and has had minimal fever Likely to need transfer to tertiary care center for further management-patient is in agreeable with that Elevated liver enzymes On admission Tbili 2.6, dbili 1, AST 286, ALT 631, alk phos 142, lipase 4,141 Has been improving and remains a stable Acute on chronic back pain Has been complaining of back pain which may be aggravated by acute necrotizing pancreatitis Will apply local Lidoderm patch and try to avoid any narcotics use We will try local diclofenac gel (3) Acute renal insufficiency: Plan: Unknown renal baseline but Cr 1.89 in setting of sepsis, necrotizing pancreatitis Continue to monitor with daily BMP Creatinine has been normalized to 1.26 as of 06/16/2021 Creatinine remains normal at 0.92 as of 06/17/2021 (4) Hypertension: Plan: Home meds include lisinopril- hctz, which we will hold at this point due to potential FRANKLIN and dehydration Blood pressure remains on the upper side at 154/94 today Blood pressure is controlled today (5) Hyperlipidemia: Plan: On statin at home (6) BPH (benign prostatic hyperplasia): Plan: Flomax HS Code status: FULL PCP: [facility] [place] Dispo: Admitted to ICU. Discharge planning ordered We will continue current management Admission and Anticipated Discharge Date Admission Date: June 15, 2021 Subjective 06/16/2021 The patient was seen and examined in ICU He complains to have abdominal distention and ongoing back pain Denies any nausea and or vomiting Bowel has not moved yet 06/17/2021 The patient was seen and examined in ICU He has been feeling a little better compared with yesterday Complains to have back pain which has been chronic and now is complicated by acute hemorrhagic pancreatitis He has been moving gas but no bowel movement No fever and no chills 06/18/2021 The patient was seen and examined in telemetry unit He has been complaining of back pain without radiation Denies any significant abdominal symptoms and no nausea and or vomiting He has been feeling cold with nasal congestion 06/19/2021 The patient was seen and examined in telemetry unit He improved a little bit but he still complains a lot of back pain Denies any acute shortness of breath, denies any nausea and or vomiting 06/20/2021 The patient was seen and examined in telemetry unit He has been feeling much better today Still has back pain but denies any abdominal pain, nausea and or vomiting No more fever and no chills 06/21/2021 The patient was seen and examined in telemetry unit He has been feeling much better and participated with PT and OT His abdominal pain is diminished but he still has the back pain Noted to have a temperature of 37.6 since last night Review of Systems Review of Systems: All systems reviewed and are unremarkable except as noted below Gastrointestinal: Abdominal distention with discomfort. Back pain Physical Exam Physical Exam: Lying in bed without any acute distress Constitutional: well developed, well nourished, + ill appearing and + well hydrated Eyes: PERRL, conjunctivae normal, anicteric sclerae ENMT: external ear and nose normal, oropharynx normal Neck: trachea midline, no thyromegaly Respiratory: normal respiratory effort, lungs clear to auscultation Cardiovascular: Rate/Rhythm: regular rate, regular rhythm and + tachycardic Heart Sounds: normal S1 and normal S2; no murmur Extremities: no edema Gastrointestinal (Abdomen): Inspection/Auscultation: + abdomen distended and normal bowel sounds Percussion/Palpation: + abdomen tender; no guarding, abdomen not rigid and abdomen not firm Neurologic: Alert awake and oriented x3. Generally weak but no focal sensory and motor deficit appreciated Lymphatic: no cervical or axillary lymphadenopathy Results & Data Results & Data ([facility]) Vital Signs (Past 12 Hours) Vital Signs Temp Pulse Pulse Resp BP BP Pulse Ox 06/21/21 13:28 37.6 C H 06/21/21 11:28 37.9 C H 86 18 127/69 99 06/21/21 08:00 98 H 06/21/21 07:41 37.1 C 88 18 162/82 H 96 Laboratory Results Short CBC 06/21/21 Range/Units 06:27 WBC 23.60 H (4.8-10.8) K/uL Hgb 13.4 L (14.0-18.0) g/dL Hct 39.0 L (42-52) % Plt Count 321 (130-400) K/uL BMP 06/21/21 06:27 Sodium 134 L Potassium 4.3 Chloride 103 Carbon Dioxide 25 BUN 14 Creatinine 0.82 Glucose 101 H Calcium 8.1 L Medications Administered Current Inpatient Medications Acetaminophen (Acetaminophen 325 Mg Tab) 325 mg PO Q6H PRN PRN Reason: Mild Pain Stop: 07/19/21 23:28 Last Admin: 06/20/21 00:22 Dose: 325 mg Documented by: Albuterol (Albuterol 0.083% Nebu Soln 3 Ml Vial) 2.5 mg NEB Q6R PRN PRN Reason: Congestion Stop: 07/18/21 09:02 Last Admin: 06/18/21 09:56 Dose: 2.5 mg Documented by: Atorvastatin Calcium (Atorvastatin 20 Mg Tab) 20 mg PO HS [facility] Stop: 07/15/21 20:59 Last Admin: 06/20/21 21:35 Dose: 20 mg Documented by: Diclofenac Sodium (Diclofenac Sod 1% Gel 100 Gm Tube) 2 gm EXT Q6H PRN PRN Reason: Pain Stop: 07/17/21 08:44 Last Admin: 06/20/21 14:32 Dose: 2 gm Documented by: Famotidine (Famotidine 20 Mg Tab) 20 mg PO BID [facility] Stop: 07/15/21 20:59 Last Admin: 06/21/21 08:18 Dose: 20 mg Documented by: Finasteride (Finasteride 5 Mg Tab) 5 mg PO QAM [facility] Stop: 07/16/21 08:59 Last Admin: 06/21/21 08:18 Dose: 5 mg Documented by: Heparin Sodium (Porcine) (Heparin Sod 5,000 Unit/0.5 Ml Vial) 5,000 units SQ Q12H [facility] Stop: 07/16/21 05:59 Last Admin: 06/21/21 06:37 Dose: Not Given Documented by: Hydromorphone HCl (Hydromorphone Inj 0.5 Mg/0.5 Ml Syr) 0.5 mg IV Q6H PRN PRN Reason: Pain Stop: 07/04/21 21:45 Potassium Chloride/Sodium Chloride (Normal Saline W/20 Meq Kcl) 20 meq in 1,000 mls @ 75 mls/hr IV .[id number] [facility] Stop: 07/18/21 08:14 Last Admin: 06/21/21 12:09 Dose: 75 mls/hr Documented by: Meropenem 1,000 mg/ Syringe 20 mls @ 2 mls/min IV Q8H [facility]; Protocol Stop: 06/30/21 21:59 Last Admin: 06/21/21 14:37 Dose: 2 mls/min Documented by: Lidocaine (Lidocaine 5% 1 Patch) 1 patch TD [facility] Stop: 07/18/21 11:29 Last Admin: 06/21/21 08:19 Dose: Not Given Documented by: Loratadine ([facility] 10 Mg Tab) [facility] Stop: 07/18/21 11:14 Last Admin: 06/21/21 08:18 Dose: 10 mg Documented by: Miscellaneous (Remove Lidoderm Patch) 1 ea N/A DAILY@2100 [facility] Stop: 07/18/21 20:59 Last Admin: 06/20/21 21:35 Dose: Not Given Documented by: Miscellaneous Information (Meropenem Consult Acitve) 1 ea N/A UD PRN PRN Reason: Consult Stop: 07/15/21 14:21 Oxycodone HCl (Oxycodone Hcl Ir 5 Mg Tab (Immediate Release)) 5 mg PO Q4H PRN PRN Reason: Pain Stop: 07/04/21 21:45 Last Admin: 06/20/21 22:25 Dose: 5 mg Documented by: Pantoprazole Sodium (Pantoprazole 40 Mg Tab) 40 mg PO BID [facility] Stop: 07/19/21 10:59 Last Admin: 06/21/21 08:18 Dose: 40 mg Documented by: Polyethylene Glycol (Polyethylene (Miralax) 17 Gm Pack) 17 gm PO DAILY PRN PRN Reason: Constipation Stop: 07/20/21 21:43 Senna/Docusate Sodium (Docusate Sodium/Senna 50/8.6mg Tab) 1 tab PO BID [facility] Stop: 07/20/21 21:44 Last Admin: 06/21/21 08:19 Dose: 1 tab Documented by: Tamsulosin HCl (Tamsulosin Hcl 0.4 Mg Cap) 0.4 mg PO HS [facility] Stop: 07/15/21 20:59 Last Admin: 06/20/21 21:35 Dose: 0.4 mg Documented by: Vitamin D (Cholecalciferol 1,000 Units 25 Mcg Tab) 2,000 units PO QAM [facility] Stop: 07/18/21 08:59 Last Admin: 06/21/21 08:18 Dose: 2,000 units Documented by:
--- NOTE | 2021-06-21 15:32 | Ultrasound Report ---
ABDOMINAL ULTRASOUND, RIGHT UPPER QUADRANT HISTORY: Pancreatic pseudocyst. COMPARISON: Abdominal ultrasound 06/15/2021. Abdominal MRI 06/18/2021. FINDINGS: Pancreas: Obscured by overlying bowel gas. Liver: The liver is echogenic consistent with fatty change. Trace perihepatic fluid noted. The main p ortal vein is patent. Gallbladder: The gallbladder is contracted. There is mild gallbladder wall thickening, unchanged. Sma ll amount of echogenic sludge is noted. Negative sonographic Isaacs sign. CBD: 4 mm. Right kidney: No hydronephrosis. IMPRESSION: 1. Hepatic steatosis. 2. Trace perihepatic fluid. 3. The pancreas was obscured by overlying bowel gas. 4. The gallbladder is contracted. There is mild gallbladder wall thickening with a small amount of sl udge. This is similar to the prior study. ACT 112: Negative or not required by law. Electronically signed by: Romeo Feliz M.D. 06/21/2021 3:30 PM
[2021-06-21] MEDS: oxyCODONE HCL IR 5 MG TAB (IMMEDIATE RELEASE) PO PRN (16:28)
[2021-06-21] MEDS ORDERED: OPTIRAY 320 100ml IV ONE (19:38)
--- NOTE | 2021-06-21 20:07 | CT Scan Report ---
ABDOMEN AND PELVIS CT WITH IV AND ORAL CONTRAST CT DOSE: 796.64 mGy.cm HISTORY: Pancreatic collection. R/O Intra-abdominal abscess TECHNIQUE: Multiaxial CT images of the abdomen and pelvis were performed following the use of intrave nous and oral contrast. A dose lowering technique was utilized adhering to the principles of ALARA. COMPARISON STUDY: Abdominal ultrasound 06/21/2021. Abdominal MRI 06/18/2021. Abdomen and pelvis CT 2020. FINDINGS: There are trace right and small left pleural effusions, unchanged. Bibasilar densities favo r subsegmental atelectasis. No pneumoperitoneum. No pneumatosis. No suspicious lytic or blastic osseo us lesions. The liver, spleen, and adrenal glands unremarkable. Subcentimeter bilateral renal hypoden se lesions are technically too small to characterize but favor cysts. There is mild bilateral perinep hric edema, unchanged. No hydronephrosis. Normal caliber abdominal aorta. No retroperitoneal lymphade nopathy. The main portal vein and splenic vein are patent. Partial thrombus of the superior mesenteri c vein remains unchanged. Normal gallbladder. Peripancreatic edema/fluid has progressed in the interv al. There is heterogeneous enhancement within the uncinate process of the pancreas as well as the bod y of the pancreas suggestive of necrosis. This is similar to the prior study. Increase in size in the 3.7 cm peripancreatic collection superior to the pancreas best seen on image 141. Small focus of gas at the pancreatic head. This favors a duodenal diverticula. This remains unchanged. Distended proxim al duodenum, unchanged with thickening of the second and third portions of the duodenum. This likely reactive to the pancreatitis and results in a partial duodenal obstruction. Contrast does extend into the remaining small bowel loops. Therefore, no evidence for high-grade obstruction. There is gas wit hin the bladder lumen likely due to prior catheterization. The prostate gland is mildly enlarged. The re is a small amount of ascites present. Colonic diverticulosis. No evidence for acute diverticulitis . Mild thickening at the hepatic flexure of the colon is likely reactive to the pancreatitis. Normal appendix. IMPRESSION: 1. Redemonstration of the acute pancreatitis with progressive peripancreatic edema/fluid and slight i ncrease in size in 3.7 cm peripancreatic cyst. 2. Heterogeneous enhancement within the body and uncinate process of the pancreas is again noted cons istent with pancreatic necrosis. 3. No change in the partially thrombosed superior mesenteric vein. 4. Low-grade partial duodenal obstruction which is likely reactive to the acute pancreatitis. This re aidee unchanged. 5. Trace right and small left pleural effusions, unchanged. 6. Additional findings as described above. ACT 112: Negative or not required by law. Electronically signed by: Romeo Feliz M.D. 06/21/2021 8:06 PM
[2021-06-21] MEDS: ATORVASTATIN 20 MG TAB PO SCH (21:40)
[2021-06-21] MEDS: TAMSULOSIN HCL 0.4 MG CAP PO SCH (21:40)
[2021-06-21] MEDS ORDERED: LACTATED RINGER'S 1,000 ML IV ONE (22:50)
--- NOTE | 2021-06-21 22:54 | Communication Note ---
Date of Service: June 21, [address] Reed (AM provider) to follow-up on CT abdomen pelvis results requested due to increasing leukocytosis although patient comfortable. As per AM provider, transfer to [facility] if abscess noted on repeat CT. CT abdomen pelvis : 1. Redemonstration of the acute pancreatitis with progressive peripancreatic edema/fluid and slight increase in size in 3.7 cm peripancreatic cyst. 2. Heterogeneous enhancement within the body and uncinate process of the pancreas is again noted consistent with pancreatic necrosis. 3. No change in the partially thrombosed superior mesenteric vein. 4. Low-grade partial duodenal obstruction which is likely reactive to the acute pancreatitis. This remains unchanged. 5. Trace right and small left pleural effusions, unchanged. Change IVF to LR S at 150 cc/h. Will request AM provider to relay updated CT results to GI specialist vision care associate in a.m.
[2021-06-22] MEDS: LACTATED RINGER'S 1,000 ML IV SCH ×2 (01:16→08:06)
[2021-06-22] MEDS: MEROPENEM 1,000 MG in SYRINGE 0 ML IV SCH ×3 (05:44→21:32)
[2021-06-22] MEDS: HEPARIN SOD 5,000 UNIT/0.5 ML VIAL SQ SCH (05:45)
[2021-06-22 06:37] LABS: Basophils # (auto) 0.02 K/uL (0-0.2); Basophils % (auto) 0.1 %; Eosinophils # (auto) 0.18 K/uL (0-0.5); Eosinophils % (auto) 0.8 %; Hematocrit (blood only) 37.4 % (42-52); Hemoglobin 12.6 g/dL (14.0-18.0); Immature Granulocytes # (auto) 0.47 K/uL (0.00-0.02); Lymphocytes # (auto) 1.54 K/uL (1.2-3.4); Lymphocytes % (auto) 6.7 %; Mean Corpuscular Hemoglobin 30.7 pg (25-34); Mean Corpuscular Hgb Conc 33.7 g/dL (32-36); Mean Corpuscular Volume 91.2 fL (80-100); Mean Platelet Volume 9.5 fL (7.4-10.4); Monocytes # (auto) 1.92 K/uL (0.11-0.59); Monocytes % (auto) 8.4 %; Neutrophils # (auto) 18.83 K/uL (1.4-6.5); Platelet Count 354 K/uL (130-400); RDW Coefficient of Variation 13.4 % (11.5-14.5); RDW Standard Deviation 44.6 fL (36.4-46.3); White Blood Count 22.96 K/uL (4.8-10.8)
[2021-06-22 07:18] LABS: Albumin Level 2.2 gm/dl (3.4-5.0); Calcium 7.8 mg/dl (8.5-10.1); Creatinine Clr Calc Pharmacy 123.4 ml/min; Est GFR (Non-African American) 98.4 ml/min
[2021-06-22 07:21] LABS: Albumin Globulin Ratio 0.7 (0.9-2); Bilirubin,Total 1.2 mg/dl (0.2-1); Globulin 3.3 gm/dl (2.5-4.0); Total Protein 5.5 gm/dl (6.4-8.2)
[2021-06-22] MEDS: CHOLECALCIFEROL 1,000 UNITS 25 MCG TAB PO SCH (08:07)
[2021-06-22] MEDS: DOCUSATE SODIUM/SENNA 50/8.6MG TAB PO SCH ×2 (08:07→20:10)
[2021-06-22] MEDS: LORATADINE 10 MG TAB PO SCH (08:08)
[2021-06-22] MEDS: FAMOTIDINE 20 MG TAB PO SCH ×2 (08:08→20:09)
[2021-06-22] MEDS: FINASTERIDE 5 MG TAB PO SCH (08:08)
[2021-06-22] MEDS: PANTOprazole 40 MG TAB PO SCH ×2 (08:09→20:10)
[2021-06-22] MEDS: LIDOCAINE 5% 1 PATCH TD SCH (08:12)
--- NOTE | 2021-06-22 08:53 | Hospitalist Progress Note ---
Date of Service June 22, 2021 Assessment & Plan (1) Sepsis: Plan: Resuscitated. Secondary to acute necrotizing pancreatitis-resolving. Cont current antibiotic therapy. (2) Acute necrotizing pancreatitis: Plan: Etiology uncertain with some sludge seen on imaging. He is improved clinically and labwork is improved. He feels he can have his diet advanced today. Abdominal MRI showed acute necrotizing pancreatitis but no evidence of abscess. 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 Abdominal pain is better but complains to back pain still with elevated temp overnight-cont IV antibiotics. (3) Acute renal insufficiency: Plan: FRANKLIN 2/2 sepsis resolved with normal creatinine. (4) Hypertension: Plan: Sepsis on admission with FRANKLIN, as BP at goal cont holding lis/HCTZ (5) Mesenteric vein thrombosis: Plan: No evidence on imaging or clinically of any ischemic bowel. Placed on heparin today, If maintains stable H/H, will transition to oral anticoagulant. (6) Hyponatremia: Plan: Multifactorial including poor PO intake and dehydration related to sepsis and pancreatitis. Cont to monitor. (7) Acute exacerbation of chronic low back pain: Plan: Acute exacerbation of chronic lower back pain-reportedly same quality and dis tribution. Supportive care efforts. Encourage ambulation as tolerated. (8) BPH (benign prostatic hyperplasia): Plan: Cont home medication (9) DVT prophylaxis: Plan: heparin drip Full Code Dispo-uncertain, pending PT/OT recommendations. Malu Box DO [facility] Hospitalist Admission and Anticipated Discharge Date Admission Date: June 15, 2021 Subjective 75 yo M with chronic back pain admitted for acute necrotizing pancreatitis. Feels as though he is getting better overall this morning. Reports less abdominal pain but states he is having a flare of his chronic back pain Reports fatigue and SOB with exertion from "just going to the toilet and back" Feels good about progressing diet to solid food. Reports intermittent BMs, used laxatives, some soft stool today afebrile Review of Systems Review of Systems: All systems were reviewed and negative except as indicated in HPI above. Physical Exam Physical Exam: CONSTITUTIONAL: WNWD, vitals as above, generally well- appearing EYES: normal conjunctivae, no scleral icterus ENT: external ear and nose normal, MMM RESPIRATORY: clear to auscultation bilaterally, no crackles, rales or wheezes, normal respiratory effort CARDIOVASCULAR: regular rate and rhythm, S1 and 2 heard without murmurs, gallops or rubs, no JVD, no peripheral edema CHEST: inspection of chest was normal GASTROINTESTINAL: normal bowel sounds, soft, nontender, nondistended, slightly protuberant, no guarding. MUSCULOSKELETAL: strength 5/5 throughout, head is normocephalic and atraumatic SKIN: warm and dry NEUROLOGIC: No facial palsy, no dysarthria. CN 2-12 grossly intact, no sensory deficit, normal cognition, normal speech, no tremor PSYCHIATRIC: alert cooperative and oriented to person, place and time. Results & Data Results & Data ([facility]) Vital Signs (Past 12 Hours) Vital Signs Temp Pulse Pulse Resp BP BP Pulse Ox 06/22/21 07:52 37.1 C 90 18 162/81 H 96 06/22/21 03:45 37.4 C 89 20 158/81 H 97 06/22/21 00:13 37.2 C 89 20 158/76 H 96 06/21/21 22:19 77 Laboratory Results Short CBC 06/22/21 Range/Units 05:27 WBC 22.96 H (4.8-10.8) K/uL Hgb 12.6 L (14.0-18.0) g/dL Hct 37.4 L (42-52) % Plt Count 354 (130-400) K/uL BMP 06/22/21 05:27 Sodium 131 L Potassium 4.0 Chloride 99 Carbon Dioxide 24 BUN 11 Creatinine 0.61 Glucose 93 Calcium 7.8 L Liver Function 06/22/21 Range/Units 05:27 Total Bilirubin 1.2 H (0.2-1) mg/dl AST 64 H (15-37) U/L ALT 89 H (12-78) U/L Alkaline Phosphatase 93 (45-117) U/L Albumin 2.2 L (3.4-5.0) gm/dl Medications Administered Current Inpatient Medications Acetaminophen (Acetaminophen 325 Mg Tab) 325 mg PO Q6H PRN PRN Reason: Mild Pain Stop: 07/19/21 23:28 Last Admin: 06/20/21 00:22 Dose: 325 mg Documented by: Albuterol (Albuterol 0.083% Nebu Soln 3 Ml Vial) 2.5 mg NEB Q6R PRN PRN Reason: Congestion Stop: 07/18/21 09:02 Last Admin: 06/18/21 09:56 Dose: 2.5 mg Documented by: Atorvastatin Calcium (Atorvastatin 20 Mg Tab) 20 mg PO HS [facility] Stop: 07/15/21 20:59 Last Admin: 06/21/21 21:40 Dose: 20 mg Documented by: Diclofenac Sodium (Diclofenac Sod 1% Gel 100 Gm Tube) 2 gm EXT Q6H PRN PRN Reason: Pain Stop: 07/17/21 08:44 Last Admin: 06/20/21 14:32 Dose: 2 gm Documented by: Famotidine (Famotidine 20 Mg Tab) 20 mg PO BID [facility] Stop: 07/15/21 20:59 Last Admin: 06/22/21 08:08 Dose: 20 mg Documented by: Finasteride ([facility]asteride 5 Mg Tab) [facility] Stop: 07/16/21 08:59 Last Admin: 06/22/21 08:08 Dose: 5 mg Documented by: Heparin Sodium/Dextrose (Heparin Iv Adult Wt-Based Standard *No* Bolus Protocol) 1 ea IV Q15M [facility]; Protocol Stop: 06/22/21 14:45 Hydromorphone HCl (Hydromorphone Inj 0.5 Mg/0.5 Ml Syr) 0.5 mg IV Q6H PRN PRN Reason: Pain Stop: 07/04/21 21:45 Meropenem 1,000 mg/ Syringe 20 mls @ 2 mls/min IV Q8H [facility]; Protocol Stop: 06/30/21 21:59 Last Admin: 06/22/21 05:44 Dose: 2 mls/min Documented by: Heparin Sodium/Dextrose (Heparin Sodium/Dextrose) 25,000 units in 500 mls @ 0.02 mls/hr IV .Q24H [facility]; Protocol Stop: 07/22/21 13:14 Lidocaine (Lidocaine 5% 1 Patch) 1 patch TD [facility] Stop: 07/18/21 11:29 Last Admin: 06/22/21 08:12 Dose: Not Given Documented by: Loratadine (Loratadine 10 Mg Tab) [facility] Stop: 07/18/21 11:14 Last Admin: 06/22/21 08:08 Dose: 10 mg Documented by: Miscellaneous (Remove Lidoderm Patch) 1 ea N/A DAILY@2100 [facility] Stop: 07/18/21 20:59 Last Admin: 06/21/21 21:40 Dose: Not Given Documented by: Miscellaneous Information (Meropenem Consult Acitve) 1 ea N/A UD PRN PRN Reason: Consult Stop: 07/15/21 14:21 Oxycodone HCl (Oxycodone Hcl Ir 5 Mg Tab (Immediate Release)) 5 mg PO Q4H PRN PRN Reason: Pain Stop: 07/04/21 21:45 Last Admin: 06/21/21 16:28 Dose: 5 mg Documented by: Pantoprazole Sodium (Pantoprazole 40 Mg Tab) 40 mg PO BID [facility] Stop: 07/19/21 10:59 Last Admin: 06/22/21 08:09 Dose: 40 mg Documented by: Polyethylene Glycol (Polyethylene (Miralax) 17 Gm Pack) 17 gm PO DAILY PRN PRN Reason: Constipation Stop: 07/20/21 21:43 Senna/Docusate Sodium (Docusate Sodium/Senna 50/8.6mg Tab) 1 tab PO BID [facility] Stop: 07/20/21 21:44 Last Admin: 06/22/21 08:07 Dose: 1 tab Documented by: Tamsulosin HCl (Tamsulosin Hcl 0.4 Mg Cap) 0.4 mg PO HS [facility] Stop: 07/15/21 20:59 Last Admin: 06/21/21 21:40 Dose: 0.4 mg Documented by: Vitamin D (Cholecalciferol 1,000 Units 25 Mcg Tab) 2,000 units PO QAM [facility] Stop: 07/18/21 08:59 Last Admin: 06/22/21 08:07 Dose: 2,000 units Documented by:
[2021-06-22] MEDS: NSS + 20MEQ KCL 20 MEQ/1,000 ML BAG IV SCH (09:44)
[2021-06-22] MEDS: Heparin IV Adult Wt-Based Standard *NO* Bolus Protocol IV SCH ×8 (13:05→17:12)
[2021-06-22 14:06] LABS: Basophils # (auto) 0.04 K/uL (0-0.2); Basophils % (auto) 0.2 %; Eosinophils # (auto) 0.11 K/uL (0-0.5); Eosinophils % (auto) 0.5 %; Hematocrit (blood only) 36.5 % (42-52); Hemoglobin 12.6 g/dL (14.0-18.0); Immature Granulocytes # (auto) 0.41 K/uL (0.00-0.02); Immature Granulocytes % (auto) 1.9 %; Lymphocytes # (auto) 1.08 K/uL (1.2-3.4); Lymphocytes % (auto) 5.1 %; Mean Corpuscular Hemoglobin 31.3 pg (25-34); Mean Corpuscular Volume 90.6 fL (80-100); Mean Platelet Volume 9.2 fL (7.4-10.4); Monocytes # (auto) 1.74 K/uL (0.11-0.59); Monocytes % (auto) 8.1 %; Neutrophils # (auto) 17.98 K/uL (1.4-6.5); Neutrophils % (auto) 84.2 %; Platelet Count 362 K/uL (130-400); RDW Coefficient of Variation 13.2 % (11.5-14.5); RDW Standard Deviation 43.9 fL (36.4-46.3); Red Blood Count 4.03 M/uL (4.7-6.1); White Blood Count 21.36 K/uL (4.8-10.8)
[2021-06-22 14:17] LABS: INR 1.1 (0.9-1.1); Mean Corpuscular Hgb Conc 34.5 g/dL (32-36); Partial Thromboplastin Ratio 1.1; Partial Thromboplastin Time 29.8 Seconds (21.0-31.0); Prothrombin Time 11.5 Seconds (9.0-12.0)
[2021-06-22] MEDS: HEPARIN SODIUM/DEXTROSE 25,000 UNITS/500 ML BAG IV SCH (15:28)
[2021-06-22] MEDS: ATORVASTATIN 20 MG TAB PO SCH (20:09)
[2021-06-22] MEDS: TAMSULOSIN HCL 0.4 MG CAP PO SCH (20:10)
[2021-06-22 22:23] LABS: Partial Thromboplastin Time 53.2 Seconds (21.0-31.0)
[2021-06-23] MEDS: oxyCODONE HCL IR 5 MG TAB (IMMEDIATE RELEASE) PO PRN ×2 (01:08→19:23)
[2021-06-23] MEDS: MEROPENEM 1,000 MG in SYRINGE 0 ML IV SCH ×3 (05:32→22:20)
[2021-06-23] MEDS: HEPARIN SODIUM/DEXTROSE 25,000 UNITS/500 ML BAG IV SCH ×2 (05:32→22:21)
[2021-06-23 06:16] LABS: Basophils # (auto) 0.03 K/uL (0-0.2); Basophils % (auto) 0.2 %; Eosinophils # (auto) 0.25 K/uL (0-0.5); Eosinophils % (auto) 1.4 %; Hematocrit (blood only) 35.7 % (42-52); Hemoglobin 12.2 g/dL (14.0-18.0); Immature Granulocytes # (auto) 0.33 K/uL (0.00-0.02); Immature Granulocytes % (auto) 1.8 %; Lymphocytes # (auto) 1.87 K/uL (1.2-3.4); Lymphocytes % (auto) 10.1 %; Mean Corpuscular Hgb Conc 34.2 g/dL (32-36); Mean Corpuscular Volume 90.8 fL (80-100); Mean Platelet Volume 9.2 fL (7.4-10.4); Monocytes # (auto) 1.63 K/uL (0.11-0.59); Monocytes % (auto) 8.8 %; Neutrophils # (auto) 14.37 K/uL (1.4-6.5); Neutrophils % (auto) 77.7 %; Platelet Count 349 K/uL (130-400); RDW Coefficient of Variation 13.1 % (11.5-14.5); RDW Standard Deviation 43.4 fL (36.4-46.3); Red Blood Count 3.93 M/uL (4.7-6.1); White Blood Count 18.48 K/uL (4.8-10.8)
[2021-06-23 06:38] LABS: Partial Thromboplastin Ratio 1.9
[2021-06-23 06:51] LABS: Partial Thromboplastin Time 49.6 Seconds (21.0-31.0)
[2021-06-23 06:54] LABS: BUN Creatinine Ratio 17.9 (10-20); Calcium 8.3 mg/dl (8.5-10.1); Creatinine Clr Calc Pharmacy 103.1 ml/min; Est GFR (African American) 105.9 ml/min; Est GFR (Non-African American) 91.4 ml/min; Magnesium 2.3 mg/dl (1.8-2.4)
[2021-06-23 06:56] LABS: Phosphorus 3.9 mg/dl (2.5-4.9)
[2021-06-23] MEDS: PANTOprazole 40 MG TAB PO SCH ×2 (08:00→20:33)
[2021-06-23] MEDS: FINASTERIDE 5 MG TAB PO SCH (08:00)
[2021-06-23] MEDS: LORATADINE 10 MG TAB PO SCH (08:00)
[2021-06-23] MEDS: DOCUSATE SODIUM/SENNA 50/8.6MG TAB PO SCH ×2 (08:01→20:33)
[2021-06-23] MEDS: CHOLECALCIFEROL 1,000 UNITS 25 MCG TAB PO SCH (08:01)
[2021-06-23] MEDS: FAMOTIDINE 20 MG TAB PO SCH ×2 (08:01→20:33)
[2021-06-23] MEDS: LIDOCAINE 5% 1 PATCH TD SCH (08:04)
--- NOTE | 2021-06-23 14:17 | Hospitalist Progress Note ---
Date of Service June 23, 2021 Assessment & Plan (1) Sepsis: Plan: Resuscitated. Secondary to acute necrotizing pancreatitis-resolving. Cont current antibiotic therapy. (2) Acute necrotizing pancreatitis: Plan: Etiology uncertain with some sludge seen on imaging. He is improved clinically and leukocytosis continues to improve. Doing well on current diet. Abdominal MRI showed acute necrotizing pancreatitis but no evidence of abscess. 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. Heparin drip started yesterday. Cont Merrem for total 5 days. (3) Acute renal insufficiency: Plan: FRANKLIN 2/2 sepsis resolved with normal creatinine. (4) Hypertension: Plan: Sepsis on admission with FRANKLIN, lis/HCTZ was initially held, however, BP is up so will restart lisinopril 20mg daily (5) Mesenteric vein thrombosis: Plan: No evidence on imaging or clinically of any ischemic bowel. Placed on heparin 06/22 and doing well, no drop in Hb or concerning bleedng issues. If maintains stable H/H, will transition to oral anticoagulant. (6) Hyponatremia: Plan: Multifactorial including poor PO intake and dehydration related to sepsis and pancreatitis. Cont to monitor after diet restarted and oral intake is improving. (7) Acute exacerbation of chronic low back pain: Plan: Acute exacerbation of chronic lower back pain-reportedly same quality and distribution. Supportive care efforts-patient reports feeling better today. Encourage ambulation as tolerated. (8) BPH (benign prostatic hyperplasia): Plan: Cont home medication (9) DVT prophylaxis: Plan: heparin drip Full Code Dispo-uncertain, pending PT/OT recommendations. Malu Box DO [facility] Hospitalist Admission and Anticipated Discharge Date Admission Date: June 15, 2021 Subjective 75 yo M with chronic back pain admitted for acute necrotizing pancreatitis. Reports today as being his best day in the hospital yet. Denies abdominal pain and tolerating PO Afebrile No bleeding issues on the heparin drip overnight. Review of Systems Review of Systems: All systems were reviewed and negative except as indicated in HPI above. Physical Exam Physical Exam: CONSTITUTIONAL: WNWD, vitals as above, generally well- appearing EYES: normal conjunctivae, no scleral icterus ENT: external ear and nose normal, MMM RESPIRATORY: clear to auscultation bilaterally, no crackles, rales or wheezes, normal respiratory effort CARDIOVASCULAR: regular rate and rhythm, S1 and 2 heard without murmurs, gallops or rubs, no JVD, no peripheral edema CHEST: inspection of chest was normal GASTROINTESTINAL: normal bowel sounds, soft, nontender, nondistended, slightly protuberant, no guarding. MUSCULOSKELETAL: strength 5/5 throughout, head is normocephalic and atraumatic SKIN: warm and dry NEUROLOGIC: No facial palsy, no dysarthria. CN 2-12 grossly intact, no sensory deficit, normal cognition, normal speech, no tremor PSYCHIATRIC: alert cooperative and oriented to person, place and time. Results & Data Results & Data ([facility]) Vital Signs (Past 12 Hours) Vital Signs Temp Pulse Pulse Resp BP Pulse Ox 06/23/21 11:37 36.6 C 83 20 151/80 H 97 06/23/21 08:04 36.9 C 85 18 154/82 H 96 06/23/21 08:00 75 06/23/21 04:32 37.0 C 73 18 120/67 96 Laboratory Results Short CBC 06/23/21 Range/Units 05:48 WBC 18.48 H (4.8-10.8) K/uL Hgb 12.2 L (14.0-18.0) g/dL Hct 35.7 L (42-52) % Plt Count 349 (130-400) K/uL BMP 06/23/21 05:48 Sodium 132 L Potassium 4.0 Chloride 99 Carbon Dioxide 28 BUN 13 Creatinine 0.73 Glucose 116 H Calcium 8.3 L Medications Administered Current Inpatient Medications Acetaminophen (Acetaminophen 325 Mg Tab) 325 mg PO Q6H PRN PRN Reason: Mild Pain Stop: 07/19/21 23:28 Last Admin: 06/20/21 00:22 Dose: 325 mg Documented by: Albuterol (Albuterol 0.083% Nebu Soln 3 Ml Vial) 2.5 mg NEB Q6R PRN PRN Reason: Congestion Stop: 07/18/21 09:02 Last Admin: 06/18/21 09:56 Dose: 2.5 mg Documented by: Atorvastatin Calcium (Atorvastatin 20 Mg Tab) 20 mg PO HS [facility] Stop: 07/15/21 20:59 Last Admin: 06/22/21 20:09 Dose: 20 mg Documented by: Diclofenac Sodium (Diclofenac Sod 1% Gel 100 Gm Tube) 2 gm EXT Q6H PRN PRN Reason: Pain Stop: 07/17/21 08:44 Last Admin: 06/20/21 14:32 Dose: 2 gm Documented by: Famotidine (Famotidine 20 Mg Tab) 20 mg PO BID [facility] Stop: 07/15/21 20:59 Last Admin: 06/23/21 08:01 Dose: 20 mg Documented by: Finasteride ([facility] 5 Mg Tab) [facility] Stop: 07/16/21 08:59 Last Admin: 06/23/21 08:00 Dose: 5 mg Documented by: Hydromorphone HCl (Hydromorphone Inj 0.5 Mg/0.5 Ml Syr) 0.5 mg IV Q6H PRN PRN Reason: Pain Stop: 07/04/21 21:45 Meropenem 1,000 mg/ Syringe 20 mls @ 2 mls/min IV Q8H [facility]; Protocol Stop: 06/30/21 21:59 Last Admin: 06/23/21 05:32 Dose: 2 mls/min Documented by: Heparin Sodium/Dextrose (Heparin Sodium/Dextrose) 25,000 units in 500 mls @ 30 mls/hr IV .[id number] [facility]; Protocol Stop: 07/22/21 13:14 Last Titration: 06/23/21 06:54 Dose: 1,500 units/hr, 30 mls/hr Documented by: Lidocaine (Lidocaine 5% 1 Patch) 1 patch TD [facility] Stop: 07/18/21 11:29 Last Admin: 06/23/21 08:04 Dose: Not Given Documented by: Loratadine (Loratadine 10 Mg Tab) 10 mg PO [facility] Stop: 07/18/21 11:14 Last Admin: 06/23/21 08:00 Dose: 10 mg Documented by: Miscellaneous (Remove Lidoderm Patch) 1 ea N/A DAILY@2100 [facility] Stop: 07/18/21 20:59 Last Admin: 06/22/21 20:10 Dose: Not Given Documented by: Miscellaneous Information (Meropenem Consult Acitve) 1 ea N/A UD PRN PRN Reason: Consult Stop: 07/15/21 14:21 Oxycodone HCl (Oxycodone Hcl Ir 5 Mg Tab (Immediate Release)) 5 mg PO Q4H PRN PRN Reason: Pain Stop: 07/04/21 21:45 Last Admin: 06/23/21 01:08 Dose: 5 mg Documented by: Pantoprazole Sodium (Pantoprazole 40 Mg Tab) 40 mg PO BID [facility] Stop: 07/19/21 10:59 Last Admin: 06/23/21 08:00 Dose: 40 mg Documented by: Polyethylene Glycol (Polyethylene (Miralax) 17 Gm Pack) 17 gm PO DAILY PRN PRN Reason: Constipation Stop: 07/20/21 21:43 Senna/Docusate Sodium (Docusate Sodium/Senna 50/8.6mg Tab) 1 tab PO BID [facility] Stop: 07/20/21 21:44 Last Admin: 06/23/21 08:01 Dose: 1 tab Documented by: Tamsulosin HCl (Tamsulosin Hcl 0.4 Mg Cap) 0.4 mg PO HS [facility] Stop: 07/15/21 20:59 Last Admin: 06/22/21 20:10 Dose: 0.4 mg Documented by: Vitamin D (Cholecalciferol 1,000 Units 25 Mcg Tab) 2,000 units PO QAM [facility] Stop: 07/18/21 08:59 Last Admin: 06/23/21 08:01 Dose: 2,000 units Documented by:
[2021-06-23] MEDS ORDERED: lisinopril 20 MG TAB PO STA (14:32)
[2021-06-23] MEDS: TAMSULOSIN HCL 0.4 MG CAP PO SCH (20:33)
[2021-06-23] MEDS: POTASSIUM CITRATE 10 MEQ TAB PO SCH (20:33)
[2021-06-23] MEDS: ATORVASTATIN 20 MG TAB PO SCH (20:33)
[2021-06-24] MEDS: MEROPENEM 1,000 MG in SYRINGE 0 ML IV SCH ×3 (06:24→21:00)
[2021-06-24 06:41] LABS: Hematocrit (blood only) 36.6 % (42-52); Hemoglobin 12.6 g/dL (14.0-18.0); Mean Corpuscular Hemoglobin 31.3 pg (25-34); Mean Corpuscular Hgb Conc 34.4 g/dL (32-36); Mean Platelet Volume 9.1 fL (7.4-10.4); Platelet Count 421 K/uL (130-400); RDW Coefficient of Variation 13.2 % (11.5-14.5); RDW Standard Deviation 44.4 fL (36.4-46.3); Red Blood Count 4.02 M/uL (4.7-6.1); White Blood Count 17.07 K/uL (4.8-10.8)
[2021-06-24 06:54] LABS: Partial Thromboplastin Ratio 2.4
[2021-06-24 07:05] LABS: Partial Thromboplastin Time 63.3 Seconds (21.0-31.0)
[2021-06-24 07:14] LABS: Calcium 8.1 mg/dl (8.5-10.1); Creatinine Clr Calc Pharmacy 94.1 ml/min; Potassium 4.1 mmol/L (3.5-5.1)
[2021-06-24] MEDS: FAMOTIDINE 20 MG TAB PO SCH ×2 (10:02→20:14)
[2021-06-24] MEDS: LORATADINE 10 MG TAB PO SCH (10:02)
[2021-06-24] MEDS: POTASSIUM CITRATE 10 MEQ TAB PO SCH ×2 (10:03→20:10)
[2021-06-24] MEDS: lisinopril 20 MG TAB PO SCH (10:03)
[2021-06-24] MEDS: FINASTERIDE 5 MG TAB PO SCH (10:03)
[2021-06-24] MEDS: DOCUSATE SODIUM/SENNA 50/8.6MG TAB PO SCH ×2 (10:04→20:14)
[2021-06-24] MEDS: PANTOprazole 40 MG TAB PO SCH ×2 (10:04→20:09)
[2021-06-24] MEDS: CHOLECALCIFEROL 1,000 UNITS 25 MCG TAB PO SCH (10:05)
[2021-06-24] MEDS: LIDOCAINE 5% 1 PATCH TD SCH (10:05)
[2021-06-24] MEDS: oxyCODONE HCL IR 5 MG TAB (IMMEDIATE RELEASE) PO PRN (10:14)
--- NOTE | 2021-06-24 11:03 | Hospitalist Progress Note ---
Date of Service June 24, 2021 Assessment & Plan (1) Sepsis: Plan: Resuscitated. Secondary to acute necrotizing pancreatitis-resolving. Cont current antibiotic therapy. Leukocytosis continues to improve. Remains afebrile and without abdominal pain. Tolerating PO. (2) Acute necrotizing pancreatitis: Plan: Etiology uncertain with some sludge seen on imaging. He is improved clinically and leukocytosis continues to improve. Doing well on current diet. Abdominal MRI showed acute necrotizing pancreatitis but no evidence of abscess. 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. Cont IV abx for total 4 weeks per GI attending. (3) Acute renal insufficiency: Plan: FRANKLIN 2/2 sepsis resolved with normal creatinine. (4) Hypertension: Plan: Sepsis on admission with FRANKLIN, lis/HCTZ was initially held, however, BP is up so will restart lisinopril 20mg daily (5) Mesenteric vein thrombosis: Plan: No evidence on imaging or clinically of any ischemic bowel. Placed on heparin 06/22 and doing well, no drop in Hb or concerning bleedng issues. Transition to apixaban. (6) Hyponatremia: Plan: Multifactorial including poor PO intake and dehydration related to sepsis and pancreatitis. Cont to monitor after diet restarted and oral intake is improving. (7) Acute exacerbation of chronic low back pain: Plan: Acute exacerbation of chronic lower back pain-reportedly same quality and distribution. Supportive care efforts-patient reports feeling better today. Encourage ambulation as tolerated. (8) BPH (benign prostatic hyperplasia): Plan: Cont home medication (9) DVT prophylaxis: Plan: heparin drip Full Code Dispo-likely to home with HH in am. Will need IV antibiotics but will consider ertapenem instead of merrem if pseudomonal coverage not needed as this is a once daily dosed medication. Will try to discuss with ID further. Malu [facility] and [facility]tic[facility]ated Discharge Date Admission Date: June 15, 2021 Subjective 75 yo M with chronic back pain admitted for acute necrotizing pancreatitis. Denies abdominal pain and tolerating PO Discussed plan with Dr. Hale of GI who wants 4 weeks total of IV abx PICC consent signed but us-guided line in place. no bleeding issues on the heparin--will transition to apixaban tonight. Review of Systems Review of Systems: All systems were reviewed and negative except as indicated in HPI above. Physical Exam Physical Exam: CONSTITUTIONAL: WNWD, vitals as above, generally well- appearing EYES: normal conjunctivae, no scleral icterus ENT: external ear and nose normal, MMM RESPIRATORY: clear to auscultation bilaterally, no crackles, rales or wheezes, normal respiratory effort CARDIOVASCULAR: regular rate and rhythm, S1 and 2 heard without murmurs, gallops or rubs, no JVD, no peripheral edema CHEST: inspection of chest was normal GASTROINTESTINAL: normal bowel sounds, soft, nontender, nondistended, slightly protuberant, no guarding. MUSCULOSKELETAL: strength 5/5 throughout, head is normocephalic and atraumatic SKIN: warm and dry NEUROLOGIC: No facial palsy, no dysarthria. CN 2-12 grossly intact, no sensory deficit, normal cognition, normal speech, no tremor PSYCHIATRIC: alert cooperative and oriented to person, place and time. Results & Data Results & Data ([facility]) Vital Signs (Past 12 Hours) Vital Signs Temp Pulse Resp BP BP Pulse Ox 06/24/21 07:46 36.8 C 78 18 130/81 94 06/24/21 00:12 37.2 C 79 18 129/63 93 Laboratory Results Short CBC 06/24/21 Range/Units 06:13 WBC 17.07 H (4.8-10.8) K/uL Hgb 12.6 L (14.0-18.0) g/dL Hct 36.6 L (42-52) % Plt Count 421 H (130-400) K/uL BMP 06/24/21 06:13 Sodium 129 L Potassium 4.1 Chloride 98 Carbon Dioxide 26 BUN 12 Creatinine 0.80 Glucose 107 H Calcium 8.1 L Medications Administered Current Inpatient Medications Acetaminophen (Acetaminophen 325 Mg Tab) 325 mg PO Q6H PRN PRN Reason: Mild Pain Stop: 07/19/21 23:28 Last Admin: 06/20/21 00:22 Dose: 325 mg Documented by: Albuterol (Albuterol 0.083% Nebu Soln 3 Ml Vial) 2.5 mg NEB Q6R PRN PRN Reason: Congestion Stop: 07/18/21 09:02 Last Admin: 06/18/21 09:56 Dose: 2.5 mg Documented by: Atorvastatin Calcium (Atorvastatin 20 Mg Tab) 20 mg PO HS [facility] Stop: 07/15/21 20:59 Last Admin: 06/23/21 20:33 Dose: 20 mg Documented by: Diclofenac Sodium (Diclofenac Sod 1% Gel 100 Gm Tube) 2 gm EXT Q6H PRN PRN Reason: Pain Stop: 07/17/21 08:44 Last Admin: 06/20/21 14:32 Dose: 2 gm Documented by: Famotidine (Famotidine 20 Mg Tab) 20 mg PO BID [facility] Stop: 07/15/21 20:59 Last Admin: 06/24/21 10:02 Dose: 20 mg Documented by: Finasteride (Finasteride 5 Mg Tab) 5 mg PO [facility] Stop: 07/16/21 08:59 Last Admin: 06/24/21 10:03 Dose: 5 mg Documented by: Meropenem 1,000 mg/ Syringe 20 mls @ 2 mls/min IV Q8H [facility]; Protocol Stop: 06/25/21 21:59 Last Admin: 06/24/21 06:24 Dose: 2 mls/min Documented by: Heparin Sodium/Dextrose (Heparin Sodium/Dextrose) 25,000 units in 500 mls @ 30 mls/hr IV .[id number] [facility]; Protocol Stop: 07/22/21 13:14 Last Titration: 06/24/21 07:09 Dose: 1,500 units/hr, 30 mls/hr Documented by: Lidocaine (Lidocaine 5% 1 Patch) 1 patch TD [facility] Stop: 07/18/21 11:29 Last Admin: 06/24/21 10:05 Dose: Not Given Documented by: Lisinopril (Lisinopril 20 Mg Tab) 20 mg PO [facility] Stop: 07/24/21 08:59 Last Admin: 06/24/21 10:03 Dose: 20 mg Documented by: Loratadine (Loratadine 10 Mg Tab) 10 mg PO [facility] Stop: 07/18/21 11:14 Last Admin: 06/24/21 10:02 Dose: 10 mg Documented by: Miscellaneous (Remove Lidoderm Patch) 1 ea N/A DAILY@2100 [facility] Stop: 07/18/21 20:59 Last Admin: 06/23/21 20:34 Dose: Not Given Documented by: Miscellaneous Information (Meropenem Consult Acitve) 1 ea N/A UD PRN PRN Reason: Consult Stop: 08/17/21 21:59 Oxycodone HCl (Oxycodone Hcl Ir 5 Mg Tab (Immediate Release)) 5 mg PO Q4H PRN PRN Reason: Pain Stop: 07/04/21 21:45 Last Admin: 06/24/21 10:14 Dose: 5 mg Documented by: Pantoprazole Sodium (Pantoprazole 40 Mg Tab) 40 mg PO BID [facility] Stop: 07/19/21 10:59 Last Admin: 06/24/21 10:04 Dose: 40 mg Documented by: Polyethylene Glycol (Polyethylene (Miralax) 17 Gm Pack) 17 gm PO DAILY PRN PRN Reason: Constipation Stop: 07/20/21 21:43 Potassium Citrate (Potassium Citrate 10 Meq Tab) 10 meq PO BID [facility] Stop: 07/23/21 20:59 Last Admin: 06/24/21 10:03 Dose: 10 meq Documented by: Senna/Docusate Sodium (Docusate Sodium/Senna 50/8.6mg Tab) 1 tab PO BID [facility] Stop: 07/20/21 21:44 Last Admin: 06/24/21 10:04 Dose: 1 tab Documented by: Tamsulosin HCl (Tamsulosin Hcl 0.4 Mg Cap) 0.4 mg PO HS [facility] Stop: 07/15/21 20:59 Last Admin: 06/23/21 20:33 Dose: 0.4 mg Documented by: Vitamin D (Cholecalciferol 1,000 Units 25 Mcg Tab) 2,000 units PO QAM [facility] Stop: 07/18/21 08:59 Last Admin: 06/24/21 10:05 Dose: 2,000 units Documented by:
[2021-06-24] MEDS: HEPARIN SODIUM/DEXTROSE 25,000 UNITS/500 ML BAG IV SCH (14:43)
[2021-06-24] MEDS: APIXABAN 5 MG TABLET PO SCH (20:09)
[2021-06-24] MEDS: ATORVASTATIN 20 MG TAB PO SCH (20:09)
[2021-06-24] MEDS: TAMSULOSIN HCL 0.4 MG CAP PO SCH (20:10)
[2021-06-25] MEDS: MEROPENEM 1,000 MG in SYRINGE 0 ML IV SCH (05:27)
[2021-06-25 07:35] LABS: Hemoglobin 12.9 g/dL (14.0-18.0); Mean Corpuscular Hemoglobin 31.9 pg (25-34); Mean Corpuscular Hgb Conc 34.9 g/dL (32-36); Mean Corpuscular Volume 91.4 fL (80-100); Mean Platelet Volume 8.9 fL (7.4-10.4); Platelet Count 452 K/uL (130-400); RDW Coefficient of Variation 13.1 % (11.5-14.5); RDW Standard Deviation 44.1 fL (36.4-46.3); Red Blood Count 4.05 M/uL (4.7-6.1); White Blood Count 12.93 K/uL (4.8-10.8)
[2021-06-25 08:05] LABS: Calcium 8.6 mg/dl (8.5-10.1); Est GFR (African American) 94.6 ml/min; Est GFR (Non-African American) 81.6 ml/min; Potassium 4.3 mmol/L (3.5-5.1)
[2021-06-25] MEDS ORDERED: ERTAPENEM CONSULT ACTIVE PRN (08:39)
[2021-06-25] MEDS: APIXABAN 5 MG TABLET PO SCH (09:02)
[2021-06-25] MEDS: PANTOprazole 40 MG TAB PO SCH (09:03)
[2021-06-25] MEDS: CHOLECALCIFEROL 1,000 UNITS 25 MCG TAB PO SCH (09:03)
[2021-06-25] MEDS: LIDOCAINE 5% 1 PATCH TD SCH (09:04)
[2021-06-25] MEDS: POTASSIUM CITRATE 10 MEQ TAB PO SCH (09:05)
[2021-06-25] MEDS: FINASTERIDE 5 MG TAB PO SCH (09:05)
[2021-06-25] MEDS: lisinopril 20 MG TAB PO SCH (09:06)
[2021-06-25] MEDS: LORATADINE 10 MG TAB PO SCH (09:06)
[2021-06-25] MEDS: DOCUSATE SODIUM/SENNA 50/8.6MG TAB PO SCH (09:07)
[2021-06-25] MEDS: oxyCODONE HCL IR 5 MG TAB (IMMEDIATE RELEASE) PO PRN (09:49)
[2021-06-25] MEDS: FAMOTIDINE 20 MG TAB PO SCH (10:28)
[2021-06-25] MEDS ORDERED: ERTAPENEM SODIUM 1,000 MG in SODIUM CHLORIDE 0.9% 50 ML IV SCH (14:00)
--- NOTE | 2021-06-25 14:37 | Discharge Summary ---
Date of Service June 25, 2021 Admission HPI Per Admitting Provider This is a 75yo M with a PMH of HTN, HLD, peripheral neuropathy who presents with worsening abdominal pain x3 days. Endorses diffuse sharp 10/10 abdominal pain that is constant and most painful in epigastric region with radiation to back. Not currently nauseated but endorses nausea with a few episodes of emesis 2 nights ago that were dark in color, described as black. No recurrent emesis since then. Poor appetite. Pain persisted at home but patient did not take any medication for it. Patient denies any history of pancreatitis. Is not smoking or drinking alcohol at this time. Remote history. Does have history of hyperlipidemia for which she is taking a statin. Is a [facility] patient of [facility]. Denies fever, chills, lightheadedness, headache, chest pain, shortness of breath, dysuria, diarrhea or constipation. Admission Exam Per Admitting Provider General Appearance: vitals as above, NAD, sitting up in bed, appears acutely ill, conversing easily Head: normocephalic, atraumatic Eyes: normal inspection, PERRL, conjunctivae normal, anicteric sclerae ENT: external ear and nose normal, oropharynx normal Neck: normal visual inspection, trachea midline, no thyromegaly Respiratory: normal respiratory effort, lungs clear to auscultation, no wheeze, rales, rhonchi. No accessory muscle use Cardiovascular: tachycardic rate, regular rhythm, no murmur appreciated, normal peripheral pulses, no BLE edema. Vessels: no JVD Chest: normal inspection of chest Abdomen/GI: normal bowel sounds, soft, diffuse TTP, no hepatosplenomegaly Extremities/Musculoskeletal: no cyanosis or clubbing, extremities motor strength 5/5 Neurologic: PERRL, EOMI, accommodation nl, no face palsy, no dysarthria, CN's II-XI intact bilaterally and moves all extremities Psychiatric: A+Ox3, euthymic affect Skin: no rashes, normal color, warm/dry Principal Diagnosis Sepsis Acute necrotizing pancreatitis Acute renal insufficiency Mesenteric vein thrombosis Hyponatremia Chronic low back pain Discharge Exam General Appearance: vitals as above, NAD Head: normocephalic, atraumatic Eyes: normal inspection, conjunctivae normal, anicteric sclerae ENT: external ear and nose normal, oropharynx normal Neck: normal visual inspection, trachea midline, no thyromegaly Respiratory: normal respiratory effort, lungs clear to auscultation, no wheeze, rales, rhonchi. No accessory muscle use Cardiovascular: regular rate, regular rhythm, no murmur appreciated, normal peripheral pulses, no BLE edema. Vessels: no JVD Chest: normal inspection of chest Abdomen/GI: normal bowel sounds, soft, nontender to palpation nondistended Extremities/Musculoskeletal: no cyanosis or clubbing, extremities motor strength 5/5, ambulatory Neurologic: no gross focal deficits Psychiatric: A+Ox3, euthymic affect Skin: no rashes, normal color, warm/dry Discharge Data Allergies Allergy/AdvReac Type Severity Reaction Status Date / Time No Known Allergies Allergy Verified 06/15/21 10:29 Consultations 06/15/21 13:20 ED Decision to Admit Stat 06/15/21 13:46 Consult Gastroenterology Routine 06/15/21 15:44 Consult Office Nurse Routine 06/19/21 14:46 Consult Infectious Diseases Routine Ordered Studies Laboratory Results WBC 12.93 K/uL (4.8-10.8) H 06/25/21 07:12 RBC 4.05 M/uL (4.7-6.1) L 06/25/21 07:12 Hgb 12.9 g/dL (14.0-18.0) L 06/25/21 07:12 POC Hgb 18.7 g/dl (14.0-18.0) H 06/15/21 09:01 Hct 37.0 % (42-52) L 06/25/21 07:12 POC Hct 55 % (42-52) H 06/15/21 09:01 MCV 91.4 fL (80-100) 06/25/21 07:12 MCH 31.9 pg (25-34) 06/25/21 07:12 MCHC 34.9 g/dL (32-36) 06/25/21 07:12 RDW Std Deviation 44.1 fL (36.4-46.3) 06/25/21 07:12 RDW Coeff of Yinka 13.1 % (11.5-14.5) 06/25/21 07:12 Plt Count 452 K/uL (130-400) H 06/25/21 07:12 MPV 8.9 fL (7.4-10.4) 06/25/21 07:12 Immature Gran % (Auto) 1.8 % 06/23/21 05:48 Neut % (Auto) 77.7 % 06/23/21 05:48 Lymph % (Auto) 10.1 % 06/23/21 05:48 Elk % (Auto) 8.8 % 06/23/21 05:48 Eos % (Auto) 1.4 % 06/23/21 05:48 Baso % (Auto) 0.2 % 06/23/21 05:48 Neut # (Auto) 14.37 K/uL (1.4-6.5) H 06/23/21 05:48 Lymph # (Auto) 1.87 K/uL (1.2-3.4) 06/23/21 05:48 Elk # (Auto) 1.63 K/uL (0.11-0.59) H 06/23/21 05:48 Eos # (Auto) 0.25 K/uL (0-0.5) 06/23/21 05:48 Baso # (Auto) 0.03 K/uL (0-0.2) 06/23/21 05:48 Immature Gran # (Auto) 0.33 K/uL (0.00-0.02) H 06/23/21 05:48 RBC Morphology Unremarkable 06/17/21 04:29 ESR 16 mm/hr (0-20) 06/15/21 16:20 PT 11.5 Seconds (9.0-12.0) 06/22/21 13:44 INR 1.1 (0.9-1.1) 06/22/21 13:44 APTT 63.3 Seconds (21.0-31.0) H* 06/24/21 06:13 PTT Ratio 2.4 06/24/21 06:13 POC Sodium 134 mmol/L (135-144) L 06/15/21 09:01 Sodium 130 mmol/L (136-145) L 06/25/21 07:12 POC Potassium 3.8 mmol/L (3.3-5.0) 06/15/21 09:01 Potassium 4.3 mmol/L (3.5-5.1) 06/25/21 07:12 POC Chloride 96 mmol/L (101-112) L 06/15/21 09:01 Chloride 99 mmol/L (98-107) 06/25/21 07:12 Carbon Dioxide 25 mmol/L (21-32) 06/25/21 07:12 POC Total CO2 22 mmol/L (24-31) L 06/15/21 09:01 Anion Gap 7.0 (3-11) 06/25/21 07:12 POC Anion Gap 21.0 mmol/L (16-25) 06/15/21 09:01 POC BUN 40 mg/dl (7-18) H 06/15/21 09:01 BUN 12 mg/dl (7-18) 06/25/21 07:12 Creatinine 0.92 mg/dl (0.6-1.4) 06/25/21 07:12 POC Creatinine 1.7 mg/dl (0.6-1.3) H 06/15/21 09:01 Est Cr Clr Drug Dosing 79.0 ml/min 06/25/21 07:12 Est GFR ( Amer) 94.6 ml/min 06/25/21 07:12 Est GFR (Non-Af Amer) 81.6 ml/min 06/25/21 07:12 BUN/Creatinine Ratio 13.0 (10-20) 06/25/21 07:12 Glucose 109 mg/dl (70-99) H 06/25/21 07:12 POC Glucose 92 mg/dl (70-99) 06/16/21 20:45 POC Glucose (other) 148 mg/dl (70-99) H 06/15/21 09:01 Estimat Average Glucose 131 mg/dl 06/16/21 05:23 Hemoglobin A1c 6.2 % (4.5-5.6) H 06/16/21 05:23 Lactate 1.1 mmol/L (0.4-2.0) 06/18/21 06:46 Calcium 8.6 mg/dl (8.5-10.1) 06/25/21 07:12 POC Ioniz Calcium Leonard 1.02 mmol/l (1.12-1.32) L 06/15/21 09:01 Phosphorus 3.9 mg/dl (2.5-4.9) 06/23/21 05:48 Magnesium 2.3 mg/dl (1.8-2.4) 06/23/21 05:48 Total Bilirubin 1.2 mg/dl (0.2-1) H 06/22/21 05:27 Direct Bilirubin 0.6 mg/dl (0-0.2) H 06/17/21 04:29 AST 64 U/L (15-37) H 06/22/21 05:27 ALT 89 U/L (12-78) H 06/22/21 05:27 Alkaline Phosphatase 93 U/L (45-117) 06/22/21 05:27 Troponin I < 0.015 ng/ml (0-0.045) 06/15/21 08:53 C-Reactive Protein 22.00 mg/dl (0-0.29) H 06/17/21 04:29 Total Protein 5.5 gm/dl (6.4-8.2) L 06/22/21 05:27 Albumin 2.2 gm/dl (3.4-5.0) L 06/22/21 05:27 Globulin 3.3 gm/dl (2.5-4.0) 06/22/21 05:27 Albumin/Globulin Ratio 0.7 (0.9-2) L 06/22/21 05:27 Triglycerides 96 mg/dl (0-150) 06/15/21 16:20 Cholesterol 100 mg/dl (0-200) 06/15/21 16:20 LDL Cholesterol, Calc 50 mg/dl 06/15/21 16:20 VLDL Cholesterol, Calc 19 mg/dl 06/15/21 16:20 HDL Cholesterol 31 mg/dl 06/15/21 16:20 Cholesterol/HDL Ratio 3 06/15/21 16:20 Lipase 252 U/L (73-393) 06/17/21 04:29 Procalcitonin 1.15 ng/ml (0-0.5) H 06/17/21 04:29 Urine Color [place] 06/15/21 17:10 Urine Appearance Cloudy (Clear) A 06/15/21 17:10 Urine pH 5.0 (4.5-7.5) 06/15/21 17:10 Ur Specific [place] 1.037 (1.000-1.030) H 06/15/21 17:10 Urine Protein Trace (Negative) H 06/15/21 17:10 Urine Glucose (UA) Negative (Negative) 06/15/21 17:10 Urine Ketones Trace (Negative) H 06/15/21 17:10 Urine Blood 3+ (Negative) H 06/15/21 17:10 Urine Nitrite Negative (Negative) 06/15/21 17:10 Urine Bilirubin Negative (Negative) 06/15/21 17:10 Urine Urobilinogen Negative (Negative) 06/15/21 17:10 Ur Leukocyte Esterase 1+ (Negative) H 06/15/21 17:10 Urine WBC (Auto) 5-10 /hpf (0-5) H 06/15/21 17:10 Urine RBC (Auto) >30 /hpf (0-4) H 06/15/21 17:10 U Hyaline Cast (Auto) 1-5 /lpf (0-5) 06/15/21 17:10 U Epithel Cells (Auto) >30 /lpf (0-5) H 06/15/21 17:10 Urine Bacteria (Auto) Negative (Negative) 06/15/21 17:10 Ur Renal Epithelial Cell Not Reportable 06/15/21 14:01 Urine Mucus Present (None Prsent) A 06/15/21 14:01 Urine Osmolality 386 mOsm/kg (500-800) L 06/24/21 10:56 Ur Random Creatinine 54.8 mg/dl 06/24/21 10:56 Ur Random Sodium 107 mmol/L 06/24/21 10:56 Ur Random Potassium 84.9 mmol/L 06/15/21 17:10 Ur Random Chloride < 10 mmol/L 06/15/21 17:10 Ur Random Urea Nitrogn 761 mg/dl 06/15/21 17:10 Nasal Screen MRSA (PCR) Negative (Negative) 06/15/21 15:30 COVID-19 Eval Order Covid19 at [facility] 06/15/21 09:14 SARS-CoV-2 (PCR) NEGATIVE (Negative) 06/15/21 09:14 Hepatitis A IgM Ab NON-REACTIVE (NON-REACTIVE) 06/16/21 13:53 Hep Bs Antigen Neg (Neg) 06/16/21 13:53 Hep B Core IgM Ab NON-REACTIVE (NON-REACTIVE) 06/16/21 13:53 Hepatitis C Antibody Neg (Neg) 06/16/21 13:53 Impressions Abdomen/Pelvis CTA 06/15/21 08:45 CT angio abd pelvis wo/w con CT DOSE: CLINICAL HISTORY: tearing chest pain from chest in to entire abdomen TECHNIQUE: A dose lowering technique was utilized adhering to the principles of ALARA. COMPARISON STUDY: None. FINDINGS: Abdominal aorta is normal in caliber with scattered calcifications of its wall. There is no dissection or aneurysmal dilatation is seen. Liver, spleen and bilateral adrenal glands are unremarkable. Gallbladder is fluid-filled without intraluminal radiopaque gallstones. Evaluation of the pancreas shows 3.3 cm area of decreased opacification within pancreatic body, extensive peripancreatic fat stranding and 2.6 x 2.2 cm fluid collection at superior aspect of the pancreatic body concerning for acute pancreatitis which is complicated by focal area of necrosis and possible abscess formation. Scattered areas of fluid collection is seen extending from the pancreas to the lower abdomen and right and left paracolic gutter. Evaluation of the kidneys shows no evidence of hydronephrosis or nephrolithiasis. Urinary bladder is adequately filled with urine. Prostate gland is mildly enl arged. There is large diverticulum at the first portion of duodenum with diffuse enhancement of its mucosa and air-fluid level. Second and third portion of duodenum shows mild thickening of its wall and diffuse mucosal enhancement, likely reactive due to close proximity to the pancreas. Distal loops of small bowel are collapsed. Large bowel is nondilated. Diverticulosis of sigmoid colon is seen without evidence of diverticulitis. Adenopathy: None. Osseous structures: Degenerative changes of the spine. IMPRESSION: 1. Acute pancreatitis. Possible pancreatic necrosis and abscess/cyst formation. Short-term follow-up is recommended. Report will be sent to emergency Department. 2. Large duodenal diverticulum. Mucosal enhancement and wall thickening of proximal duodenum, likely reactive due to surrounding inflammatory changes from acute pancreatitis. 3. Diverticulosis of sigmoid colon without evidence of diverticulitis. 4. Normal abdominal aorta without aneurysmal dilatation or dissection. 5. The rest of findings as above. ACT 112: Negative or not required by law. The above report was generated using voice recognition software. It may contain grammatical, syntax or spelling errors. Electronically signed by: Shandra Pérez DO 06/15/2021 10:54 AM Chest CTA 06/15/21 08:45 CT ANGIOGRAM OF THE CHEST COMBO CLINICAL HISTORY: Lower chest pain is at radiates into entire back. Vomiting. COMPARISON STUDY: None TECHNIQUE: Before and following the IV administration of 120 cc of Optiray, CT angiogram of the chest was performed from the thoracic inlet to the upper abdomen utilizing the dissection protocol. Images are reviewed in the axial, sagittal, and coronal planes. 3-D MIPS images are created and assessed. IV contrast was administered without complication. A dose lowering technique was utilized adhering to the principles of ALARA. CT DOSE: 2573.26 mGy.cm FINDINGS: Thyroid: Imaged portions of the thyroid gland are normal in size and attenuation. Mild wall thinning of distal esophagus with surrounding fat stranding (6/179). Small fat containing hiatal hernia is seen. Thoracic aorta: The thoracic aorta is normal in caliber and demonstrates standard 3-vessel arch anatomy. No dissection is seen. Minimal calcified aortic wall plaques are seen within aortic arch. Pulmonary vasculature: Is normal in caliber. Heart: The heart is normal in size and configuration, and without pericardial effusion. Coronary calcifications are seen. Lungs and pleural spaces: Tracheobronchial tree is patent. Small amount of secretion is seen within right tracheal wall, vinny and dependent portion of the left mainstem bronchus. Patchy consolidative opacities are seen at dependent portion of the left lower lobe and lingula which opacified with IV contrast most likely representing atelectasis. Mild diffuse thickening of bronchial rios are seen throughout bilateral lungs. Mild compressive atelectasis is seen at dependent portions of bilateral lower lobes. Limited evaluation due to motion artifact and low inspiratory effort. Trace left pleural effusion is seen. Upper abdomen: Please see separate report of CT of abdomen and pelvis. Skeletal structures: No multilevel degenerative changes of the spine with prominent anterior osteophytes. IMPRESSION: 1. Mild wall thickening and surrounding fat stranding within distal esophagus which might represent esophagitis versus other etiology. Please correlate above- mentioned findings with GI evaluation. 2. Normal appearance of aorta without aneurysmal dilatation or dissection. 3. Atelectasis within lingula and left lower lobe. Possible bronchitis. Trace left pleural effusion. 4. Atherosclerosis. 5. The rest of findings as above. ACT 112: Negative or not required by law. The above report was generated using voice recognition software. It may contain grammatical, syntax or spelling errors. Electronically signed by: Shandra Pérez DO 06/15/2021 10:39 AM Chest X-Ray 06/15/21 08:45 XR chest 1V portable CLINICAL HISTORY: chest pain COMPARISON STUDY: No previous studies for comparison. FINDINGS: No pneumothorax. Mild blunting of the left costophrenic angle which could be due to atelectasis or small left pleural effusion. Linear density at the left base might represent atelectasis or infiltrates. Overall lung volumes are decreased with crowded lung markings. Cardiomediastinal silhouette is within normal limits in size. No significant pulmonary vascular congestion.. Aorta is tortuous. Osseous structures: Degenerative changes of the spine and bilateral shoulder. IMPRESSION: 1. Atelectasis or infiltrate at the left base. Possible small left pleural effusion. ACT 112: Negative or not required by law. The above report was generated using voice recognition software. It may contain grammatical, syntax or spelling errors. Electronically signed by: Shandra Pérez DO 06/15/2021 10:27 AM Liver Ultrasound 06/15/21 17:00 US liver CLINICAL HISTORY: 75 years-old Male presenting with r/o gallstone. patient has pancreatitis. TECHNIQUE: Real-time grayscale ultrasound imaging of the upper abdomen was performed for a focused evaluation at the site of clinical concern. COMPARISON: None. Correlation is made with CT of the abdomen and pelvis performed earlier today. FINDINGS: Pancreas is not well seen due to overlying bowel gas. Liver is normal in size with heterogeneous echogenicity and slightly coarsening of echotexture of its parenchyma. Minimal ascites is seen. Gallbladder is fluid-filled without definite evidence of intraluminal calculi and multiple avascular echogenic foci attached to mildly thickening gallbladder wall which could represent polyps or tumefactive sludge. Isaacs's sign cannot be assessed due to pain medications. Common bile duct is nondilated measuring 0.4 cm in diameter. Right kidney is measuring 11.3 cm in length without evidence of hydronephrosis. IMPRESSION: 1. No gallstones seen. Mild diffuse thickening of gallbladder wall which could be due to ascites/edema or cholecystitis. Small polyps versus tumefactive sludge. 2. Possible hepatic steatosis. 3. Pancreas is not visualized. 4. Mild ascites. ACT 112: Negative or not required by law. Electronically signed by: Shandra Pérez DO 06/15/2021 6:28 PM Orbit X-Ray 06/17/21 22:05 XR orbits for MRI HISTORY: 75 years-old Male Screening for foreign body for MRI COMPARISON: None TECHNIQUE: 3 views of the orbits FINDINGS: No opaque foreign body of the orbits. No acute facial bone fracture identified. Mastoid air cells and paranasal sinuses are generally clear. IMPRESSION: No opaque foreign body of the orbits. ACT 112: Negative or not required by law. The above report was generated using voice recognition software. It may contain grammatical, syntax or spelling errors. Electronically signed by: Akhil Padron M.D. 06/18/2021 7:06 AM Abdomen MRI 06/18/21 10:04 MR abdomen wo/w con HISTORY: 75 years-old Male Pancreatitis with necrosis acute epigastric abdominal pain with concern for acute pancreatitis COMPARISON: Ultrasound of the liver 06/15/2021, CTA chest, abdomen and pelvis 06/15/2021 TECHNIQUE: MRI of the abdomen was obtained both with and without the use of 10.0 mL Gadavist FINDINGS: Study is mildly motion degraded. Trace right and small left pleural effusions. Trace abdominal pelvic free fluid. Moderate interstitial and peripancreatic edema is similar to comparison there is an ovoid 2.6 x 2.3 x 2.0 cm T2 hyperintense collection along the superior aspect of the pancreatic body on image 211 series 7 suggestive of an acute peripancreatic fluid collection. No encapsulated fluid collections are identified. No pancreatic ductal dilation or pancreatic mass identified. There is heterogeneously decreased enhancement involving the pancreatic body and uncinate process which is similar to comparison. Partially occlusive thrombus of the superior mesenteric vein. Duodenal diverticulum. Mild distention of the proximal duodenum is suggestive of a focal ileus. Wall thickening of the stomach and duodenum is likely reactive. No bowel obstruction. Mild nonspecific bilateral perinephric stranding. Unremarkable appearance of the liver. 5 mm T2 hyperintense lesion involving the posterior right hepatic lobe is too small to characterize however suggestive of a probable cyst. The gallbladder is mildly contracted and demonstrates mild wall thickening. No biliary ductal dilation identified. IMPRESSION: 1. Findings compatible with acute pancreatitis. Areas of heterogeneously decreased enhancement of the pancreas, notably within the body and uncinate process are suggestive of necrotizing pancreatitis. No pancreatic ductal dilation or pancreatic mass identified. 2. 2.6 cm T2 hyperintense collection along the superior margin of the pancreatic body is suggestive of an acute peripancreatic fluid collection. No abscess. 3. Small partially occlusive thrombus of the superior mesenteric vein. 4. Trace right and small left pleural effusions. 5. Gastric and duodenal wall thickening with moderate distention of the proximal duodenum, likely reactive from the acute pancreatitis. ACT 112: Negative or not required by law. The above report was generated using voice recognition software. It may contain grammatical, syntax or spelling errors. Electronically signed by: Akhil Padron M.D. 06/18/2021 3:57 PM Abdomen Ultrasound 06/21/21 15:00 ABDOMINAL ULTRASOUND, RIGHT UPPER QUADRANT HISTORY: Pancreatic pseudocyst. COMPARISON: Abdominal ultrasound 06/15/2021. Abdominal MRI 06/18/2021. FINDINGS: Pancreas: Obscured by overlying bowel gas. Liver: The liver is echogenic consistent with fatty change. Trace perihepatic fluid noted. The main portal vein is patent. Gallbladder: The gallbladder is contracted. There is mild gallbladder wall thickening, unchanged. Small amount of echogenic sludge is noted. Negative sonographic Isaacs sign. CBD: 4 mm. Right kidney: No hydronephrosis. IMPRESSION: 1. Hepatic steatosis. 2. Trace perihepatic fluid. 3. The pancreas was obscured by overlying bowel gas. 4. The gallbladder is contracted. There is mild gallbladder wall thickening with a small amount of sludge. This is similar to the prior study. ACT 112: Negative or not required by law. Electronically signed by: Romeo Feliz M.D. 06/21/2021 3:30 PM Abdomen/Pelvis CT 06/21/21 16:[address] WITH IV AND ORAL CONTRAST CT DOSE: 796.64 mGy.cm HISTORY: Pancreatic collection. R/O Intra-abdominal abscess TECHNIQUE: Multiaxial CT images of the abdomen and pelvis were performed following the use of intravenous and oral contrast. A dose lowering technique was utilized adhering to the principles of ALARA. COMPARISON STUDY: Abdominal ultrasound 06/21/2021. Abdominal MRI 06/18/2021. Abdomen and pelvis CT 06/15/2021. FINDINGS: There are trace right and small left pleural effusions, unchanged. Bibasilar densities favor subsegmental atelectasis. No pneumoperitoneum. No pneumatosis. No suspicious lytic or blastic osseous lesions. The liver, spleen, and adrenal glands unremarkable. Subcentimeter bilateral renal hypodense lesions are technically too small to characterize but favor cysts. There is mild bilateral perinephric edema, unchanged. No hydronephrosis. Normal caliber abdominal aorta. No retroperitoneal lymphadenopathy. The main portal vein and splenic vein are patent. Partial thrombus of the superior mesenteric vein re aidee unchanged. Normal gallbladder. Peripancreatic edema/fluid has progressed in the interval. There is heterogeneous enhancement within the uncinate process of the pancreas as well as the body of the pancreas suggestive of necrosis. This is similar to the prior study. Increase in size in the 3.7 cm peripancreatic collection superior to the pancreas best seen on image 141. Small focus of gas at the pancreatic head. This favors a duodenal diverticula. This remains unchanged. Distended proximal duodenum, unchanged with thickening of the second and third portions of the duodenum. This likely reactive to the pancreatitis and results in a partial duodenal obstruction. Contrast does extend into the remaining small bowel loops. Therefore, no evidence for high-grade obstruction. There is gas within the bladder lumen likely due to prior catheterization. The prostate gland is mildly enlarged. There is a small amount of ascites present. Colonic diverticulosis. No evidence for acute diverticulitis. Mild thickening at the hepatic flexure of the colon is likely reactive to the pancreatitis. Normal appendix. IMPRESSION: 1. Redemonstration of the acute pancreatitis with progressive peripancreatic edema/fluid and slight increase in size in 3.7 cm peripancreatic cyst. 2. Heterogeneous enhancement within the body and uncinate process of the pancreas is again noted consistent with pancreatic necrosis. 3. No change in the partially thrombosed superior mesenteric vein. 4. Low-grade partial duodenal obstruction which is likely reactive to the acute pancreatitis. This remains unchanged. 5. Trace right and small left pleural effusions, unchanged. 6. Additional findings as described above. ACT 112: Negative or not required by law. Electronically signed by: Romeo Feliz M.D. 06/21/2021 8:06 PM Hospital Course (1) Sepsis: Resuscitated. Secondary to acute necrotizing pancreatitis-resolving. Cont current antibiotic therapy. Leukocytosis continues to improve-13K on discharge. Remains afebrile and without abdominal pain for several days. Tolerating PO. (2) Acute necrotizing pancreatitis: Etiology uncertain with some sludge seen on imaging. He is improved clinically and leukocytosis continues to improve. Doing well on current diet. Abdominal MRI showed acute necrotizing pancreatitis but no evidence of abscess. 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. Cont IV ertapenem for total 4 weeks per GI attending. He will need followup at that time in the [facility] Gastro[facility]ology office for re-evaluation of the pancreas +/- imaging. Weekly CBC, BMP to be followed by outpatient PCP. Placed on PPI BID for duodenal inflammation. (3) Acute renal insufficiency: FRANKLIN 2/2 sepsis resolved with normal creatinine. (4) Hypertension: Sepsis on admission with FRANKLIN, lis/HCTZ was initially held, however, BP is up so will restart lisinopril 20mg daily. Cont to avoid HCTZ in case this was a trigger for pancreatitis. (5) Mesenteric vein thrombosis: No evidence on imaging or clinically of any ischemic bowel. Placed on heparin 06/22 and doing well, no drop in Hb or concerning bleedng issues. Transition to apixaban. (6) Hyponatremia: Multifactorial including poor PO intake and dehydration related to sepsis and pancreatitis. Cont to monitor after diet restarted and oral intake is improving. Stopped HCTZ also because this may continue to contribute to low sodium. followup labwork in PCP office in one week. (7) Acute exacerbation of chronic low back pain: Acute exacerbation of chronic lower back pain-reportedly same quality and distribution. Supportive care efforts-patient reports feeling better today. Encourage ambulation as tolerated. Pain is at baseline. Ibuprofen not advised to take regularly AT time of discharge he was hemodynamically stable and afebrile and tolerating PO. He was oxygenating well on room air and denied any abdominal pain. An working ultrasound -guided IV line was in place in the RUE. He was sent home in stable condition with close primary care follow-up recommended. Total Time Total Time Spent Total Time Spent (In Minutes): 60 Discharge Plan Discharge Items Patient Disposition: Home - Home Health Services Reason For Visit: ACUTE NECROTIZING PANCREATITIS Discharge Diagnosis: Sepsis Acute necrotizing pancreatitis Acute renal insufficiency Mesenteric vein thrombosis Hyponatremia Chronic low back pain Condition on Discharge: Good Activity: Resume your previous activity Non-emergency contact: Primary Care Provider and [employer] Call non-emergency contact if: you have any medication questions, your symptoms worsen, your pain is not controlled, your pain is worsening, your pain is unusual for you and your pain is concerning for you Follow-up/Referrals: Júnior Thompson PA-C [Primary Care Provider] - Diet: Regular Addtl Attending Provider Instructions: Please take all medications as instructed on discharge list below. You have been put on a blood thinner called APIXABAN after a blood clot was discovered in your belly. Refills of this may be obtained from your primary care office. Typical course of treatment is 3 months. You are being given an additional two weeks of intravenous antibiotic (ERTAPENEM) to treat a presumed infection in your pancreas. There is a cyst there that will require close follow up with [facility] in 2 weeks time, Dr. Trenton Hale. Please contact the [facility] office to schedule your follow-up appointment. Further imaging may be required. While on this intravenous antibiotic, you will need to have weekly nonfasting labs drawn. These can be drawn by the [employer], however, the results need to be followed by your primary care doctor. Your blood pressure medication has been changed to LISINOPRIL only without the thiazide component. You are being given a medication that will continue to calm the inflammation seen in your GI tract, PANTOPROZOLE. It is recommended that you follow-up with your primary care doctor within one week of discharge to ensure you are still doing well after going home and to facilitate the coordination of the care listed above. They will review your new medications and ensure you are tolerating everything, as well as order monitoring labs as appropriate. It was a pleasure taking care of you! Please call if you have any questions or problems. You can reach a [facility] hospitalist on duty at [facility] 24 hours a day by calling [phone]. Take care of yourself. Malu Box, DO [facility] Hospitalist Pending Studies at Discharge: No Stand-Alone Forms: My [facility] Medications and DC Order Prescriptions: New apixaban 5 mg tablet 5 mg PO DIRECTED Qty: 70 RF: 0 ertapenem 1 gram recon soln 1 g IV DAILY Qty: 14 RF: 0 lisinopril 20 mg Tablet 20 mg PO QAM Qty: 30 RF: 0 pantoprazole 40 mg Tablet,Delayed Release (Dr/Ec) 40 mg PO BID Qty: 60 RF: 0 Continued atorvastatin [Lipitor] 20 mg tablet 20 mg PO HS RF: 0 famotidine [Pepcid] 20 mg tablet 20 mg PO BID RF: 0 Fish Oil 340-1,000 mg Capsule 1 cap PO QAM RF: 0 tamsulosin [Flomax] 0.4 mg Capsule 0.4 mg PO HS RF: 0 potassium citrate [Urocit-K 10] 10 mEq (1,080 mg) Tablet Extended Release 10 meq PO BID RF: 0 finasteride [Proscar] 5 mg Tablet 5 mg PO QAM RF: 0 cholecalciferol (vitamin D3) [Vitamin D3] 50 mcg (2,000 unit) Capsule 50 mcg PO QAM RF: 0 Discontinued lisinopril-hydrochlorothiazide [Zestoretic] 20-25 mg tablet 1 tab PO QAM RF: 0 Discharge Orders: Discharge Order (Routine); Ordered 06/25/21 Ordered By: Malu Box Admission Data Admit Date/Time: 06/15/21 13:50 Attending Provider: Malu Box Admit Provider: Elise Reed Primary Care Provider: Júnior Thompson Other Providers: [facility] ; Monica Sewell ; Rafita [facility] ; Elise Reed ; Trenton Hale ; Julissa Umanzor ; Akhil Perry ; Patrick Miller ; Raymond Slater I. ; Sadi Dye II ; Alicia Weinstein ; Hernan Orr
== END 2021-06-25 16:40 | disposition home health service (06) | DRG 871 ==
LOC: ED 08:32 → SUATTDRO 13:50 → 1E 13:50 → 2S 06-17 11:37 → 3W 06-23 14:34
DX: I10 Essential (primary) hypertension; N28.9 Disorder of kidney and ureter, unspecified; E86.0 Dehydration; E78.5 Hyperlipidemia, unspecified; Z98.890 Other specified postprocedural states; R74.8 Abnormal levels of other serum enzymes; G89.29 Other chronic pain; K85.91 Acute pancreatitis with uninfected necrosis, unspecified; K55.069 Acute infarction of intestine, part and extent unspecified; K21.9 Gastro-esophageal reflux disease without esophagitis; A41.9 Sepsis, unspecified organism; Z87.891 Personal history of nicotine dependence; R65.20 Severe sepsis without septic shock; M54.5 Low back pain; E87.1 Hypo-osmolality and hyponatremia; K86.2 Cyst of pancreas; N40.0 Benign prostatic hyperplasia without lower urinary tract symptoms; K76.0 Fatty (change of) liver, not elsewhere classified; N17.9 Acute kidney failure, unspecified